=== PATIENT | female | born 1960 | race Caucasian/White ===

== ENCOUNTER 2023-10-27 07:01 | Inpatient (IN) | payer MEDICARE, OTHER, SELFPAY ==
[2023-10-27] VITALS (22 sets, daily range): BP systolic 100–143; BP diastolic 59–83; PULSE 82–140; RESP 18–22; TEMP 36.6–37.2; O2SAT 90–99; BMI 53.8; BMI 53.7
--- NOTE | 2023-10-27 07:07 | ED_ITS ---
HPI - General Adult General Time Seen by Provider: 07:07 <Ady Horan MD - Last Filed: 10/27/23 07:43> Date Seen: 10/27/23 <Ady Horan MD - Last Filed: 10/27/23 07:43> Chief complaint: Abdominal Pain <Ady Horan MD - Last Filed: 10/27/23 07:43> Stated complaint: stomach pain-PT / cardiac issues-EMS <Ady Horan MD - Last Filed: 10/27/23 07:43> Time Seen by Provider: 10/27/23 07:06 <Ady Horan MD - Last Filed: 10/27/23 07:43> Source: patient, RN notes reviewed and old records reviewed <Ady Horan MD - Last Filed: 10/27/23 07:43> Mode of arrival: EMS <Ady Horan MD - Last Filed: 10/27/23 07:43> Limitations: no limitations <Ady Horan MD - Last Filed: 10/27/23 07:43> History of Present Illness HPI narrative: 63-year-old female who presents today with abdominal pain. Patient notes several weeks of ?digestive issues? with nausea vomiting, dry heaves, diarrhea. This is been fairly consistent. Denies any blood in stools. Denies any shortness of breath or chest pain, does state she notes occasional flutter in her chest and that her home nurses noted her heart rate has been high. She has chronic lower extremity edema with a wound that is being treated on the left, increased weeping from the right. Denies any history of cardiac issues including dysrhythmia, heart failure <Ady Horan MD - Last Filed: 10/27/23 07:43> Related Data Home medications: Home Medications Medication Instructions Recorded Confirmed bacitracin 500 unit/gram topical topical 10/27/23 ointment buspirone 10 mg tablet 10 mg PO BID 10/27/23 10/27/23 calcium carbonate 600 mg-vitamin tab PO DAILY 10/27/23 D3 10 mcg (400 unit) tablet cetirizine 10 mg tablet 10 mg PO DAILY 10/27/23 10/27/23 cholecalciferol (vitamin D3) 125 125 mcg PO DAILY 10/27/23 10/27/23 mcg (5,000 unit) capsule citalopram 10 mg tablet 10 mg PO DAILY 10/27/23 10/27/23 citalopram 20 mg tablet 20 mg PO DAILY 10/27/23 10/27/23 hydroxyzine HCl 25 mg tablet 25 mg PO QID 10/27/23 10/27/23 levothyroxine 150 mcg tablet 150 mcg PO DAILY 10/27/23 10/27/23 (Synthroid) omeprazole 40 mg capsule,delayed 40 mg PO DAILY 10/27/23 10/27/23 release triamcinolone acetonide 0.1 % topical 10/27/23 topical ointment <Ady Horan MD - Last Filed: 10/27/23 07:43> Allergies/adverse reactions: Allergies Allergy/AdvReac Type Severity Reaction Status Date / Time Penicillins Allergy Unknown Verified 10/27/23 07:30 <Ady Horan MD - Last Filed: 10/27/23 07:43> [facility] Social History: Social History Smoking Status: Former smoker How often do you have a drink containing alcohol: never AUDIT-C Alcohol total score: 0 Non-prescribed substance use: denies use <Ady Horan MD - Last Filed: 10/27/23 07:43> Exam Narrative: Exam Narrative: General: Well-developed and well-nourished, no acute distress Head: Atraumatic and normocephalic Eyes: Pupils are equal reactive, extraocular motions intact, conjunctiva clear ENT: External nose and ears are normal, posterior pharynx without erythema or exudate Neck: No midline cervical tenderness, full spontaneous range of motion the neck, trachea midline, no adenopathy Heart: Irregular and tachycardic Lungs: Clear to auscultation bilaterally without wheezes or crackles Abdomen: Soft, nontender, nondistended with active bowel sounds Musculoskeletal: No tenderness, deformity, or edema Neurologic: Awake, alert, and oriented x3, no gross focal neurologic deficits, cranial nerves intact as tested Psych: Mood and affect are appropriate Skin: Numerous neurofibroma <Ady Horan MD - Last Filed: 10/27/23 07:43> Const: Vital Signs, click to edit/add: Vital Signs - 24 hr 10/27/23 07:17 10/27/23 07:32 10/27/23 07:33 Temperature 98.0 F Pulse Rate 137 H 133 H Pulse Rate [Right Pulse Oximeter] 140 H Respiratory Rate 22 Blood Pressure 122/72 Blood Pressure [Ri ght Upper Arm] 133/74 Pulse Oximetry 96 96 96 Oxygen Delivery Me thod Room Air 10/27/23 08:00 10/27/23 08:01 10/27/23 08:07 Temperature Pulse Rate 119 H 123 H Pulse Rate [Right Pulse Oximeter] Respiratory Rate Blood Pressure 112/65 100/65 Blood Pressure [Ri ght Upper Arm] Pulse Oximetry 99 98 Oxygen Delivery Me thod 10/27/23 08:31 10/27/23 08:33 Temperature Pulse Rate 132 H Pulse Rate [Right Pulse Oximeter] Respiratory Rate Blood Pressure 142/75 H Blood Pressure [Ri ght Upper Arm] Pulse Oximetry 92 Oxygen Delivery Me thod <Ady Horan MD - Last Filed: 10/27/23 07:43> Vital Signs, click to edit/add: Vital Signs - 24 hr 10/27/23 07:17 10/27/23 07:32 10/27/23 07:33 Temperature 98.0 F Pulse Rate 137 H 133 H Pulse Rate [Right Pulse Oximeter] 140 H Respiratory Rate 22 Blood Pressure 122/72 Blood Pressure [Ri ght Upper Arm] 133/74 Pulse Oximetry 96 96 96 Oxygen Delivery Me thod Room Air 10/27/23 08:00 10/27/23 08:01 10/27/23 08:07 Temperature Pulse Rate 119 H 123 H Pulse Rate [Right Pulse Oximeter] Respiratory Rate Blood Pressure 112/65 100/65 Blood Pressure [Ri ght Upper Arm] Pulse Oximetry 99 98 Oxygen Delivery Me thod 10/27/23 08:31 10/27/23 08:33 Temperature Pulse Rate 132 H Pulse Rate [Right Pulse Oximeter] Respiratory Rate Blood Pressure 142/75 H Blood Pressure [Ri ght Upper Arm] Pulse Oximetry 92 Oxygen Delivery Me thod <Tenisha Mcfadden MD - Last Filed: 10/27/23 09:13> Course Course ED Course: Patient seen and examined, prior records are reviewed including clinical summary. Patient history of neurofibromatosis, hypothyroidism, obesity, anxiety who presents today with nausea, vomiting, diarrhea as well as upper abdominal pain which has been going on for a couple weeks. On exam here, no abdominal tenderness, labs are ordered, consider gastritis or acute cholecystitis. Patient is found to be in atrial fibrillation with RVR, patient denies history of this. Her nausea and gastric issues may be related to this as an anginal equivalent. Also concern for possible pulmonary embolism although patient has no hypoxia pleuritic chest pain. Labs are ordered and Cardizem IV will be gi jasmin. Patient's vital is stable with no respiratory distress, no indication for emergent cardioversion. Plan sign out to oncoming provider with likely admission. <Ady Horan MD - Last Filed: 10/27/23 07:43> Reevaluation(s) Reevaluation #1: I was asked take over the care this patient. Her EKG shows atrial fibrillation with a pulse of 146. Chest x-ray, read by me, shows mild vascular congestion. As I arrived, she was receiving IV Cardizem which did bring her pulse into the 120s and her systolic blood pressure to 100. She remained asymptomatic. And shortly after her blood pressure did rebound to 140 systolic, pulse remained in the 120s to 130s. Blood work returned showing anemia with a hemoglobin of 9.5, hematocrit of 31.1 And a mean cell volume 67. potassium was low at 2.5. Normal magnesium, normal lipase, normal LFTs, normal kidney function. UA was a poor specimen. IV potassium was started this patient did not think she could swallow oral potassium. She was also given IV Zofran for her continued nausea. I did speak to Dr. Kennedy who will accept the patient for admission. Diltiazem drip started in the ED. <Tenisha Mcfadden MD - Last Filed: 10/27/23 09:13> Vital Signs Vital signs: Initial Vital Signs Temperature 98.0 F 10/27/23 07:17 Temperature Source Temporal Artery Scan 10/27/23 07:17 Pulse Rate 140 H 10/27/23 07:17 Respiratory Rate 22 10/27/23 07:17 Blood Pressure 133/74 10/27/23 07:17 Blood Pressure Mean 93 10/27/23 07:17 Blood Pressure Position Sitting 10/27/23 07:17 Pulse Oximetry 96 10/27/23 07:17 Oxygen Delivery Method Room Air 10/27/23 07:17 Vital Signs Temperature 98.0 F 10/27/23 07:17 Pulse Rate 140 H 10/27/23 07:17 Respiratory Rate 22 10/27/23 07:17 Blood Pressure 133/74 10/27/23 07:17 Pulse Oximetry 96 10/27/23 07:17 Oxygen Delivery Method Room Air 10/27/23 07:17 Temperature 98.0 F 10/27/23 07:17 Pulse Rate 132 H 10/27/23 08:33 Respiratory Rate 22 10/27/23 07:17 Blood Pressure 142/75 H 10/27/23 08:31 Pulse Oximetry 92 10/27/23 08:33 Oxygen Delivery Method Room Air 10/27/23 07:17 <Ady Horan MD - Last Filed: 10/27/23 07:43> Initial Vital Signs Temperature 98.0 F 10/27/23 07:17 Temperature Source Temporal Artery Scan 10/27/23 07:17 Pulse Rate 140 H 10/27/23 07:17 Respiratory Rate 22 10/27/23 07:17 Blood Pressure 133/74 10/27/23 07:17 Blood Pressure Mean 93 10/27/23 07:17 Blood Pressure Position Sitting 10/27/23 07:17 Pulse Oximetry 96 10/27/23 07:17 Oxygen Delivery Method Room Air 10/27/23 07:17 Vital Signs Temperature 98.0 F 10/27/23 07:17 Pulse Rate 140 H 10/27/23 07:17 Respiratory Rate 22 10/27/23 07:17 Blood Pressure 133/74 10/27/23 07:17 Pulse Oximetry 96 10/27/23 07:17 Oxygen Delivery Method Room Air 10/27/23 07:17 Temperature 98.0 F 10/27/23 07:17 Pulse Rate 132 H 10/27/23 08:33 Respiratory Rate 22 10/27/23 07:17 Blood Pressure 142/75 H 10/27/23 08:31 Pulse Oximetry 92 10/27/23 08:33 Oxygen Delivery Method Room Air 10/27/23 07:17 <Tenisha Mcfadden MD - Last Filed: 10/27/23 09:13> Medications Administered Medications: Generic Name Dose Route Start Last Admin Trade Name Freq PRN Reason Stop Dose Admin Sodium Chloride 1,000 mls @ 500 mls/hr 10/27/23 07:57 10/27/23 08:17 0.9 % Sodium Chloride 1000 Ml IV 10/27/23 09:56 500 mls/hr .Q2H IRLANDA Administration Potassium Chloride 10 meq in 100 mls @ 100 mls/hr 10/27/23 08:30 10/27/23 08:43 Potassium Chloride IVPB 10/27/23 12:29 100 mls/hr Q90M IRLANDA Administration Discontinued Medications Generic Name Dose Route Start Last Admin Trade Name Freq PRN Reason Stop Dose Admin Diltiazem HCl 20 mg 10/27/23 07:32 10/27/23 07:55 Diltiazem 5 Mg/Ml Inj IVP 10/27/23 07:33 20 mg ONCE ONE Administration Ondansetron HCl 4 mg 10/27/23 08:23 10/27/23 08:31 Ondansetron 2 Mg/Ml Inj IVP 10/27/23 08:24 4 mg ONCE ONE Administration <Ady Horan MD - Last Filed: 10/27/23 07:43> Generic Name Dose Route Start Last Admin Trade Name Freq PRN Reason Stop Dose Admin Sodium Chloride 1,000 mls @ 500 mls/hr 10/27/23 07:57 10/27/23 08:17 0.9 % Sodium Chloride 1000 Ml IV 10/27/23 09:56 500 mls/hr .Q2H IRLANDA Administration Potassium Chloride 10 meq in 100 mls @ 100 mls/hr 10/27/23 08:30 10/27/23 08:43 Potassium Chloride IVPB 10/27/23 12:29 100 mls/hr Q90M IRLANDA Administration Discontinued Medications Generic Name Dose Route Start Last Admin Trade Name Freq PRN Reason Stop Dose Admin Diltiazem HCl 20 mg 10/27/23 07:32 10/27/23 07:55 Diltiazem 5 Mg/Ml Inj IVP 10/27/23 07:33 20 mg ONCE ONE Administration Ondansetron HCl 4 mg 10/27/23 08:23 10/27/23 08:31 Ondansetron 2 Mg/Ml Inj IVP 10/27/23 08:24 4 mg ONCE ONE Administration <Tenisha Mcfadden MD - Last Filed: 10/27/23 09:13> Medical Decision Making MDM Narrative Medical decision making narrative: 63-year-old female presenting with hypokalemia, anemia and atrial fibrillation with RVR. AFib with RVR certainly could be secondary to hypokalemia. Treatment started per above. Patient will be admitted for further management. <Tenisha Mcfadden MD - Last Filed: 10/27/23 09:13> Medical Records Medical records reviewed: Yes I reviewed the patient's medical records <Tenisha Mcfadden MD - Last Filed: 10/27/23 09:13> Lab Data Lab results reviewed: Yes I reviewed the patient's lab results <Tenisha Mcfadden MD - Last Filed: 10/27/23 09:13> Labs: Lab Results 10/27/23 10/27/23 10/27/23 Range/Units 07:21 07:41 08:15 WBC 6.77 (4.50-11.00) K/uL RBC 4.66 (4.00-5.20) m/uL Hgb 9.5 L (12.0-16.0) gm/dL Hct 31.1 L (33.0-51.0) % MCV 67 L (80-100) fL MCH 20 L (26-34) pg MCHC 31 L (32-36) gm/dL RDW Coeff of [place] 22.1 H (11.5-15.5) % Plt Count 385 (140-440) K/uL Neut % (Auto) 84.3 H (42.0-72.0) % Lymph % (Auto) 7.4 L (20-44) % [place] % (Auto) 6.9 (0.0-11.0) % Eos % (Auto) 0.6 (0.0-7.0) % Baso % (Auto) 0.4 (0.0-3.0) % Neut # (Auto) 5.70 (1.7-7.0) K/uL Lymph # (Auto) 0.50 L (0.90-2.90) K/uL [place] # (Auto) 0.50 (0.00-0.90) K/UL Eos # (Auto) 0.04 (0.00-0.50) K/uL Baso # (Auto) 0.03 (0.00-0.30) K/uL Abs Immat Gran (auto) 0.03 (0.00-0.30) K/uL Imm/Tot Granulo (auto) 0.4 % Diff Slide Review Acceptable Review (Acceptable) D-Dimer Quant (PE/DVT) 0.56 H (0.00-0.50) ug/ml Sodium 136 (135-149) mmol/L Potassium 2.5 L* (3.6-5.1) mmol/L Chloride 105 (96-114) mmol/L Carbon Dioxide 17 L (20-32) mmol/L Anion Gap 14 (7-15) mEq/L BUN 12 (7-30) mg/dL Creatinine 0.9 (0.5-1.5) mg/dL Estimated Creat Clear 42.32 Estimated GFR 71 ml/min Glucose 87 (60-115) mg/dL Calcium 9.0 (8.4-10.6) mg/dL Magnesium 1.6 (1.5-2.6) mg/dL Total Bilirubin 0.5 (0.1-1.5) mg/dL Direct Bilirubin 0.3 (0.0-0.5) mg/dL AST 27 (12-35) U/L ALT 23 (4-35) U/L Alkaline Phosphatase 98 (40-150) U/L Total Creatine Kinase 78 (41-117) U/L NT-Pro-B Natriuret Pep 999 pg/mL Total Protein 6.6 (6.0-8.3) g/dL Albumin 3.6 (3.3-5.0) g/dL Lipase 105 (23-300) U/L Urine Color Yellow (Yellow) Urine Appearance Cloudy A (Clear) Urine pH 6.0 (5.0-8.5) Ur Specific [place] >= 1.030 (1.000-1.030) Urine Protein 1+ A (Negative) Urine Glucose (UA) Negative (Negative) Urine Ketones Trace A (Negative) Urine Blood Trace-intact A (Negative) Urine Nitrite Negative (Negative) Urine Bilirubin 1+ A (Negative) Urine Urobilinogen 0.2 (0.2-1.0) Ur Leukocyte Esterase Trace A (Negative) Urine RBC 0-2 (0-2) Urine WBC 5-10 A (0-5) Ur Squamous Epith Cells Moderate A (None-Few) Amorphous Sediment Few A (None) Urine Bacteria Moderate A (None) Fine Granular Casts Moderate A (None) Lab Acknowledgement 10/27/23 Range/Units 08:30 WBC (4.50-11.00) K/uL RBC (4.00-5.20) m/uL Hgb (12.0-16.0) gm/dL Hct (33.0-51.0) % MCV (80-100) fL MCH (26-34) pg MCHC (32-36) gm/dL RDW Coeff of [place] (11.5-15.5) % Plt Count (140-440) K/uL Neut % (Auto) (42.0-72.0) % Lymph % (Auto) (20-44) % [place] % (Auto) (0.0-11.0) % Eos % (Auto) (0.0-7.0) % Baso % (Auto) (0.0-3.0) % Neut # (Auto) (1.7-7.0) K/uL Lymph # (Auto) (0.90-2.90) K/uL [place] # (Auto) (0.00-0.90) K/UL Eos # (Auto) (0.00-0.50) K/uL Baso # (Auto) (0.00-0.30) K/uL Abs Immat Gran (auto) (0.00-0.30) K/uL Imm/Tot Granulo (auto) % Diff Slide Review (Acceptable) D-Dimer Quant (PE/DVT) (0.00-0.50) ug/ml Sodium (135-149) mmol/L Potassium (3.6-5.1) mmol/L Chloride (96-114) mmol/L Carbon Dioxide (20-32) mmol/L Anion Gap (7-15) mEq/L BUN (7-30) mg/dL Creatinine (0.5-1.5) mg/dL Estimated Creat Clear Estimated GFR ml/min Glucose (60-115) mg/dL Calcium (8.4-10.6) mg/dL Magnesium (1.5-2.6) mg/dL Total Bilirubin (0.1-1.5) mg/dL Direct Bilirubin (0.0-0.5) mg/dL AST (12-35) U/L ALT (4-35) U/L Alkaline Phosphatase (40-150) U/L Total Creatine Kinase (41-117) U/L NT-Pro-B Natriuret Pep pg/mL Total Protein (6.0-8.3) g/dL Albumin (3.3-5.0) g/dL Lipase (23-300) U/L Urine Color (Yellow) Urine Appearance (Clear) Urine pH (5.0-8.5) Ur Specific [place] (1.000-1.030) Urine Protein (Negative) Urine Glucose (UA) (Negative) Urine Ketones (Negative) Urine Blood (Negative) Urine Nitrite (Negative) Urine Bilirubin (Negative) Urine Urobilinogen (0.2-1.0) Ur Leukocyte Esterase (Negative) Urine RBC (0-2) Urine WBC (0-5) Ur Squamous Epith Cells (None-Few) Amorphous Sediment (None) Urine Bacteria (None) Fine Granular Casts (None) Lab Acknowledgement Test Added <Ady Horan MD - Last Filed: 10/27/23 07:43> Lab Results 10/27/23 10/27/23 10/27/23 Range/Units 07:21 07:41 08:15 WBC 6.77 (4.50-11.00) K/uL RBC 4.66 (4.00-5.20) m/uL Hgb 9.5 L (12.0-16.0) gm/dL Hct 31.1 L (33.0-51.0) % MCV 67 L (80-100) fL MCH 20 L (26-34) pg MCHC 31 L (32-36) gm/dL RDW Coeff of [place] 22.1 H (11.5-15.5) % Plt Count 385 (140-440) K/uL Neut % (Auto) 84.3 H (42.0-72.0) % Lymph % (Auto) 7.4 L (20-44) % [place] % (Auto) 6.9 (0.0-11.0) % Eos % (Auto) 0.6 (0.0-7.0) % Baso % (Auto) 0.4 (0.0-3.0) % Neut # (Auto) 5.70 (1.7-7.0) K/uL Lymph # (Auto) 0.50 L (0.90-2.90) K/uL [place] # (Auto) 0.50 (0.00-0.90) K/UL Eos # (Auto) 0.04 (0.00-0.50) K/uL Baso # (Auto) 0.03 (0.00-0.30) K/uL Abs Immat Gran (auto) 0.03 (0.00-0.30) K/uL Imm/Tot Granulo (auto) 0.4 % Diff Slide Review Acceptable Review (Acceptable) D-Dimer Quant (PE/DVT) 0.56 H (0.00-0.50) ug/ml Sodium 136 (135-149) mmol/L Potassium 2.5 L* (3.6-5.1) mmol/L Chloride 105 (96-114) mmol/L Carbon Dioxide 17 L (20-32) mmol/L Anion Gap 14 (7-15) mEq/L BUN 12 (7-30) mg/dL Creatinine 0.9 (0.5-1.5) mg/dL Estimated Creat Clear 42.32 Estimated GFR 71 ml/min Glucose 87 (60-115) mg/dL Calcium 9.0 (8.4-10.6) mg/dL Magnesium 1.6 (1.5-2.6) mg/dL Total Bilirubin 0.5 (0.1-1.5) mg/dL Direct Bilirubin 0.3 (0.0-0.5) mg/dL AST 27 (12-35) U/L ALT 23 (4-35) U/L Alkaline Phosphatase 98 (40-150) U/L Total Creatine Kinase 78 (41-117) U/L NT-Pro-B Natriuret Pep 999 pg/mL Total Protein 6.6 (6.0-8.3) g/dL Albumin 3.6 (3.3-5.0) g/dL Lipase 105 (23-300) U/L Urine Color Yellow (Yellow) Urine Appearance Cloudy A (Clear) Urine pH 6.0 (5.0-8.5) Ur Specific [place] >= 1.030 (1.000-1.030) Urine Protein 1+ A (Negative) Urine Glucose (UA) Negative (Negative) Urine Ketones Trace A (Negative) Urine Blood Trace-intact A (Negative) Urine Nitrite Negative (Negative) Urine Bilirubin 1+ A (Negative) Urine Urobilinogen 0.2 (0.2-1.0) Ur Leukocyte Esterase Trace A (Negative) Urine RBC 0-2 (0-2) Urine WBC 5-10 A (0-5) Ur Squamous Epith Cells Moderate A (None-Few) Amorphous Sediment Few A (None) Urine Bacteria Moderate A (None) Fine Granular Casts Moderate A (None) Lab Acknowledgement 10/27/23 Range/Units 08:30 WBC (4.50-11.00) K/uL RBC (4.00-5.20) m/uL Hgb (12.0-16.0) gm/dL Hct (33.0-51.0) % MCV (80-100) fL MCH (26-34) pg MCHC (32-36) gm/dL RDW Coeff of [place] (11.5-15.5) % Plt Count (140-440) K/uL Neut % (Auto) (42.0-72.0) % Lymph % (Auto) (20-44) % [place] % (Auto) (0.0-11.0) % Eos % (Auto) (0.0-7.0) % Baso % (Auto) (0.0-3.0) % Neut # (Auto) (1.7-7.0) K/uL Lymph # (Auto) (0.90-2.90) K/uL [place] # (Auto) (0.00-0.90) K/UL Eos # (Auto) (0.00-0.50) K/uL Baso # (Auto) (0.00-0.30) K/uL Abs Immat Gran (auto) (0.00-0.30) K/uL Imm/Tot Granulo (auto) % Diff Slide Review (Acceptable) D-Dimer Quant (PE/DVT) (0.00-0.50) ug/ml Sodium (135-149) mmol/L Potassium (3.6-5.1) mmol/L Chloride (96-114) mmol/L Carbon Dioxide (20-32) mmol/L Anion Gap (7-15) mEq/L BUN (7-30) mg/dL Creatinine (0.5-1.5) mg/dL Estimated Creat Clear Estimated GFR ml/min Glucose (60-115) mg/dL Calcium (8.4-10.6) mg/dL Magnesium (1.5-2.6) mg/dL Total Bilirubin (0.1-1.5) mg/dL Direct Bilirubin (0.0-0.5) mg/dL AST (12-35) U/L ALT (4-35) U/L Alkaline Phosphatase (40-150) U/L Total Creatine Kinase (41-117) U/L NT-Pro-B Natriuret Pep pg/mL Total Protein (6.0-8.3) g/dL Albumin (3.3-5.0) g/dL Lipase (23-300) U/L Urine Color (Yellow) Urine Appearance (Clear) Urine pH (5.0-8.5) Ur Specific [place] (1.000-1.030) Urine Protein (Negative) Urine Glucose (UA) (Negative) Urine Ketones (Negative) Urine Blood (Negative) Urine Nitrite (Negative) Urine Bilirubin (Negative) Urine Urobilinogen (0.2-1.0) Ur Leukocyte Esterase (Negative) Urine RBC (0-2) Urine WBC (0-5) Ur Squamous Epith Cells (None-Few) Amorphous Sediment (None) Urine Bacteria (None) Fine Granular Casts (None) Lab Acknowledgement Test Added <Tenisha Mcfadden MD - Last Filed: 10/27/23 09:13> Imaging Data Chest x-ray: Attestation: I have reviewed the pertinent imaging results. <Tenisha Mcfadden MD - Last Filed: 10/27/23 09:13> Radiologist's impression: One view(s) of the chest. Comparison: None available. Findings: Mildly enlarged cardiomediastinal silhouette. Lungs are hypoinflated with bronchovascular crowding. Mild bilateral interstitial opacities. No focal consolidation. No pleural effusion or pneumothorax. No free air beneath the righ t hemidiaphragm. No acute osseous abnormality. Impression: Cardiomegaly with mild pulmonary vascular congestion/interstitial edema. No focal consolidation. <Tenisha Mcfadden MD - Last Filed: 10/27/23 09:13> ECG Data Attestation: I personally reviewed and interpreted this ECG as follows: <Ady Horan MD - Last Filed: 10/27/23 07:43> I personally reviewed and interpreted this ECG as follows: <Tenisha Mcfadden MD - Last Filed: 10/27/23 09:13> Interpretation: Performed at 7:21 a.m. demonstrates atrial fibrillation with RVR, rate 146, normal axis, QTC 367, nonspecific ST changes. No prior for comparison. <Ady Horan MD - Last Filed: 10/27/23 07:43> Discharge Plan Discharge Clinical Impression: Atrial fibrillation with RVR, Anemia, Hypokalemia <Ady Horan MD - Last Filed: 10/27/23 07:43> Patient Disposition: Admitted As Observation <Ady Horan MD - Last Filed: 10/27/23 07:43> Condition: Stable <Ady Horan MD - Last Filed: 10/27/23 07:43> Prescriptions: No Action cetirizine 10 mg tablet 10 mg PO DAILY citalopram 10 mg tablet 10 mg PO DAILY bacitracin 500 unit/gram ointment topical omeprazole 40 mg capsule,delayed release(DR/EC) 40 mg PO DAILY citalopram 20 mg tablet 20 mg PO DAILY triamcinolone acetonide 0.1 % ointment topical buspirone 10 mg tablet 10 mg PO BID levothyroxine [Synthroid] 150 mcg tablet 150 mcg PO DAILY hydroxyzine HCl 25 mg tablet 25 mg PO QID cholecalciferol (vitamin D3) 125 mcg (5,000 unit) capsule 125 mcg PO DAILY calcium carbonate-vitamin D3 600 mg-10 mcg (400 unit) tablet PO DAILY <Ady Horan MD - Last Filed: 10/27/23 07:43>
--- NOTE | 2023-10-27 07:32 | XR_ITS ---
Patient: ELIZ LAYTON Facility:?[facility] Patient ID:?[id number] Site Patient ID:?[id number]. Site :?[id number] Study:?XRay-Chest 1V-10/27/2023 7:59:00 AM Ordering Physician:?DR. CLEARY Final Report: Indication: Abdominal pain. Technique: One view(s) of the chest. Comparison: None available. Findings: Mildly enlarged cardiomediastinal silhouette. Lungs are hypoinflated with bronchovascular crowding. Mild bilateral interstitial opacities. No focal consolidation. No pleural effusion or pneumothorax. No free air beneath the right hemidiaphragm. No acute osseous abnormality. Impression: Cardiomegaly with mild pulmonary vascular congestion/interstitial edema. No focal consolidation. Dictated by Diann Licona MD @ 10/27/2023 8:11:05 AM Signed by:?Diann Licona MD @10/27/2023 8:11:05 AM (Electronic Signature)
[2023-10-27 07:55] LABS: Basophils Absolute Auto 0.03 K/uL (0.00-0.30); Basophils Percent Auto 0.4 % (0.0-3.0); Eosinophils Absolute Auto 0.04 K/uL (0.00-0.50); Eosinophils Percent Auto 0.6 % (0.0-7.0); Hematocrit 31.1 % (33.0-51.0); Hemoglobin* 9.5 gm/dL (12.0-16.0); Immature Granulocytes Abs Auto 0.03 K/uL (0.00-0.30); Immature Granulocytes Pct Auto 0.4 %; Lymphocytes Percent Auto 7.4 % (20-44); Mean Corpuscular HGB Conc 31 gm/dL (32-36); Mean Corpuscular Hemoglobin 20 pg (26-34); Mean Corpuscular Volume 67 fL (80-100); Monocytes Percent Auto 6.9 % (0.0-11.0); Neutrophils Percent Auto 84.3 % (42.0-72.0); Platelet Count* 385 K/uL (140-440); RDW Coefficient of Variation % 22.1 % (11.5-15.5); Red Blood Count 4.66 m/uL (4.00-5.20); White Blood Count* 6.77 K/uL (4.50-11.00)
[2023-10-27] MEDS: dilTIAZem 5 MG/ML inj 20 MG IVP (07:55)
[2023-10-27 08:07] LABS: Albumin* 3.6 g/dL (3.3-5.0); Chloride* 105 mmol/L (96-114); Sodium* 136 mmol/L (135-149)
[2023-10-27 08:10] LABS: Anion Gap 14 mEq/L (7-15); Aspartate Amino Transferase* 27 U/L (12-35); Bilirubin Direct* 0.3 mg/dL (0.0-0.5); Bilirubin Total* 0.5 mg/dL (0.1-1.5); Blood Urea Nitrogen* 12 mg/dL (7-30); Carbon Dioxide* 17 mmol/L (20-32); Creatinine* 0.9 mg/dL (0.5-1.5); Est. Creatinine Clearance* 42.32; Estimated Glomerular Filt Rate 71 ml/min; Total Protein* 6.6 g/dL (6.0-8.3)
[2023-10-27 08:11] LABS: Alanine Aminotransferase* 23 U/L (4-35); Alkaline Phosphatase* 98 U/L (40-150); Glucose* 87 mg/dL (60-115); Magnesium* 1.6 mg/dL (1.5-2.6)
[2023-10-27 08:12] LABS: D Dimer Quantitative* 0.56 ug/ml (0.00-0.50); Potassium* 2.5 mmol/L (3.6-5.1)
[2023-10-27] MEDS: 0.9 % SODIUM CHLORIDE 1000 ml 1,000 ML 500 ML IV (08:17)
[2023-10-27 08:22] LABS: NT Pro B Type NatriureticPept* 999 pg/mL
[2023-10-27 08:23] LABS: Appearance Urine Cloudy (Clear); Bilirubin Urine 1+ (Negative); Blood Urine Trace-intact (Negative); Color Urine Yellow (Yellow); Glucose Urine Negative (Negative); Ketones Urine Trace (Negative); Protein Urine 1+ (Negative); Specific Gravity Urine >= 1.030 (1.000-1.030)
[2023-10-27 08:24] LABS: Leukocyte Esterase Urine Trace (Negative); Nitrite Urine Negative (Negative); Urobilinogen Urine 0.2 (0.2-1.0)
[2023-10-27 08:25] LABS: Lipase* 105 U/L (23-300)
[2023-10-27 08:28] LABS: Slide Review Reflex Yes
[2023-10-27 08:29] LABS: Slide Review Acceptable Review (Acceptable)
[2023-10-27] MEDS: ONDANSETRON 2 MG/ML inj 4 MG IVP (08:31)
[2023-10-27 08:37] LABS: RBC Urine 0-2 (0-2)
[2023-10-27 08:38] LABS: Amorphous Sediment Urine Few; Bacteria Urine Moderate; Squamous Epithelial Cell Urine Moderate (None-Few)
[2023-10-27 08:39] LABS: Fine Granular Casts Urine Moderate
[2023-10-27] MEDS: POTASSIUM CHLORIDE 10 MEQ/100 ML PIGGYBACK 100 MEQ IVPB ×3 (08:43→11:15)
[2023-10-27 08:50] LABS: Creatine Kinase* 78 U/L (41-117)
[2023-10-27 09:22] LABS: Thyroid Stimulating Hormone* 0.087 uIU/mL (0.270-4.20)
[2023-10-27] MEDS: dilTIAZem HCL 125 MG in 0.9 % SODIUM CHLORIDE 100 ml 100 ML 10 MG IVPB (09:23)
[2023-10-27] MEDS: METOPROLOL TARTRATE 25 MG TABLET PO (09:29)
--- NOTE | 2023-10-27 10:43 | P.IMHP_ITS ---
Hospitalist- H&P: HPI History of Present Illness Date Seen: 10/27/23 Chief complaint: stomach pain-PT / cardiac issues-EMS Narrative: ADMISSION HISTORY AND PHYSICAL - HOSPITALIST Chief Complaint: Worsening diarrhea, vomiting, weakness, elevated heart rate HPI: This is a 63 year female with a significant past medical history of neurofibromatosis, morbid obesity, chronic lymphedema chronic anxiety who reports 2 weeks of worsening gastroenteritis type symptoms. She said it started with diarrhea that was coming once or twice a day. This has accelerated in both urgency, frequency in the last 3-4 days. She has not been able to eat a solid meal since 5 days prior to admission. She was also vomiting last night. She reports no fever, no abdominal pain. She reports some bloody stools thinks that is because she has irritated hemorrhoids or sores on her bottom. Increasing dizziness and elevated heart rate noted as well this week. She has a home health nurse who comes twice a week to noted elevated heart rate over the last 10 days. She urged Maggy to be seen, Jaye in declined until this morning she came in by EMS. In the emergency room she was noted to be tachycardic with a heart rate in the 140s. She was in atrial fibrillation. Her blood pressures have been in the normal range other than 1 outlier of 100/65. She has not been known to have atrial fibrillation or any cardiac disease in the past. She was also noted to have significant hypokalemia and a significant anemia. She is not diabetic. She has a BMI of 54. She has chronic neurofibromatosis. She has chronic hypothyroidism and anxiety. She has chronic lymphedema. ER COURSE: Potassium IV, IV Dilt a Dilt drip were started in the ED. She received fluid bolus and p.o. metoprolol. CODE STATUS: FULL CODE EMERGENCY CONTACT PLAN: Ashok Guoy? Friend?Rel to [facility]? [phone]?Cell Phone? I've updated the PFSH, medications and allergies in the Expanse tabs. INVESTIGATIONS: LABS/MICRO/ECG/IMAGING CBC reflects a normal white blood cell count. Her hemoglobin is 9.5. Her MCV is 67. Her platelet count is 385. -the only hemoglobin I can find in the history is back in 2014 she was 13.9. D-dimer 0.56 Electrolytes reflect a mild acidosis with a carbon dioxide of 17 - f/u bicarb on gas was 22. A critically low potassium of 2.5 Otherwise she has normal renal function, normal glucose, normal magnesium, normal LFTs BNP is 999 TSH is suppressed at 0.087 (TSH was 0.74 on September 12) Free T4 pending A1c was 5.2 in July of 2022. Hemoglobin A1c 4.9 Normal pH. PCO2 36. Bicarb 22. Troponin 0.02 CRP undetectable Procalcitonin 27.3 UA shows cloudy appearance. 1+ protein. 1+ bilirubin. Trace leukocyte esterase. Negative nitrate. 5-10 white blood cells. Active sediment. Urine culture in process EKG - EKG shows sinus tachycardia with PACs. Septal infarct -age indeterminate. ST abnormality. Possible lateral subendocardial injury. EKG - 2014. NSR. Normal ECG Impression: Cardiomegaly with mild pulmonary vascular congestion/interstitial edema. No focal consolidation. Echo 08/19/20 Final Impressions: 1. Normal LV size, borderline wall thickness, normal global systolic function with an estimated EF of 60 - 65%. 2. Right ventricular cavity size is normal, global systolic RV function is normal. 3. Moderately enlarged left atrium. REVIEW OF SYSTEMS: 12-point ROS completed with patient and negative unless otherwise stated in HPI or below. PHYSICAL EXAM: CONSTITUTIONAL: Stable. Patient is coherent and can tell her story. VITAL SIGNS: see record. HEENT: Normocephalic, atraumatic. PERRL, EOMI, conjunctivae pink, no scleral icterus. Ears and nose externally normal. Pharynx normal. NECK: No JVD. No carotid bruit, no thyromegaly, no adenopathy. CHEST: Clear to auscultation bilaterally HEART: S1 and S2 normal. No harsh murmurs. Edema MUSCULOSKELETAL: No gross joint deformity or swelling. NEURO: Cranial nerves intact. Grossly intact. No asymmetric findings. SKIN: Diffuse neurofibromas, ext hemorrhoid tissue noted, not inflamed or thrombosed. diffuse acanthosis nigricans - neck. PSYCHIATRIC: Euthymic. ADMIT TO MEDSURG: FLOOR CARE DVT: Lovenox GI: PO intake, PPI Time spent: Today I spent 75 minutes seeing the patient, discussing the patient with ER staff, reviewing Expanse and EPIC notes/diagnostics, discussing the care plan with our care time that includes social work, PT/OT, pharmacy, RT, long-term and documenting my impressions and plan in the medical record. [facility] Medical History Neurofibromatosis, type I (von Recklinghausen's disease) ?Q85.01 - Neurofibromatosis, type 1 (ICD-10) Morbid obesity ?E66.01 - Morbid (severe) obesity due to excess calories (ICD-10) Hypothyroidism ?E03.9 - Hypothyroidism, unspecified (ICD-10) Major depression ?F32.9 - Major depressive disorder, single episode, unspecified (ICD-10) Chronic anxiety ?F41.9 - Anxiety disorder, unspecified (ICD-10) Lymphedema ?I89.0 - Lymphedema, not elsewhere classified (ICD-10) Chronic stasis dermatitis ?I87.2 - Venous insufficiency (chronic) (peripheral) (ICD-10) Asthma ?J45.909 - Unspecified asthma, uncomplicated (ICD-10) ANGELO (obstructive sleep apnea) ?G47.33 - Obstructive sleep apnea (adult) (pediatric) (ICD-10) Surgical History H/O breast biopsy ?Z98.890 - Other specified postprocedural states (ICD-10) Status post excisional biopsy ?Z98.890 - Other specified postprocedural states (ICD-10) Cataract ?H26.9 - Unspecified cataract (ICD-10) Social History (Updated 10/27/23 @ 11:47 by Gayathri Kennedy MD) Narrative: Lives alone in [place]. 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 Nonsmoker. Drinks weekly. Never . No children. she designates [place] Guo, friend, as emergency contact. She has a Uncle Rene who would also be contacted. Does not drive. What is your current living situation?: I presently have a place to live Problems where you live: no known problems Problems where you live details: n/a In the past 12 months, utilities in danger of being shut off: no In past 12 months, lack of transportation kept you from medical appts, meetings, work, or getting things needed for daily living: no In the past 12 mos, have been you worried that your food would run out before you had money to buy more?: never true In the past 12 mos, the food you bought just didn't last and you didn't have money to buy more?: never true Highest level of school completed/degree received: some college, no degree Smoking Status: Former smoker How often do you have a drink containing alcohol: never How many standard drinks containing alcohol do you have on a typical day: 3 or 4 How often do you have six or more drinks on one occasion: Monthly AUDIT-C Alcohol total score: 3 Non-prescribed substance use: denies use Caffeine: Yes (soda) How often does anyone, including family, friends and others, physically hurt you : never How often does anyone, including family, friends and others, insult or talk down to you: never How often does anyone, including family, friends and others, threaten you with harm: never How often does anyone, including family, friends and others, scream or curse at you: never service: No Meds Home Medications and Allergies Home Medications Medication Instructions Recorded Confirmed Type acetaminophen 325 mg tablet 650 mg PO Q6H PRN 10/27/23 10/27/23 History bacitracin 500 unit/gram topical 1 applic topical BID 10/27/23 10/27/23 History ointment buspirone 10 mg tablet 10 mg PO BID 10/27/23 10/27/23 History calcium carbonate 600 mg-vitamin 1 tab PO DAILY 10/27/23 10/27/23 History D3 10 mcg (400 unit) tablet cetirizine 10 mg tablet 10 mg PO DAILY 10/27/23 10/27/23 History cholecalciferol (vitamin D3) 125 125 mcg PO DAILY 10/27/23 10/27/23 History mcg (5,000 unit) capsule citalopram 10 mg tablet 10 mg PO DAILY 10/27/23 10/27/23 History citalopram 20 mg tablet 20 mg PO DAILY 10/27/23 10/27/23 History hydroxyzine HCl 25 mg tablet 25 mg PO Q6H PRN 10/27/23 10/27/23 History ipratropium 0.5 mg-albuterol 3 mg 3 ml inhalation Q6H PRN 10/27/23 10/27/23 History (2.5 mg base)/3 mL nebulization soln levothyroxine 150 mcg tablet 150 mcg PO DAILY 10/27/23 10/27/23 History (Synthroid) melatonin 10 mg capsule 20 mg PO HS 10/27/23 10/27/23 History omeprazole 40 mg capsule,delayed 40 mg PO DAILY 10/27/23 10/27/23 History release taurine 500 mg capsule (Pure 1,000 mg PO DAILY 10/27/23 10/27/23 History Taurine) triamcinolone acetonide 0.1 % 1 applic topical BID 10/27/23 10/27/23 History topical ointment valerian root 500 mg capsule 500 mg PO HS 10/27/23 10/27/23 History Allergies Allergy/AdvReac Type Severity Reaction Status Date / Time Penicillins Allergy Unknown Verified 10/27/23 07:30 Exam Const: Vital Signs, click to edit/add: Vital Signs - 24 hr 10/27/23 07:17 10/27/23 07:32 10/27/23 07:33 Temperature 98.0 F Pulse Rate 137 H 133 H Pulse Rate [Right Pulse Oximeter] 140 H Respiratory Rate 22 Blood Pressure 122/72 Blood Pressure [Ri ght Upper Arm] 133/74 Pulse Oximetry 96 96 96 [facility] 10/27/23 08:00 10/27/23 08:01 10/27/23 08:07 Temperature Pulse Rate 119 H 123 H Pulse Rate [Right Pulse Oximeter] Respiratory Rate Blood Pressure 112/65 100/65 Blood Pressure [Ri ght Upper Arm] Pulse Oximetry 99 98 Oxygen Delivery [place] thod 10/27/23 08:31 10/27/23 08:33 10/27/23 09:00 Temperature Pulse Rate 132 H 133 H Pulse Rate [Right Pulse Oximeter] Respiratory Rate Blood Pressure 142/75 H Blood Pressure [Ri ght Upper Arm] Pulse Oximetry 92 94 Oxygen Delivery Ga thod 10/27/23 09:01 10/27/23 09:30 10/27/23 09:32 Temperature Pulse Rate 124 H 124 H Pulse Rate [Right Pulse Oximeter] Respiratory Rate Blood Pressure 126/60 124/59 L Blood Pressure [Ri ght Upper Arm] Pulse Oximetry 95 90 Oxygen Delivery Ga thod 10/27/23 10:01 Temperature Pulse Rate Pulse Rate [Right Pulse Oximeter] Respiratory Rate Blood Pressure 118/65 Blood Pressure [Ri ght Upper Arm] Pulse Oximetry Oxygen Delivery [facility] Hospitalist - H&P: Result Labs Labs: Short CBC 10/27/23 Range/Units 07:41 WBC 6.77 (4.50-11.00) K/uL Hgb 9.5 L (12.0-16.0) gm/dL Hct 31.1 L (33.0-51.0) % Plt Count 385 (140-440) K/uL BMP 10/27/23 07:41 Sodium 136 Potassium 2.5 L* Chloride 105 Carbon Dioxide 17 L BUN 12 Creatinine 0.9 Glucose 87 Calcium 9.0 Cardiac Enzymes 10/27/23 Range/Units 07:41 Total Creatine Kinase 78 (41-117) U/L Liver Function 10/27/23 Range/Units 07:41 Total Bilirubin 0.5 (0.1-1.5) mg/dL Direct Bilirubin 0.3 (0.0-0.5) mg/dL AST 27 (12-35) U/L ALT 23 (4-35) U/L Alkaline Phosphatase 98 (40-150) U/L Albumin 3.6 (3.3-5.0) g/dL Urine 10/27/23 Range/Units 08:15 Urine Color Yellow (Yellow) Urine Appearance Cloudy A (Clear) Urine pH 6.0 (5.0-8.5) Ur Specific [place] >= 1.030 (1.000-1.030) Urine Protein 1+ A (Negative) Urine Glucose (UA) Negative (Negative) Assessment and Plan Assessment and plan (1) AGE (acute gastroenteritis): Problem comment: Diarrhea has been accelerating over the last few days and urgency and frequency. Bloody stools noted by patient. Vomiting as well. No solid food for the last 5 days Supportive cares, stool culture, stool PCR and C diff all pending Status: Acute (2) Atrial fibrillation with RVR: Problem comment: New diagnosis. Clinically it sounds like she has had AFib RVR for a couple of weeks. She did have a dilated left atrium on echo in 2018. I am repeating her echo. Fortunately, patient converted upon arrival to the floor. Diltiazem drip is now being held. I will monitor her vital signs and heart rate. I think possibly this GI illness and dehydration over the last couple of weeks induced her AFib. Anticoagulation is tricky at this point is I am not sure which way her GI bleeding is going to go. I will hold anticoagulation at this time. Status: Acute (3) Iron deficiency anemia: Problem comment: Patient thinks that she has hemorrhoids. No actively inflamed hemorrhoidal tissue identified. I will guaiac all stools. Will monitor her hemoglobin. She is iron deficient. Iron panel pending. Status: Acute (4) Hypokalemia: Problem comment: Admission potassium 2.5 Two 10 mEq IV bumps started in the ED -likely due to prolonged diarrhea -trend Status: Acute (5) Hypothyroidism: Problem comment: TSH suppressed. T4 pending. I adjusted the dose of her levothyroxine from 150- 125 mcg daily Status: Acute (6) Neurofibromatosis, type I (von Recklinghausen's disease): Problem comment: There is also a family history of Graf disease. And is due for outpatient colonoscopy. Patient follows with ophthalmology routinely. Status: Acute (7) Chronic stasis dermatitis: Problem comment: In combination with moderate to severe lymphedema. Has a wound care nurse twice a week. Currently in stable condition. Topical Vaseline with compression currently. P.r.n. bacitracin. Status: Acute (8) Lymphedema: Problem comment: Moderate to severe. Status: Acute (9) Asthma: Problem comment: History of smoking. Quit 25 years ago. Uses DuoNebs p.r.n.. Status: Acute (10) Chronic anxiety: Problem comment: BusPar b.i.d. Status: Acute (11) ANGELO (obstructive sleep apnea): Problem comment: Noncompliant with CPAP. Needs outpatient sleep study. Status: Acute (12) Morbid obesity: Problem comment: BMI 54 Status: Acute
[2023-10-27 11:07] LABS: HCO3 VBG 22 mmol/L (21-28); PCO2 VBG 36 mmHG (40-50); PO2 VBG 39.2 mmHG (25-47); pH VBG 7.383 (7.32-7.43)
[2023-10-27 11:08] LABS: Hemoglobin A1C* 4.9 % (0-5.6)
[2023-10-27 11:12] LABS: C Reactive Protein* < 0.5 mg/dL (0.5-1.0)
[2023-10-27 11:20] LABS: Troponin I* 0.02 ng/mL (0.01-0.04)
[2023-10-27 11:46] LABS: Iron* 20 ug/dL (37-170)
[2023-10-27 11:55] LABS: Percent Iron Saturation 6 % (20-50); Total Iron Binding Capacity 330 ug/dL (265-497)
[2023-10-27] MEDS: CITALOPRAM HYDROBROMIDE 20 MG TABLET 30 MG PO (12:32)
[2023-10-27] MEDS: PANTOPRAZOLE SODIUM 40 MG INJ IVP (12:33)
[2023-10-27] MEDS: BUSPIRONE 10 MG TABLET PO ×2 (12:33→20:32)
[2023-10-27] MEDS: 0.9 % SODIUM CH + KCL 20 mEq/L 1,000 ML 125 ML IV ×2 (12:48→20:32)
[2023-10-27] MEDS: ONDANSETRON ODT 4 MG TAB PO (14:44)
[2023-10-27] MEDS: POTASSIUM BICARB 25 MEQ EFFERVESCENT TAB PO ×3 (14:45→18:58)
[2023-10-27] MEDS: NYSTATIN CREAM 30 GM 1 APPLIC TOPICAL ×2 (14:45→20:32)
--- NOTE | 2023-10-27 14:56 | PC.NURSE ---
Pt up to unit @ 1040, on dilt drip for Afib w/ RVR infusing @ 10 mg/ml/hr and IV potassium. On arrival, [employer] stated that she had converted to NSR down in ED. Dilt drip turned down to 5 mg/ml/hr @ 1045, new potassium bag hung. Upon arrival, VSS, RA. Denies pain. LS clear, S1 & S2 heart sounds. No murmur. Hyperactive bowel sounds- has had diarrhea w/ n/v last 2 weeks per pt. Nausea off and on throughout shift. Pre-medicated w/ oral zofran before giving oral potassium. Up SBA to bathroom, brief on but pt is continent of bowel and bladder. Voided x2 (adequate UOP), moderate liquid BM x1- stool samples sent to lab, results pending. Skin w/ numerous neurofibromas, right leg w/ edema and weeping wounds- ABDs and IVAN wraps applied bilaterally. Has open area on bottom from frequent stooling- barrier cream applied with relief. Home care nurse sees pt 2x a week for leg wounds. PIV x2- NS w/ 20K infusing @ 125 cc/hr. Will continue to monitor, follow POC, and keep pt and family updated. Karli Tavarez RN
[2023-10-27 15:14] LABS: Fecal Occult Blood* Positive (Negative)
[2023-10-27 16:31] LABS: C.Difficile Negative (Negative); CDIFFEPI 027 PRESUMPTIVE NEGATIVE (Negative)
[2023-10-27 18:12] LABS: Chloride* 108 mmol/L (96-114); Potassium* 3.5 mmol/L (3.6-5.1); Sodium* 135 mmol/L (135-149)
[2023-10-27 18:15] LABS: Anion Gap 10 mEq/L (7-15); Carbon Dioxide* 17 mmol/L (20-32); Creatinine* 0.7 mg/dL (0.5-1.5); Est. Creatinine Clearance* 42.32; Estimated Glomerular Filt Rate 96 ml/min
[2023-10-27 18:16] LABS: Blood Urea Nitrogen* 12 mg/dL (7-30); Calcium* 8.5 mg/dL (8.4-10.6); Glucose* 92 mg/dL (60-115)
[2023-10-27 18:20] LABS: Basophils Absolute Auto 0.02 K/uL (0.00-0.30); Basophils Percent Auto 0.2 % (0.0-3.0); Eosinophils Absolute Auto 0.06 K/uL (0.00-0.50); Eosinophils Percent Auto 0.7 % (0.0-7.0); Hematocrit 29.4 % (33.0-51.0); Immature Granulocytes Abs Auto 0.04 K/uL (0.00-0.30); Immature Granulocytes Pct Auto 0.5 %; Lymphocytes Percent Auto 7.4 % (20-44); Mean Corpuscular HGB Conc 31 gm/dL (32-36); Mean Corpuscular Hemoglobin 21 pg (26-34); Mean Corpuscular Volume 67 fL (80-100); Monocytes Percent Auto 8.2 % (0.0-11.0); Platelet Count* 277 K/uL (140-440); RDW Coefficient of Variation % 22.2 % (11.5-15.5); Red Blood Count 4.38 m/uL (4.00-5.20); White Blood Count* 8.42 K/uL (4.50-11.00)
[2023-10-27 18:21] LABS: Slide Review Reflex No
--- NOTE | 2023-10-27 19:37 | PC.NURSE ---
End of shift: patient pleasant and cooperative, A&O. VSS, afebrile. SpO2 was maintained greater than 90% on room air. Complained of pain between shoulder blades which improved with use of heat. Lung sounds clear but diminished. Telemetry per report from [facility] showed nsr. She had 3 small loose BMs this evening. She declined to order dinner. She has dressing to right calf, C/D/I. Barrier cream applied to wounds on buttocks. Up to bathroom with SBA.
[2023-10-27] MEDS: NYSTATIN POWDER 1 APPLIC TOPICAL (20:32)
[2023-10-27] MEDS: ACETAMINOPHEN 325 MG TABLET PO (21:57)
[2023-10-27] MEDS: MELATONIN 3 MG TABLET PO (21:57)
[2023-10-27] MEDS: hydrOXYzine pamoate 25 MG CAPSULE PO (21:58)
[2023-10-28] VITALS (11 sets, daily range): BP systolic 114–153; BP diastolic 66–75; PULSE 80–116; RESP 18–20; TEMP 36.6–37.3; O2SAT 90–94
[2023-10-28] MEDS: 0.9 % SODIUM CH + KCL 20 mEq/L 1,000 ML 125 ML IV ×3 (04:09→19:38)
[2023-10-28 06:22] LABS: HCO3 VBG 20 mmol/L (21-28); PCO2 VBG 40 mmHG (40-50); PO2 VBG 39.9 mmHG (25-47); pH VBG 7.317 (7.32-7.43)
[2023-10-28] MEDS: ACETAMINOPHEN 325 MG TABLET PO ×3 (06:39→21:32)
[2023-10-28] MEDS: OMEPRAZOLE 20 MG CAPSULE DR 40 MG PO (06:40)
[2023-10-28] MEDS: LEVOTHYROXINE 125 MCG TABLET PO (06:41)
[2023-10-28 06:42] LABS: Basophils Absolute Auto 0.03 K/uL (0.00-0.30); Basophils Percent Auto 0.4 % (0.0-3.0); Eosinophils Absolute Auto 0.12 K/uL (0.00-0.50); Eosinophils Percent Auto 1.4 % (0.0-7.0); Hematocrit 29.5 % (33.0-51.0); Hemoglobin* 8.8 gm/dL (12.0-16.0); Immature Granulocytes Abs Auto 0.09 K/uL (0.00-0.30); Immature Granulocytes Pct Auto 1.1 %; Lymphocytes Percent Auto 8.1 % (20-44); Mean Corpuscular HGB Conc 30 gm/dL (32-36); Mean Corpuscular Hemoglobin 20 pg (26-34); Mean Corpuscular Volume 68 fL (80-100); Monocytes Percent Auto 8.1 % (0.0-11.0); Neutrophils Percent Auto 80.9 % (42.0-72.0); Platelet Count* 328 K/uL (140-440); RDW Coefficient of Variation % 22.2 % (11.5-15.5); Red Blood Count 4.35 m/uL (4.00-5.20); White Blood Count* 8.42 K/uL (4.50-11.00)
[2023-10-28 06:47] LABS: Slide Review Reflex Yes
[2023-10-28 06:48] LABS: Slide Review Acceptable Review (Acceptable)
[2023-10-28 06:52] LABS: Albumin* 3.3 g/dL (3.3-5.0); Chloride* 108 mmol/L (96-114); Sodium* 136 mmol/L (135-149)
[2023-10-28 06:53] LABS: Potassium* 3.7 mmol/L (3.6-5.1)
[2023-10-28 06:55] LABS: Creatinine* 0.7 mg/dL (0.5-1.5); Est. Creatinine Clearance* 42.32; Estimated Glomerular Filt Rate 96 ml/min
--- NOTE | 2023-10-28 06:55 | PC.NURSE ---
Shift note: Pt is doing well ambulating with SBA. Alert and oriented. IVAN wrap on both legs and ABD to the right leg changed. Pt had adequate sleep. Pt complained of headache and increase pain to the knee at 0630. Tylenol given. No diarrhea tonight. Vitally stable.
[2023-10-28 06:56] LABS: Alanine Aminotransferase* 21 U/L (4-35); Alkaline Phosphatase* 92 U/L (40-150); Anion Gap 8 mEq/L (7-15); Aspartate Amino Transferase* 28 U/L (12-35); Bilirubin Total* 0.5 mg/dL (0.1-1.5); Blood Urea Nitrogen* 11 mg/dL (7-30); Calcium* 8.2 mg/dL (8.4-10.6); Carbon Dioxide* 20 mmol/L (20-32); Glucose* 72 mg/dL (60-115)
[2023-10-28 07:08] LABS: C Reactive Protein* < 0.5 mg/dL (0.5-1.0); NT Pro B Type NatriureticPept* 1150 pg/mL
[2023-10-28] MEDS: BUSPIRONE 10 MG TABLET PO ×2 (09:39→21:30)
[2023-10-28] MEDS: CITALOPRAM HYDROBROMIDE 20 MG TABLET 30 MG PO (09:39)
[2023-10-28] MEDS: SODIUM CHLORIDE 0.9 % (FLUSH) 10 ML SYRINGE 5 ML IVF (09:41)
[2023-10-28] MEDS: NYSTATIN POWDER 1 APPLIC TOPICAL ×2 (09:42→21:31)
[2023-10-28] MEDS: NYSTATIN CREAM 30 GM 1 APPLIC TOPICAL ×2 (09:42→21:32)
--- NOTE | 2023-10-28 10:20 | P.IMPN_ITS ---
Progress Note: A&P Assessment and plan (1) AGE (acute gastroenteritis): Problem details: Initially gastroenteritis was thought to be the cause of her current symptoms. With her other personal and family history I am concerned that she may have some other process going on in her abdomen. Her exam is very benign today. I think the 1st step would be upper and lower endoscopy to evaluate for source of bleeding and the cause of her iron deficiency anemia. Possibly imaging with CT would be beneficial as well. Will pursue that if ongoing diarrhea. Stool studies are pending. Status: Acute (2) Atrial fibrillation with RVR: Problem details: New diagnosis. Clinically it sounds like she has had AFib RVR for a couple of weeks. Back in normal sinus rhythm. Corrected electrolytes. Echocardiogram now shows bilateral atrial enlargement with normal left ventricular function. No marked valvular disease. Some pulmonary hypertension. Until her iron deficiency anemia and GI bleeding have been worked up I am inclined not to pursue anticoagulation for atrial fibrillation. Status: Acute (3) Iron deficiency anemia: Problem details: This is a longstanding problem. She has some small bright red blood per rectum intermittently. Needs EGD and colonoscopy. Iron replacement. Status: Acute (4) Hypokalemia: Problem details: Presumably secondary to diarrhea. Continue to replace and monitor Status: Acute (5) Hypothyroidism: Problem details: TSH suppressed. T4 elevated. Reduce home levothyroxine replacement from 150- 125 mcg per day Status: Acute (6) Neurofibromatosis, type I (von Recklinghausen's disease): Problem details: There is also a family history of Graf disease. Status: Acute (7) Chronic stasis dermatitis: Problem details: In combination with moderate to severe lymphedema. Has a wound care nurse twice a week. Currently in stable condition. Topical Vaseline with compression currently. P.r.n. bacitracin. Status: Acute (8) Lymphedema: Problem details: Moderate to severe. Compression and elevation. Status: Acute (9) Asthma: Problem details: History of smoking. Quit 25 years ago. Uses DuoNebs p.r.n.. Status: Acute (10) Chronic anxiety: Problem details: BusPar b.i.d. Status: Acute (11) ANGELO (obstructive sleep apnea): Problem details: Noncompliant with CPAP. Needs outpatient sleep study. Status: Acute (12) Morbid obesity: Problem details: BMI 54 Status: Acute Plan Continue in hospital for evaluation monitoring of chronic problems. Will obtain CT of chest abdomen pelvis today. Plan for EGD and colonoscopy on Monday if possible. Continue to manage gastrointestinal illness symptoms and investigate underlying causes. Continue to dress heart disease, atrial fibrillation and dyspnea/heart failure. Time Spent With Patient Total time spent: Total time spent today is 60 minutes, 40 minutes in coordination of care discussing with patient and other providers ongoing evaluation management of iron deficiency anemia, GI bleeding, heart failure, gastroenteritis. Subjective Date Seen: 10/28/23 Interval history: HPI: This is a 63 year female with a significant past medical history of neurofibromatosis, morbid obesity, chronic lymphedema chronic anxiety who reports 2 weeks of worsening gastroenteritis type symptoms. She said it started with diarrhea that was coming once or twice a day. This has accelerated in both urgency, frequency in the last 3-4 days. She has not been able to eat a solid meal since 5 days prior to admission. She was also vomiting last night. She reports no fever, no abdominal pain. She reports some bloody stools thinks that is because she has irritated hemorrhoids or sores on her bottom. Increasing dizziness and elevated heart rate noted as well this week. She has a home health nurse who comes twice a week to noted elevated heart rate over the last 10 days. She urged Maggy to be seen, Jaye in declined until this morning she came in by EMS. In the emergency room she was noted to be tachycardic with a heart rate in the 140s. She was in atrial fibrillation. On arrival to the floor she converted back to normal sinus rhythm and has been back in sinus rhythm since yesterday. Her blood pressures have been in the normal range other than 1 outlier of 100/65. She has not been known to have atrial fibrillation or any cardiac disease in the past. She was also noted to have significant hypokalemia and a significant iron deficiency microcytic anemia. She is not diabetic. She has a BMI of 54. She has chronic neurofibromatosis. She has chronic hypothyroidism and anxiety. She has chronic lymphedema. Echocardiogram obtained today shows on preliminary report a normal left ventricle with bilateral atrial enlargement no marked valvular disease and increased pulmonary pressure of 42 mmHg. Here she has had compression wraps on her legs. She does not have open wounds on her legs at this time. She is scheduled for a colonoscopy in the 1st week of November. She has also had previous colonoscopies. I have recommended that she also get upper endoscopy at that time to evaluate her iron deficiency anemia. She tells me her family has Graf syndrome. From talking to her it is unclear who has the diagnosis in her family. She has never been told that she has Radha syndrome however. She tells me she is not tolerating p.o. food and fluid. Her diarrhea was better overnight but today she ate a little bit and the diarrhea is worse again. Exam Narrative: Exam Narrative: She is alert and appears in no distress. She gives her own history. Eyes normal. Oropharynx with small airway. Respirations are clear to auscultation. Cardiovascular: S1, S2, irregular rhythm. Abdomen is soft without tenderness or mass. Extremities with moderate bilateral edema with compression wraps over both legs. Skin changes consistent with neurofibromatosis. Const: Vital Signs, click to edit/add: Vital Signs - 24 hr 10/27/23 10:58 10/27/23 10:58 10/27/23 10:58 Temperature 98.7 F Pulse Rate Pulse Rate [Pulse Oximeter] 94 Respiratory Rate 20 20 Blood Pressure [Le ft Arm] 141/80 H Blood Pressure [Ri ght Arm] Pulse Oximetry 92 94 94 Oxygen Delivery Me thod Nasal Cannula Room Air Room Air Oxygen Flow Rate 2 10/27/23 11:07 10/27/23 11:07 10/27/23 11:07 Temperature 98.8 F Pulse Rate 91 Pulse Rate [Pulse Oximeter] 83 Respiratory Rate 20 20 Blood Pressure [Le ft Arm] 122/71 Blood Pressure [Ri ght Arm] Pulse Oximetry 94 91 Oxygen Delivery Me thod Room Air Room Air Oxygen Flow Rate 10/27/23 12:30 10/27/23 16:13 10/27/23 16:23 Temperature 98.9 F 97.9 F Pulse Rate 89 Pulse Rate [Pulse Oximeter] 82 88 Respiratory Rate 18 20 Blood Pressure [Le ft Arm] 136/76 Blood Pressure [Ri ght Arm] 142/74 H Pulse Oximetry 93 91 Oxygen Delivery Me thod Room Air Room Air Oxygen Flow Rate 10/27/23 20:29 10/27/23 23:00 10/27/23 23:19 Temperature 98.7 F 98.1 F Pulse Rate Pulse Rate [Pulse Oximeter] 93 92 92 Respiratory Rate 20 20 20 Blood Pressure [Le ft Arm] 142/70 H 143/83 H Blood Pressure [Ri ght Arm] Pulse Oximetry 93 94 Oxygen Delivery Me thod Room Air Room Air Oxygen Flow Rate 10/28/23 00:23 10/28/23 03:00 10/28/23 08:13 Temperature 99 F Pulse Rate 89 100 Pulse Rate [Pulse Oximeter] 100 Respiratory Rate 20 Blood Pressure [Le ft Arm] Blood Pressure [Ri ght Arm] 151/75 H Pulse Oximetry 94 Oxygen Delivery Me thod Room Air Oxygen Flow Rate 2 10/28/23 08:20 Temperature 98.4 F Pulse Rate Pulse Rate [Pulse Oximeter] 100 Respiratory Rate 20 Blood Pressure [Le ft Arm] Blood Pressure [Ri ght Arm] 132/68 Pulse Oximetry 94 Oxygen Delivery Me thod Room Air Oxygen Flow Rate Labs Labs: Laboratory Results - last 24 hr 10/27/23 10/27/23 10/27/23 07:41 10:40 11:02 WBC RBC Hgb Hct MCV MCH MCHC RDW Coeff of Lynn Plt Count Neut % (Auto) Lymph % (Auto) [place] % (Auto) Eos % (Auto) Baso % (Auto) Neut # (Auto) Lymph # (Auto) [place] # (Auto) Eos # (Auto) Baso # (Auto) Abs Immat Gran (auto) Imm/Tot Granulo (auto) Diff Slide Review VBG pH 7.383 VBG pCO2 36 L VBG pO2 39.2 VBG HCO3 22 Sodium Potassium Chloride Carbon Dioxide Anion Gap BUN Creatinine Estimated Creat Clear Estimated GFR Glucose Hemoglobin A1c 4.9 Calcium Iron 20 L TIBC 330 % Saturation 6 L Total Bilirubin AST ALT Alkaline Phosphatase Troponin I 0.02 C-Reactive Protein < 0.5 L NT-Pro-B Natriuret Pep Total Protein Albumin Procalcitonin 27.30 H Free T4 3.40 H Stool Occult Blood Stl C. diff Tox B Gene Stl C. diff [id number]-NAP1-[id number] Lab Acknowledgement Test Added 10/27/23 10/27/23 10/27/23 11:30 14:09 17:55 WBC 8.42 RBC 4.38 Hgb 9.0 L Hct 29.4 L MCV 67 L MCH 21 L MCHC 31 L RDW Coeff of Lynn 22.2 H Plt Count 277 Neut % (Auto) 83.0 H Lymph % (Auto) 7.4 L [place] % (Auto) 8.2 Eos % (Auto) 0.7 Baso % (Auto) 0.2 Neut # (Auto) 7.00 Lymph # (Auto) 0.60 L [place] # (Auto) 0.70 Eos # (Auto) 0.06 Baso # (Auto) 0.02 Abs Immat Gran (auto) 0.04 Imm/Tot Granulo (auto) 0.5 Diff Slide Review VBG pH VBG pCO2 VBG pO2 VBG HCO3 Sodium 135 Potassium 3.5 L Chloride 108 Carbon Dioxide 17 L Anion Gap 10 BUN 12 Creatinine 0.7 Estimated Creat Clear 42.32 Estimated GFR 96 Glucose 92 Hemoglobin A1c Calcium 8.5 Iron TIBC % Saturation Total Bilirubin AST ALT Alkaline Phosphatase Troponin I C-Reactive Protein NT-Pro-B Natriuret Pep Total Protein Albumin Procalcitonin Free T4 Stool Occult Blood Stl C. diff Tox B Gene Stl C. diff [id number]-[id number] Lab Acknowledgement Test Added Test Added 10/27/23 10/28/23 Unknown 06:05 WBC 8.42 RBC 4.35 Hgb 8.8 L Hct 29.5 L MCV 68 L MCH 20 L MCHC 30 L RDW Coeff of Lynn 22.2 H Plt Count 328 Neut % (Auto) 80.9 H Lymph % (Auto) 8.1 L [place] % (Auto) 8.1 Eos % (Auto) 1.4 Baso % (Auto) 0.4 Neut # (Auto) 6.80 Lymph # (Auto) 0.70 L [place] # (Auto) 0.70 Eos # (Auto) 0.12 Baso # (Auto) 0.03 Abs Immat Gran (auto) 0.09 Imm/Tot Granulo (auto) 1.1 Diff Slide Review Acceptable Review VBG pH 7.317 L VBG pCO2 40 VBG pO2 39.9 VBG HCO3 20 L Sodium 136 Potassium 3.7 Chloride 108 Carbon Dioxide 20 Anion Gap 8 BUN 11 Creatinine 0.7 Estimated Creat Clear 42.32 Estimated GFR 96 Glucose 72 Hemoglobin A1c Calcium 8.2 L Iron TIBC % Saturation Total Bilirubin 0.5 AST 28 ALT 21 Alkaline Phosphatase 92 Troponin I C-Reactive Protein < 0.5 L NT-Pro-B Natriuret Pep 1150 Total Protein 6.0 Albumin 3.3 Procalcitonin 28.50 H Free T4 Stool Occult Blood Positive A Stl C. diff Tox B Gene Negative Stl C. diff [id number] PRESUMPTIVE NEGATIVE Lab Acknowledgement
--- NOTE | 2023-10-28 10:41 | CT_ITS ---
Patient: ELIZ LAYTON Facility:?[facility] Patient ID:?[id number] Site Patient ID:?[id number]. Site :?[id number] Study:?CT-Chest/Abd/Pelvis w/ 141cc [id number] 11:43:53 AM Ordering Physician:Jeremy Kennedy Final Report: INDICATION: Dyspnea, vomiting and diarrhea, iron-deficiency anemia TECHNIQUE: CT chest, abdomen and pelvis acquired with 141 mL Isovue 370 IV contrast. COMPARISON: None. FINDINGS: CHEST: Cardiovascular structures: Heart size is normal. Thoracic aorta and main pulmonary artery are normal in caliber. Mediastinum and karina: No mass or adenopathy. Lungs and pleura: Mild emphysema. No suspicious nodules, infiltrates, or effusions. Chest wall and axilla: Numerous skin nodules in the anterior chest and abdomen. No axillary adenopathy. Bones: No suspicious bone lesions. Unremarkable for age. ABDOMEN AND PELVIS: Liver: Unremarkable. Gallbladder and bile ducts: Cholelithiasis. No biliary dilation. Pancreas: Unremarkable. Spleen: Unremarkable. Adrenal glands: Unremarkable. Kidneys: Markedly atrophic and partially calcified left kidney. Right kidney appears normal. GI tract: Colonic diverticulosis without diverticulitis. No obstruction. Mural fat stratification in the right-side of the colon can be seen with chronic inflammation but is nonspecific. Vascular structures: Unremarkable. Lymph nodes: Mild bilateral iliac chain adenopathy with nodes measuring up to 1.4 cm in short axis diameter. See for example right external iliac/pelvic sidewall node on image 117 of series 7. Miscellaneous: Fat containing umbilical hernia. Multiple skin nodules in the abdominal wall. No free air or significant free fluid. Pelvic Organs: Unremarkable. Bones: No suspicious bone lesions. Unremarkable for age. IMPRESSION: 1. No acute findings. 2. Cholelithiasis. 3. Mild emphysema. 4. Mild pelvic adenopathy, nonspecific. 5. Atrophic left kidney. Please note that all CT scans at this facility use dose modulation, iterative reconstruction, and/or weight-based dosing when appropriate to reduce radiation dose to as low as reasonably achievable. Dictated by Moy Parrish MD @ 10/28/2023 12:08:51 PM Signed by:?Moy Parrish MD @10/28/2023 12:08:51 PM (Electronic Signature)
[2023-10-28] MEDS: LOPERAMIDE HCL 2 MG CAPSULE PO (14:20)
--- NOTE | 2023-10-28 17:25 | PC.NURSE ---
Shift Summary: Patient pleasant and cooperative, at times needs encouragement to be independent in cares. SBA due to IV pole and some difficulty getting in and out of bed. Denies pain. Dressing over bilat lower extremities changed, dressing not saturated, some small open areas however not bleeding, vaseline applied prior to redressing. Vitals stable and WNL. Patient becomes tachy with ambulation. Clear liquid diet in preparation for scopes on monday.
[2023-10-28] MEDS: METOPROLOL TARTRATE 25 MG TABLET PO (19:58)
[2023-10-29] VITALS (12 sets, daily range): BP systolic 116–147; BP diastolic 65–85; PULSE 75–95; RESP 18; TEMP 36.6–37.1; O2SAT 92–95
[2023-10-29] MEDS: 0.9 % SODIUM CH + KCL 20 mEq/L 1,000 ML 125 ML IV ×3 (03:28→19:05)
[2023-10-29] MEDS: OMEPRAZOLE 20 MG CAPSULE DR 40 MG PO (06:09)
[2023-10-29] MEDS: LEVOTHYROXINE 125 MCG TABLET PO (06:09)
--- NOTE | 2023-10-29 06:28 | PC.NURSE ---
End of shift note [id number]: Pt noted to be alert & oriented x 4 and able to make needs known. She transfers/ambulates with SBA in room using IV pole. Wound care completed to bilateral lower extremities last evening with no drainage observed to old ABD dressings upon removal. Pulse noted to be 116 at start of shift. PRN Metoprolol was then given which was effective upon follow up as pulse decreased to 83. Heart rate noted to be WNL for remainder of shift. Pt noted to be afebrile. IV to L hand patent with IV fluid running per current order in place. Pt currently on CL diet for upcoming EGD/Colonoscopy procedures planned for 10/30/23. PRN Tylenol given last evening for c/o ?02/06? bilateral knee pain per pt report. PRN effective upon followup with pt denying pain when asked the remainder of the shift. Pt remains on telemetry with NSR noted this shift. She has been continent of bowel and bladder throughout the shift. Barrier cream applied to open neurofibromatosis areas to bilateral buttocks. ?
[2023-10-29 07:27] LABS: Lab Add On Test New Spec Needed
[2023-10-29 08:01] LABS: Magnesium* 1.6 mg/dL (1.5-2.6)
[2023-10-29] MEDS: CITALOPRAM HYDROBROMIDE 20 MG TABLET 30 MG PO (08:54)
[2023-10-29] MEDS: BUSPIRONE 10 MG TABLET PO ×2 (08:54→20:20)
[2023-10-29] MEDS: METOPROLOL TARTRATE 25 MG TABLET PO ×2 (08:54→20:21)
[2023-10-29] MEDS: ACETAMINOPHEN 325 MG TABLET PO ×2 (08:54→20:21)
[2023-10-29] MEDS: NYSTATIN POWDER 1 APPLIC TOPICAL ×2 (08:55→20:16)
[2023-10-29] MEDS: NYSTATIN CREAM 30 GM 1 APPLIC TOPICAL ×3 (08:55→20:16)
[2023-10-29] MEDS: SODIUM CHLORIDE 0.9 % (FLUSH) 10 ML SYRINGE 5 ML IVF (08:57)
[2023-10-29] MEDS: bisacodyL 5 MG TABLET DR 10 MG PO (11:26)
--- NOTE | 2023-10-29 12:31 | P.IMPN_ITS ---
Progress Note: A&P Assessment and plan (1) AGE (acute gastroenteritis): Problem details: Initially gastroenteritis was thought to be the cause of her current symptoms. With her other personal and family history I am concerned that she may have some other process going on in her abdomen. Her exam is very benign today. CT abdomen shows no acute findings. Next steps: upper and lower endoscopy to evaluate for source of bleeding and the cause of her iron deficiency anemia. Plan for tomorrow. Stool studies pending Status: Acute (2) Atrial fibrillation with RVR: Problem details: New diagnosis. Recurrent last night. Clinically it sounds like she has had AFib RVR for a couple of weeks. Back in normal sinus rhythm. Corrected electrolytes. TSH suppressed and free T4 elevated. Reduce levothyroxine dose. Echocardiogram now shows bilateral atrial enlargement with normal left ventricular function. No marked valvular disease. Some pulmonary hypertension. Until her iron deficiency anemia and GI bleeding have been evaluated I am inclined not to pursue anticoagulation for atrial fibrillation. Recommend anticoagulation if no apparent source of bleeding Status: Acute (3) Iron deficiency anemia: Problem details: This is a longstanding problem. She has some small bright red blood per rectum intermittently. Needs EGD and colonoscopy. Iron replacement. Status: Acute (4) Hypokalemia: Problem details: Presumably secondary to diarrhea. Continue to replace and monitor Status: Acute (5) Hypothyroidism: Problem details: TSH suppressed. T4 elevated. Reduce home levothyroxine replacement from 150- 125 mcg per day Status: Acute (6) Neurofibromatosis, type I (von Recklinghausen's disease): Problem details: There is also a family history of Graf disease. Status: Acute (7) Chronic stasis dermatitis: Problem details: In combination with moderate to severe lymphedema. Has a wound care nurse twice a week. Currently in stable condition. Topical Vaseline with compression currently. P.r.n. bacitracin. Status: Acute (8) Lymphedema: Problem details: Moderate to severe. Compression and elevation. Status: Acute (9) Asthma: Problem details: History of smoking. Quit 25 years ago. Uses DuoNebs p.r.n.. CT shows changes consistent with COPD Status: Acute (10) Chronic anxiety: Problem details: BusPar b.i.d. Status: Acute (11) ANGELO (obstructive sleep apnea): Problem details: Noncompliant with CPAP. Needs outpatient sleep study. Status: Acute (12) Morbid obesity: Problem details: BMI 54 Status: Acute Plan Continue in hospital for ongoing evaluation of anemia/GI bleed/vomiting and diarrhea with upper and lower endoscopy. Probable discharge to home after that depending on findings and clinical course Time Spent With Patient Total time spent: Total time spent today is 55 minutes, 35 minutes in coordination of care and discussing with patient other providers management of GI symptoms, iron deficiency anemia, AFib with RVR Subjective Date Seen: 10/29/23 Interval history: HPI: This is a 63 year female with a significant past medical history of neurofibromatosis, morbid obesity, chronic lymphedema chronic anxiety who reports 2 weeks of worsening gastroenteritis type symptoms. She said it started with diarrhea that was coming once or twice a day. This has accelerated in both urgency, frequency in the last 3-4 days. She has not been able to eat a solid meal since 5 days prior to admission. She was also vomiting last night. She reports no fever, no abdominal pain. She reports some bloody stools thinks that is because she has irritated hemorrhoids or sores on her bottom. Increasing dizziness and elevated heart rate noted as well this week. She has a home health nurse who comes twice a week to noted elevated heart rate over the last 10 days. She urged Maggy to be seen, Jaye in declined until this morning she came in by EMS. In the emergency room she was noted to be tachycardic with a heart rate in the 140s. She was in atrial fibrillation. On arrival to the floor she converted back to normal sinus rhythm and has been back in sinus rhythm since yesterday. Her blood pressures have been in the normal range other than 1 outlier of 100/65. She has not been known to have atrial fibrillation or any cardiac disease in the past. She was also noted to have significant hypokalemia and a significant iron deficiency microcytic anemia. She is not diabetic. She has a BMI of 54. She has chronic neurofibromatosis. She has chronic hypothyroidism and anxiety. She has chronic lymphedema. Echocardiogram obtained today shows on preliminary report a normal left ventricle with bilateral atrial enlargement no marked valvular disease and increased pulmonary pressure of 42 mmHg. Here she has had compression wraps on her legs. She does not have open wounds on her legs at this time. She is scheduled for a colonoscopy in the 1st week of November. She has also had previous colonoscopies. I have recommended that she also get upper endoscopy at that time to evaluate her iron deficiency anemia. She tells me her family has Graf syndrome. From talking to her it is unclear who has the diagnosis in her family. She has never been told that she has Radha syndrome however. October 27: She tells me she is not tolerating p.o. food and fluid. Her diarrhea was better overnight but today she ate a little bit and the diarrhea is worse again. CT chest abdomen pelvis showed: IMPRESSION: 1. No acute findings. 2. Cholelithiasis. 3. Mild emphysema. 4. Mild pelvic adenopathy, nonspecific. 5. Atrophic left kidney. October 28: Tolerating p.o. fluids. Diarrhea is better. Now starting prep for colonoscopy. Last night had recurrent self-limited episodes of atrial fibrillation with RVR. Started on metoprolol. Exam Narrative: Exam Narrative: She is alert and appears in no distress. Respirations are clear to auscultation. Cardiovascular: S1, S2, regular rate and rhythm. Abdomen is soft without tenderness or mass. Lower extremities noted bowl for bilateral venous stasis skin changes. She has superficial small ulcers over her mid shins bilaterally that are oozing serosanguineous fluid. No significant erythema. Moderate edema above the compression wraps in her knees and thighs Const: Vital Signs, click to edit/add: Vital Signs - 24 hr 10/28/23 15:03 10/28/23 16:11 10/28/23 19:41 Temperature 99.2 F 99.1 F Pulse Rate 111 H Pulse Rate [Pulse Oximeter] 111 H 116 H Respiratory Rate 20 18 Blood Pressure [Ri ght Arm] 153/70 H 144/72 H Pulse Oximetry 91 94 Oxygen Delivery Me thod Room Air Room Air Oxygen Flow Rate 10/28/23 22:39 10/28/23 23:02 10/28/23 23:31 Temperature 99.0 F Pulse Rate 80 Pulse Rate [Pulse Oximeter] 116 H 90 Respiratory Rate 18 18 Blood Pressure [Ri ght Arm] 114/66 Pulse Oximetry 93 Oxygen Delivery Me thod Room Air Oxygen Flow Rate 10/29/23 03:19 10/29/23 07:21 10/29/23 07:35 Temperature 98.1 F Pulse Rate 82 Pulse Rate [Pulse Oximeter] 91 94 Respiratory Rate 18 18 Blood Pressure [Ri ght Arm] 132/85 Pulse Oximetry 94 Oxygen Delivery Me thod Room Air Oxygen Flow Rate 10/29/23 08:02 10/29/23 11:58 Temperature 97.9 F 98.0 F Pulse Rate Pulse Rate [Pulse Oximeter] 94 80 Respiratory Rate 18 18 Blood Pressure [[facility] Arm] 147/80 H 129/70 Pulse Oximetry 93 94 Oxygen Delivery Me thod Room Air Room Air Oxygen Flow Rate 2 Documenting provider has reviewed patient's vital signs: yes Labs Labs: Laboratory Results - last 24 hr 10/29/23 10/29/23 07:24 07:34 Magnesium 1.6 Lab Acknowledgement New Spec Needed
[2023-10-29] MEDS: PEG-3350 SODIUM CL/BICARB-KCL 4,000 ML SOLN 4000 ML PO (14:20)
--- NOTE | 2023-10-29 17:34 | PC.NURSE ---
End of shift pt is pleasant. she likes to talk and wants things done her way. she is alert x4. knee pain and she got po Tylenol. SBA in room using IV pole. dressing change was done, to bilateral lower extremities . IV is patent to the L hand. Colon perp was start she is almost done @ 1730 3 glasses left. she is sitting on the BSC. Clear Liquid diet, telemetry shows SA and 1 st degree HB this shift. She has been continent of bowel and bladder, she does have a brief on. . Barrier cream, nystatin cream applied.
[2023-10-29] MEDS: MAGNESIUM CITRATE 300 ML SOLUTION PO (23:25)
[2023-10-30] MEDS: 0.9 % SODIUM CH + KCL 20 mEq/L 1,000 ML 125 ML IV (02:19)
[2023-10-30 03:00] VITALS: BP 125/63; PULSE 83; RESP 18; TEMP 37.1; O2SAT 95
[2023-10-30 06:10] LABS: Basophils Absolute Auto 0.04 K/uL (0.00-0.30); Basophils Percent Auto 0.5 % (0.0-3.0); Eosinophils Absolute Auto 0.14 K/uL (0.00-0.50); Eosinophils Percent Auto 1.9 % (0.0-7.0); Hematocrit 27.9 % (33.0-51.0); Hemoglobin* 8.2 gm/dL (12.0-16.0); Immature Granulocytes Abs Auto 0.12 K/uL (0.00-0.30); Immature Granulocytes Pct Auto 1.6 %; Lymphocytes Percent Auto 9.6 % (20-44); Mean Corpuscular HGB Conc 29 gm/dL (32-36); Mean Corpuscular Hemoglobin 20 pg (26-34); Mean Corpuscular Volume 70 fL (80-100); Monocytes Percent Auto 11.1 % (0.0-11.0); Neutrophils Percent Auto 75.3 % (42.0-72.0); Platelet Count* 248 K/uL (140-440); Red Blood Count 4.01 m/uL (4.00-5.20); White Blood Count* 7.39 K/uL (4.50-11.00)
[2023-10-30 06:30] LABS: Chloride* 113 mmol/L (96-114); Potassium* 3.9 mmol/L (3.6-5.1); Sodium* 139 mmol/L (135-149)
[2023-10-30 06:33] LABS: Anion Gap 4 mEq/L (7-15); Blood Urea Nitrogen* 7 mg/dL (7-30); Carbon Dioxide* 22 mmol/L (20-32); Creatinine* 0.6 mg/dL (0.5-1.5); Est. Creatinine Clearance* 42.32; Estimated Glomerular Filt Rate 100 ml/min; Glucose* 97 mg/dL (60-115)
--- NOTE | 2023-10-30 06:33 | PC.NURSE ---
End of shift note [id number]: Pt remains alert & oriented x 4. NPO diet order in place as pt has EGD and colonoscopy procedures scheduled for today (10/30/23). Pt remains on telemetry with sinus arrhythmia noted. Pt transfers/ambulates in room with SBA using IV pole. Pt reports dry intermittent cough when asked, stating that this is not uncommon for her to have due to hx of asthma. She also stated, ?Sometimes a little clear phlegm comes up?. Wound care completed to bilateral lower extremities with no drainage observed to old ABD dressings upon removal. Nystatin powder and cream applied under bilateral breast and groin folds after washing and patting dry. Pt has been continent of bowel and bladder this shift. She received bowel prep yesterday along with PRN Magnesium Citrate last evening per MD Mcneil. Pt's stool noted to be clear in consistency with slight yellow/green color present. Pt?s weight noted to be increased 10 pounds since yesterday though lung sounds are noted to be clear to all lobes bilaterally and pt has no new areas of edema. Pt also remains on ordered fluids at 125 mL/hr. soap chipper updated. VSS and pt has been afebrile throughout the shift. Two episodes of bright red blood noted in toileting (coming from rectum) though this is not a new finding with pt per hx and pt reports, ?I usually have blood when I have diarrhea?. IV in L hand patent.
[2023-10-30 06:51] LABS: Slide Review Acceptable Review (Acceptable); Slide Review Reflex Yes
[2023-10-30 07:00] VITALS: BP 136/75; PULSE 89; RESP 22; TEMP 37.2; O2SAT 92
[2023-10-30 08:00] VITALS: PULSE 81
--- NOTE | 2023-10-30 09:56 | W.ANESCHARGE ---
Anesthesia Charges Start Date/Time Anesthesia Start Date: 10/30/23 Anesthesia Start Time: 09:00 Stop Date/Time Anesthesia Stop Date: 10/30/23 Anesthesia Stop Time: 09:45
[2023-10-30] MEDS: SODIUM CHLORIDE 0.9 % (FLUSH) 10 ML SYRINGE 5 ML IVF (10:28)
[2023-10-30] MEDS: CITALOPRAM HYDROBROMIDE 20 MG TABLET 30 MG PO (10:28)
[2023-10-30] MEDS: BUSPIRONE 10 MG TABLET PO (10:29)
[2023-10-30] MEDS: METOPROLOL TARTRATE 25 MG TABLET PO (10:29)
[2023-10-30 11:00] VITALS: BP 133/65; PULSE 90; RESP 20; TEMP 36.9; O2SAT 93
--- NOTE | 2023-10-30 12:21 | PM.DS1 ---
DS: Providers Provider Date Seen: 10/30/23 Date of admission: 10/27/23 11:07 Primary care physician: Kylah Beltran MD Admitting Clinician: Gayathri Kennedy MD Attending Physician on discharge: Saul Ash MD Date of Discharge: 10/30/23 DS: Diagnosis Discharge Diagnosis (1) AGE (acute gastroenteritis): Status: Acute Problem details: Initially gastroenteritis was thought to be the cause of her current symptoms. With her other personal and family history I am concerned that she may have some other process going on in her abdomen. Her exam is very benign today. CT abdomen shows no acute findings. Upper and lower endoscopy unremarkable except for possible bleeding hemorrhoid. Symptoms largely resolved (2) Atrial fibrillation with RVR: Status: Acute Problem details: Occurred on admission and 1 further episode during hospital stay. Clinically it sounds like she may have had AFib RVR for a couple of weeks. Back in normal sinus rhythm. Corrected electrolytes. TSH suppressed and free T4 elevated. Reduce levothyroxine dose. Echocardiogram now shows bilateral atrial enlargement with normal left ventricular function. No marked valvular disease. Some pulmonary hypertension. Until her iron deficiency anemia and GI bleeding have been evaluated I am inclined not to pursue anticoagulation for atrial fibrillation. Consider outpatient cardiac monitoring to see if atrial fibrillation persists despite her thyroid being corrected and her electrolytes being corrected and her illness resolving. Recommend anticoagulation if no apparent source of bleeding and ongoing evidence of AFib (3) Iron deficiency anemia: Status: Acute Problem details: This is a longstanding problem. She has some small bright red blood per rectum intermittently. EGD and colonoscopy were unremarkable except for bleeding hemorrhoid. Start iron replacement. (4) Hypokalemia: Status: Acute Problem details: Presumably secondary to diarrhea. Continue to replace and monitor (5) Hypothyroidism: Status: Acute Problem details: TSH suppressed. T4 elevated. Reduce home levothyroxine replacement from 150 mcg 7 days a week to 150 mcg 6 days a week. Recheck TSH in 6-8 weeks (6) Neurofibromatosis, type I (von Recklinghausen's disease): Status: Acute Problem details: There is also a family history of Graf disease. (7) Chronic stasis dermatitis: Status: Acute Problem details: In combination with moderate to severe lymphedema. Has a wound care nurse twice a week. Currently in stable condition. Topical Vaseline with compression currently. P.r.n. bacitracin. (8) Lymphedema: Status: Acute Problem details: Moderate to severe. Compression and elevation. Continue routine compression and dressing changes and nursing care at home (9) Asthma: Status: Acute Problem details: History of smoking. Quit 25 years ago. Uses DuoNebs p.r.n.. CT shows changes consistent with COPD (10) Chronic anxiety: Status: Acute Problem details: BusPar b.i.d. (11) ANGELO (obstructive sleep apnea): Status: Acute Problem details: Noncompliant with CPAP. Needs outpatient sleep study. (12) Morbid obesity: Status: Acute Problem details: BMI 54 DS: Summary Hospital Course Hospital Course: HPI: This is a 63 year female with a significant past medical history of neurofibromatosis, morbid obesity, chronic lymphedema chronic anxiety who reports 2 weeks of worsening gastroenteritis type symptoms. She said it started with diarrhea that was coming once or twice a day. This has accelerated in both urgency, frequency in the last 3-4 days. She has not been able to eat a solid meal since 5 days prior to admission. She was also vomiting last night. She reports no fever, no abdominal pain. She reports some bloody stools thinks that is because she has irritated hemorrhoids or sores on her bottom. Increasing dizziness and elevated heart rate noted as well this week. She has a home health nurse who comes twice a week to noted elevated heart rate over the last 10 days. She urged Maggy to be seen, Jaye in declined until this morning she came in by EMS. In the emergency room she was noted to be tachycardic with a heart rate in the 140s. She was in atrial fibrillation. On arrival to the floor she converted back to normal sinus rhythm and has been back in sinus rhythm since yesterday. Her blood pressures have been in the normal range other than 1 outlier of 100/65. She has not been known to have atrial fibrillation or any cardiac disease in the past. She was also noted to have significant hypokalemia and a significant iron deficiency microcytic anemia. She is not diabetic. She has a BMI of 54. She has chronic neurofibromatosis. She has chronic hypothyroidism and anxiety. She has chronic lymphedema. Echocardiogram obtained today shows on preliminary report a normal left ventricle with bilateral atrial enlargement no marked valvular disease and increased pulmonary pressure of 42 mmHg. Here she has had compression wraps on her legs. She does not have open wounds on her legs at this time. She is scheduled for a colonoscopy in the 1st week of November. She has also had previous colonoscopies. I have recommended that she also get upper endoscopy at that time to evaluate her iron deficiency anemia. She tells me her family has Graf syndrome. From talking to her it is unclear who has the diagnosis in her family. She has never been told that she has Radha syndrome however. October 27: She tells me she is not tolerating p.o. food and fluid. Her diarrhea was better overnight but today she ate a little bit and the diarrhea is worse again. CT chest abdomen pelvis showed: IMPRESSION: 1. No acute findings. 2. Cholelithiasis. 3. Mild emphysema. 4. Mild pelvic adenopathy, nonspecific. 5. Atrophic left kidney. October 28: Tolerating p.o. fluids. Diarrhea is better. Now starting prep for colonoscopy. Last night had recurrent self-limited episodes of atrial fibrillation with RVR. Started on metoprolol. October 29: Dr. Parker performed colonoscopy and upper endoscopy. These were unremarkable except for a bleeding hemorrhoid. She remains in sinus rhythm. Symptoms of gastroenteritis have resolved. Status at Discharge Functional status at discharge: independent ambulation Overall status at discharge: patient is progressing back to baseline Time Spent with Patient Time attestation: Total time spent providing and/or coordinating discharge services: 45 mins. Time spent: Greater than 30 minutes Exam Narrative: Exam Narrative: She is alert appears in no distress. Breathing is unlabored. Cardiovascular: S1, S2, regular rate and rhythm. Abdomen is soft without tenderness. Const: Vital Signs, click to edit/add: Vital Signs - 24 hr 10/29/23 15:08 10/29/23 16:23 10/29/23 16:24 Temperature 98.8 F Pulse Rate 95 Pulse Rate [Pulse Oximeter] 78 78 Respiratory Rate 18 18 Blood Pressure [Le ft Arm] Blood Pressure [Ri ght Arm] 128/65 Pulse Oximetry 95 Oxygen Delivery Me thod Room Air 10/29/23 19:42 10/29/23 23:00 10/29/23 23:08 Temperature 98.6 F Pulse Rate 75 Pulse Rate [Pulse Oximeter] 92 82 Respiratory Rate 18 18 Blood Pressure [Le ft Arm] Blood Pressure [Ri ght Arm] 145/84 H Pulse Oximetry 92 Oxygen Delivery Me thod Room Air 10/29/23 23:23 10/30/23 03:00 10/30/23 07:00 Temperature 98.8 F 98.7 F Pulse Rate Pulse Rate [Pulse Oximeter] 82 83 89 Respiratory Rate 18 18 22 Blood Pressure [Le ft Arm] Blood Pressure [Ri ght Arm] 116/65 125/63 Pulse Oximetry 92 95 Oxygen Delivery Me thod Room Air Room Air 10/30/23 07:00 10/30/23 08:00 10/30/23 11:00 Temperature 99 F 98.5 F Pulse Rate 81 Pulse Rate [Pulse Oximeter] 89 90 Respiratory Rate 22 20 Blood Pressure [Le ft Arm] 136/75 Blood Pressure [Ri ght Arm] 133/65 Pulse Oximetry 92 93 Oxygen Delivery Me thod Room Air Room Air Documenting provider has reviewed patient's vital signs: yes DS: Data Data Completed and Pending Labs on day of discharge: Labs from last 24 hours 10/30/23 05:45 WBC 7.39 RBC 4.01 Hgb 8.2 L Hct 27.9 L MCV 70 L MCH 20 L MCHC 29 L RDW Coeff of [place] 23.0 H Plt Count 248 Neut % (Auto) 75.3 H Lymph % (Auto) 9.6 L [place] % (Auto) 11.1 H Eos % (Auto) 1.9 Baso % (Auto) 0.5 Neut # (Auto) 5.60 Lymph # (Auto) 0.70 L [place] # (Auto) 0.80 Eos # (Auto) 0.14 Baso # (Auto) 0.04 Abs Immat Gran (auto) 0.12 Imm/Tot Granulo (auto) 1.6 Diff Slide Review Acceptable Review Sodium 139 Potassium 3.9 Chloride 113 Carbon Dioxide 22 Anion Gap 4 L BUN 7 Creatinine 0.6 Estimated Creat Clear 42.32 Estimated GFR 100 Glucose 97 Calcium 8.0 L Preliminary micro results at discharge 10/27/23 Unknown Stool Culture - Preliminary Stool Discharge Plan Discharge Disposition: Home, Self-Care Date of Admission: 10/27/23 11:07 Attending Provider on Discharge: Adam Ash Primary Care Provider: Kylah Beltran Condition: Stable Anticipated Discharge Date/Time: 10/30/23 12:04 Discharge Medications: New metoprolol succinate 50 mg capsule,sprinkle,ER 24hr 50 mg PO DAILY Qty: 30 0RF ferrous sulfate 325 mg (65 mg iron) tablet 325 mg PO DAILY Qty: 100 3RF Continued cetirizine 10 mg tablet 10 mg PO DAILY citalopram 10 mg tablet 10 mg PO DAILY Patient Comments: 30 MG TOTAL bacitracin 500 unit/gram ointment 1 applic topical BID omeprazole 40 mg capsule,delayed release(DR/EC) 40 mg PO DAILY citalopram 20 mg tablet 20 mg PO DAILY Patient Comments: 30 MG TOTAL triamcinolone acetonide 0.1 % ointment 1 applic topical BID buspirone 10 mg tablet 10 mg PO BID hydroxyzine HCl 25 mg tablet 25 mg PO Q6H PRN cholecalciferol (vitamin D3) 125 mcg (5,000 unit) capsule 125 mcg PO DAILY calcium carbonate-vitamin D3 600 mg-10 mcg (400 unit) tablet 1 tab PO DAILY acetaminophen 325 mg tablet 650 mg PO Q6H PRN ipratropium-albuterol 0.5 mg-3 mg(2.5 mg base)/3 mL solution for nebulization 3 ml inhalation Q6H PRN melatonin 10 mg capsule 20 mg PO HS Pure Taurine 500 mg capsule 1,000 mg PO DAILY valerian root 500 mg capsule 500 mg PO HS levothyroxine [Synthroid] 150 mcg tablet 150 mcg PO DAILY Qty: 30 0RF Rx Instructions: Take 1 tablet 6 days a week. Skip 1 day a week. Discharge Orders: Discharge Order (Routine); Ordered 10/30/23 Ordered By: Adam Ash Patient Education: Iron Supplements (By mouth), Metoprolol (By mouth), A-fib (Atrial Fibrillation) (DC), Hypokalemia (DC) Activity Level: Activity as Tolerated Discharge Diet: Heart Healthy (2 gm sodium, low fat) Follow Up Appointments: Kylah Beltran MD [Primary Care Provider] - (Follow-up in 1 week. Check CBC and basic metabolic panel. Check TSH and iron studies and hemoglobin in 6-8 weeks.) Forms: [employer] Info Instructions
[2023-10-30 12:53] LABS: Adenovirus PCR Not Detected; Astrovirus PCR Not Detected; Campylobacter PCR Not Detected; Cryptosporidium PCR Not Detected; Cyclospora cayetanensis PCR Not Detected; Entamoeba histolytica PCR Not Detected; Enteroaggregative E coli PCR Not Detected; Enteropathogenic E coli PCR Not Detected; Enterotoxigenic E coli PCR Not Detected; Giardia lamblia PCR Not Detected; Norovirus Gi/GII PCR Not Detected; Plesiomonas shig PCR Not Detected; Rotavirus A PCR Not Detected; Salmonella PCR Not Detected; Sapovirus PCR Not Detected; Shiga toxin E coli PCR Not Detected; Shigella/Enteroinvasive E coli Not Detected; Vibrio PCR Not Detected; Vibrio cholerae PCR Not Detected; Yersinia enterocolitica PCR Not Detected
--- NOTE | 2023-10-30 13:12 | PC.NURSE ---
Nursing discharge note: Pt is A&O x4, afebrile and VSS today. She is SBA and needs assistance getting herself from a laying to sitting position out of bed. PIV in left hand infusing NS w/ 20 mEq K+ @ 125 mL/hr. She had and upper and lower endoscopy done this morning which she tolerated well. When she returned to her room, IVF was discontinued. Pt tolerated breakfast with no N/V or pain. Pt c/o chronic low back pain in which Aqua K pad is in place. PIV removed from left hand- catheter intact. Pt was assisted getting dressed SBA. TELE read sinus arrhythmia. Pt refused her nystatin cream/powder this morning. BLE IVAN wraps intact. Pt had x2 clear, yellow BM?s today. Discharge education and appointment f/u reviewed with patient who verbalized understanding. Pt discharged home accompanied by a friend via W/C at 1310. ?
== END 2023-10-30 13:10 | disposition home or self-care (01) | DRG 392 ==
LOC: ED 09:13 → MEDSURG 10:27
PROVIDERS: Family Medicine; Admitting Provider Family Medicine; Emergency Provider Family Medicine; PCP Family Medicine; Visit Provider Family Medicine
DX: K52.9 Noninfective gastroenteritis and colitis, unspecified (principal); K92.1 Melena; Z68.43 Body mass index [BMI] 50.0-59.9, adult; K29.80 Duodenitis without bleeding; K64.8 Other hemorrhoids; D50.9 Iron deficiency anemia, unspecified; E87.5 Hyperkalemia; E03.9 Hypothyroidism, unspecified; Q85.01 Neurofibromatosis, type 1; I48.91 Unspecified atrial fibrillation; E66.01 Morbid (severe) obesity due to excess calories; F32.9 Major depressive disorder, single episode, unspecified; F41.9 Anxiety disorder, unspecified; I89.0 Lymphedema, not elsewhere classified; I87.2 Venous insufficiency (chronic) (peripheral); J45.909 Unspecified asthma, uncomplicated; G47.33 Obstructive sleep apnea (adult) (pediatric); Z87.891 Personal history of nicotine dependence
CPT/HCPCS: 00813; 36415; 43239; 45380; 71045; 71260; 74177; 80048; 80053; 80076; 81001; 82270; 82550; 82803; 83036; 83540; 83550; 83690; 83735; 83880; 84145; 84439; 84443; 84484; 85018; 85025; 85379; 86140; 87045; 87046; 87077; 87086; 87186; 87427; 87493; 87505; 93005; 93306; 97116; 97161; 97165; 97530; 97535; 99284; 99285; 99291; A9270; C9113; J2405; J2704; J3480; J3490; J7030; Q9967

== ENCOUNTER 2023-11-02 06:13 | Emergency (ER) | payer MEDICARE, OTHER, SELFPAY ==
[2023-11-02 06:26] VITALS: BP 151/77; PULSE 106; RESP 16; TEMP 36.6; O2SAT 96; BMI 56.7
[2023-11-02 06:27] VITALS: PULSE 105; O2SAT 97
[2023-11-02 06:30] VITALS: PULSE 111; O2SAT 97
--- NOTE | 2023-11-02 06:49 | ED.GENADULT ---
HPI - General Adult General Chief complaint: Arrhythmia/Palpitations Stated complaint: heart racing Time Seen by Provider: 11/02/23 06:33 Source: patient Limitations: no limitations History of Present Illness HPI narrative: 63-year-old female presents to the emergency department with concerns of rapid heart rate. She was recently discharged from our hospital after a diagnosis of gastroenteritis and new onset AFib. It was clear that there was some failure to thrive going on at the time. Those notes are reviewed. 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 She says that over the last couple days of not having the medication, she has been gradually feeling more short of breath and with rapid heart rate. She tried to law gone to her pharmacies site a couple of days ago to see if her prescription was available and it did not show on line that was. She did not try calling to see if it was available or seeing if anyone else could pick it up for her. She says that she admits she was kind of frustrated that she had to be on another medication. She no longer drives. She has a visiting nurse that comes several times per week to help with her lymphedema wraps and setting up her medications. She notes no recent fever, trauma or injury. No productive cough. Her GI symptoms continue to be improved. When I asked specifically if she is needing to go into a assisted facility or assisted living, she adamantly refuses this, stating that she wants to live independently. When I explained to her that that means she has to be able to do things for herself like pick up truck driver or at least arrange delivery of her new medication, she nods in understanding and agreement. EMS states that her house was a ?hoarder situation?. She tells me that she gets all of her groceries delivered by [employer] delivery. She lives in [place]. She has services to help with medical transport, home nursing. Denies alcohol or drug use. Recent hospital discharge reviewed. Medications accurate as listed. No changes from discharge other than she has not picked up her metoprolol. ROS is notable for the generalized and cardiac symptoms as described above. Otherwise, she denies times 12 systems. Related Data Home Medications Medication Instructions Recorded Confirmed acetaminophen 325 mg tablet 650 mg PO Q6H PRN 10/27/23 10/27/23 bacitracin 500 unit/gram topical 1 applic topical BID 10/27/23 10/27/23 ointment buspirone 10 mg tablet 10 mg PO BID 10/27/23 10/27/23 calcium carbonate 600 mg-vitamin 1 tab PO DAILY 10/27/23 10/27/23 D3 10 mcg (400 unit) tablet cetirizine 10 mg tablet 10 mg PO DAILY 10/27/23 10/27/23 cholecalciferol (vitamin D3) 125 125 mcg PO DAILY 10/27/23 10/27/23 mcg (5,000 unit) capsule citalopram 10 mg tablet 10 mg PO DAILY 10/27/23 10/27/23 citalopram 20 mg tablet 20 mg PO DAILY 10/27/23 10/27/23 hydroxyzine HCl 25 mg tablet 25 mg PO Q6H PRN 10/27/23 10/27/23 ipratropium 0.5 mg-albuterol 3 mg 3 ml inhalation Q6H PRN 10/27/23 10/27/23 (2.5 mg base)/3 mL nebulization soln melatonin 10 mg capsule 20 mg PO HS 10/27/23 10/27/23 omeprazole 40 mg capsule,delayed 40 mg PO DAILY 10/27/23 10/27/23 release taurine 500 mg capsule (Pure 1,000 mg PO DAILY 10/27/23 10/27/23 Taurine) triamcinolone acetonide 0.1 % 1 applic topical BID 10/27/23 10/27/23 topical ointment valerian root 500 mg capsule 500 mg PO HS 10/27/23 10/27/23 Previous Rx's Medication Instructions Recorded ferrous sulfate 325 mg (65 mg 325 mg PO DAILY #100 tabs 10/30/23 iron) tablet levothyroxine 150 mcg tablet 150 mcg PO DAILY #30 tabs 10/30/23 (Synthroid) metoprolol succinate 50 mg capsule 50 mg PO DAILY #30 ea 10/30/23 sprinkle, ext. release 24 hr metoprolol succinate 50 mg 50 mg PO DAILY atrial fibrillation 11/02/23 tablet,extended release 24 hr #90 tabs Allergies Allergy/AdvReac Type Severity Reaction Status Date / Time Penicillins Allergy Unknown Verified 10/28/23 11:33 [facility] Medical History Neurofibromatosis, type I (von Recklinghausen's disease) ?Q85.01 - Neurofibromatosis, type 1 (ICD-10) Morbid obesity ?E66.01 - Morbid (severe) obesity due to excess calories (ICD-10) Hypothyroidism ?E03.9 - Hypothyroidism, unspecified (ICD-10) Major depression ?F32.9 - Major depressive disorder, single episode, unspecified (ICD-10) Chronic anxiety ?F41.9 - Anxiety disorder, unspecified (ICD-10) Lymphedema ?I89.0 - Lymphedema, not elsewhere classified (ICD-10) Chronic stasis dermatitis ?I87.2 - Venous insufficiency (chronic) (peripheral) (ICD-10) Asthma ?J45.909 - Unspecified asthma, uncomplicated (ICD-10) ANGELO (obstructive sleep apnea) ?G47.33 - Obstructive sleep apnea (adult) (pediatric) (ICD-10) Surgical History H/O breast biopsy ?Z98.890 - Other specified postprocedural states (ICD-10) Status post excisional biopsy ?Z98.890 - Other specified postprocedural states (ICD-10) Cataract ?H26.9 - Unspecified cataract (ICD-10) Social History Narrative: Lives alone in [place]. 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 Nonsmoker. Drinks weekly. Never . No children. she designates Brooklyn Guo, friend, as emergency contact. She has a Uncle Rene who would also be contacted. Does not drive. What is your current living situation?: I presently have a place to live Problems where you live: no known problems Problems where you live details: n/a In the past 12 months, utilities in danger of being shut off: no In past 12 months, lack of transportation kept you from medical appts, meetings, work, or getting things needed for daily living: no In the past 12 mos, have been you worried that your food would run out before you had money to buy more?: never true In the past 12 mos, the food you bought just didn't last and you didn't have money to buy more?: never true Highest level of school completed/degree received: some college, no degree Smoking Status: Former smoker How often do you have a drink containing alcohol: never How many standard drinks containing alcohol do you have on a typical day: 3 or 4 How often do you have six or more drinks on one occasion: Monthly AUDIT-C Alcohol total score: 3 Non-prescribed substance use: denies use Caffeine: Yes (soda) How often does anyone, including family, friends and others, physically hurt you: never How often does anyone, including family, friends and others, insult or talk down to you: never How often does anyone, including family, friends and others, threaten you with harm: never How often does anyone, including family, friends and others, scream or curse at you: never service: No Exam Const: Vital Signs, click to edit/add: Vital Signs - 24 hr 11/02/23 06:26 11/02/23 06:27 11/02/23 06:30 Temperature 98 F Pulse Rate 105 H 111 H Pulse Rate [Pulse Oximeter] 106 H Respiratory Rate 16 Blood Pressure [Ri ght Upper Arm] 151/77 H Pulse Oximetry 96 97 97 Oxygen Delivery Me thod Room Air Documenting provider has reviewed patient's vital signs: yes Common normals: alert Other: Mildly tearful at times when we discussed her overall prognosis for independent living but she does not in agreement and understanding. Has her lymphedema wraps properly applied and appears well nourished and well hydrated. HENMT: Common normals: normocephalic and head/scalp atraumatic Head and scalp: normocephalic and atraumatic Mouth: oral and palatal mucosa normal Other: Skin nodules consistent with neurofibromatosis, known Eye: Common normals: conjunctivae normal General eye: normal appearance of both eyes Conjunctiva: conjunctiva(e) normal Neck & C-Spine: General: normal visual inspection Resp: Common normals: normal respiratory effort and no use of accessory muscles Effort & inspection: able to speak in complete sentences Other: A little decreased at the bases but I suspect this is body habitus. No mirian crackles. Cardio: Other: Irregular. At the time of my interview, heart rate observed on the monitor to be between 98 and 109 GI: Common normals: Normal to inspection, nondistended, normoactive bowel sounds present, no hepatosplenomegaly and no masses Palpation: no hepatosplenomegaly Extremity: Other: Lymphedema wraps in place. No signs of soiling Neuro: Sensorium/orientation: alert Speech: speech normal Other: She can move all extremities symmetrically though she greatly resists doing so on exam. Does not appear to be related to acute pain. Psych: Common normals: thought process normal Attitude: calm Thought process: normal thought process Thought content: normal thought content Insight: fair Judgement: fair Skin: Narrative: Skin nodules, stable. No signs of acute bruising or trauma. Course Course ED Course: 63-year-old female with recent hospital discharge for gastroenteritis, thorough workup completed. Recent diagnosis of new onset AFib, started on metoprolol which controlled her heart rate well in the hospital. Patient has not picked up the medication and the subsequent obvious consequence is that her AFib is no longer rate controlled. Counseled patient on this. We had a long mirian conversation regarding whether she think she can continue to live independently if she is unable to find a way to pick up truck driver medications. She already has home health, grocery delivery and almost all of the services that could possibly be set up for her. I strongly encouraged her to consider assisted living as I do not think she can continue to manage independently. She will be given extended release metoprolol here in the ED. I will talk to pharmacy about getting a few days worth of metoprolol for discharge and she will have to pick up truck driver her home doses. Recheck basic labs to ensure that there have been no dehydration, electrolyte abnormalities or severe cardiac strain. Consider chest x-ray if inconclusive. Anticipate discharge to home if she is declining placement. On shortly after initial conversation, did observe patient ambulating from room [address] the bathroom without significant difficulty. She was unassisted. She did not use any assistive devices. Reevaluation(s) Time of Reevaluation #1: 07:53 Reevaluation #1: Discussed findings with patient. Labs are overall reassuring. A little bit of extra potassium is given dose to prevent hypokalemia again. She will need a follow-up with her primary care provider in a week to see if she does need to stay on a potassium supplement. Most of this is thought to be from the diarrhea that she was having from her supratherapeutic hypothyroidism treatment. She responded beautifully to the metoprolol. Heart rate is now consistently in the low 90s. As stated, she ambulated to the bathroom without difficulty. She has an appointment with her telephonic nurse case manager today and has gotten confirmation that her nurse can pick up truck driver her medications. I did go ahead and send a supply of the extended release metoprolol to her mail order pharmacy just in case she has a delay in getting in with her primary care team. We reviewed the indications that would warrant ED presentation. Again I reviewed that I think she needs more care than she is currently able to manage. She will discuss this with her top case assembler. I was able to arrange a 5 day supply of medication for her to take home from the emergency department today with her. She with will be awaiting transportation home. Vital Signs Vital signs: Initial Vital Signs Temperature 98 F 11/02/23 06:26 Temperature Source Temporal Artery Scan 11/02/23 06:26 Pulse Rate 106 H 11/02/23 06:26 Respiratory Rate 16 11/02/23 06:26 Blood Pressure 151/77 H 11/02/23 06:26 Blood Pressure Mean 101 11/02/23 06:26 Blood Pressure Position Sitting 11/02/23 06:26 Pulse Oximetry 96 11/02/23 06:26 Oxygen Delivery Method Room Air 11/02/23 06:26 Vital Signs Temperature 98 F 11/02/23 06:26 Pulse Rate 106 H 11/02/23 06:26 Respiratory Rate 16 11/02/23 06:26 Blood Pressure 151/77 H 11/02/23 06:26 Pulse Oximetry 96 11/02/23 06:26 Oxygen Delivery Method Room Air 11/02/23 06:26 Temperature 98 F 11/02/23 06:26 Pulse Rate 111 H 11/02/23 06:30 Respiratory Rate 16 11/02/23 06:26 Blood Pressure 151/77 H 11/02/23 06:26 Pulse Oximetry 97 11/02/23 06:30 Oxygen Delivery Method Room Air 11/02/23 06:26 Medications Administered Medications: Discontinued Medications Generic Name Dose Route Start Last Admin Trade Name Freq PRN Reason Stop Dose Admin Metoprolol Succinate 50 mg 11/02/23 06:45 11/02/23 06:53 Metoprolol Succinate (Xl) 50 Mg Tab PO 11/02/23 06:46 50 mg ONCE ONE Administration Medical Decision Making Lab Data Lab results reviewed: Yes I reviewed the patient's lab results Lab results narrative: Anemia stable from hospital discharge. No leukocytosis. Troponins are negative. Potassium is borderline low, improved from when she came in the hospital last week, 40 mEq of potassium will be given p.o. x1 to prevent any further hypokalemia. Labs do not show any signs of dehydration or kidney failure. Labs: Lab Results 11/02/23 11/02/23 Range/Units 06:45 06:57 WBC 5.88 (4.50-11.00) K/uL RBC 4.48 (4.00-5.20) m/uL Hgb 9.1 L (12.0-16.0) gm/dL Hct 30.8 L (33.0-51.0) % MCV 69 L (80-100) fL MCH 20 L (26-34) pg MCHC 30 L (32-36) gm/dL RDW Coeff of Lynn 23.7 H (11.5-15.5) % Plt Count 158 (140-440) K/uL Neut % (Auto) 78.8 H (42.0-72.0) % Lymph % (Auto) 6.1 L (20-44) % [place] % (Auto) 10.5 (0.0-11.0) % Eos % (Auto) 2.9 (0.0-7.0) % Baso % (Auto) 0.7 (0.0-3.0) % Neut # (Auto) 4.60 (1.7-7.0) K/uL Lymph # (Auto) 0.40 L (0.90-2.90) K/uL [place] # (Auto) 0.60 (0.00-0.90) K/UL Eos # (Auto) 0.17 (0.00-0.50) K/uL Baso # (Auto) 0.04 (0.00-0.30) K/uL Abs Immat Gran (auto) 0.06 (0.00-0.30) K/uL Imm/Tot Granulo (auto) 1.0 % Diff Slide Review Acceptable Review (Acceptable) Sodium 140 (135-149) mmol/L Potassium 3.3 L (3.6-5.1) mmol/L Chloride 109 (96-114) mmol/L Carbon Dioxide 24 (20-32) mmol/L Anion Gap 7 (7-15) mEq/L BUN 10 (7-30) mg/dL Creatinine 0.6 (0.5-1.5) mg/dL Estimated Creat Clear 42.32 Estimated GFR 100 ml/min Glucose 79 (60-115) mg/dL Calcium 8.7 (8.4-10.6) mg/dL Magnesium 1.6 (1.5-2.6) mg/dL POC Troponin I 0.00 L (0.01-0.04) ng/ml ECG Data Attestation: I personally reviewed and interpreted this ECG as follows: Prior ECG tracings: available for review Interpretation: AFib, rate 106. Septal changes which are unchanged from comparison of 10/27/2023. No new ischemia. Slight leftward deviated axis. Discharge Plan Discharge Clinical Impression: Atrial fibrillation with RVR Patient Disposition: Home, Self-Care Condition: Stable Instructions: A-fib (Atrial Fibrillation) (ED) Additional Instructions: It is fully understandable that your heart rate became elevated and you became more short of breath when you did not have your metoprolol. Metoprolol is the new medication your started on in the hospital to help lower your heart rate. Unfortunately, the atrial fibrillation will be long-term for you. It is very important that you take the metoprolol so that you do not feel so weak. I know that getting your medications as difficult for you. I do think that it is time for you to consider moving into an assisted living or a different type of arrangement where you can receive more services than independent living. It will take a couple of days for the medication to build back up in your system. I have started you on a once daily dose of the medication and have given you a 5 day supply. I have also sent an order to your mail order pharmacy but it will not likely come before your 5 days supply of medications is exhausted. You will need to pick up truck driver the prescription given to you at hospital discharge. I am not sure if the lower dose once daily or the higher dose twice daily will be right for you. I am hoping you can get by with the lower dose, once daily medication. It is important that you follow-up with your primary care provider in about a week to recheck your heart rate, potassium level, anemia, blood pressure and see how things are going. They will need to make the final determination on which dose is right for you. It can be common to need to adjust the dose over time as well. Unfortunately, AFib is often a moving target. Your electrolytes, kidney function, hydration status all look good today. But again, it is time for you to consider how you will continue to manage independently and begin looking for an option that will better meet your needs as your body continues to age. Remember that in the hospital, they also recommended that you reduce your thyroid medicine to 6 days per week rather than 7 days. This will also help control your heart rate and reduce her diarrhea overall. Your primary care doctor may need to reduce this even further based on follow-up labs in a month or 2. Activity Level: No Restrictions Discharge Diet: Regular Prescriptions: New metoprolol succinate 50 mg tablet extended release 24 hr 50 mg PO DAILY Qty: 90 1RF No Action cetirizine 10 mg tablet 10 mg PO DAILY citalopram 10 mg tablet 10 mg PO DAILY Patient Comments: 30 MG TOTAL bacitracin 500 unit/gram ointment 1 applic topical BID omeprazole 40 mg capsule,delayed release(DR/EC) 40 mg PO DAILY citalopram 20 mg tablet 20 mg PO DAILY Patient Comments: 30 MG TOTAL triamcinolone acetonide 0.1 % ointment 1 applic topical BID buspirone 10 mg tablet 10 mg PO BID hydroxyzine HCl 25 mg tablet 25 mg PO Q6H PRN cholecalciferol (vitamin D3) 125 mcg (5,000 unit) capsule 125 mcg PO DAILY calcium carbonate-vitamin D3 600 mg-10 mcg (400 unit) tablet 1 tab PO DAILY acetaminophen 325 mg tablet 650 mg PO Q6H PRN ipratropium-albuterol 0.5 mg-3 mg(2.5 mg base)/3 mL solution for nebulization 3 ml inhalation Q6H PRN melatonin 10 mg capsule 20 mg PO HS Pure Taurine 500 mg capsule 1,000 mg PO DAILY valerian root 500 mg capsule 500 mg PO HS metoprolol succinate 50 mg capsule,sprinkle,ER 24hr 50 mg PO DAILY Qty: 30 0RF levothyroxine [Synthroid] 150 mcg tablet 150 mcg PO DAILY Qty: 30 0RF Rx Instructions: Take 1 tablet 6 days a week. Skip 1 day a week. ferrous sulfate 325 mg (65 mg iron) tablet 325 mg PO DAILY Qty: 100 3RF Follow Up/Referrals: Kylah Beltran MD [Primary Care Provider] - Stand Alone Forms: [employer] Info Instructions
[2023-11-02] MEDS: METOPROLOL SUCCINATE (XL) 50 MG TAB PO (06:53)
[2023-11-02 07:04] LABS: Basophils Absolute Auto 0.04 K/uL (0.00-0.30); Basophils Percent Auto 0.7 % (0.0-3.0); Eosinophils Absolute Auto 0.17 K/uL (0.00-0.50); Eosinophils Percent Auto 2.9 % (0.0-7.0); Hematocrit 30.8 % (33.0-51.0); Hemoglobin* 9.1 gm/dL (12.0-16.0); Immature Granulocytes Abs Auto 0.06 K/uL (0.00-0.30); Lymphocytes Percent Auto 6.1 % (20-44); Mean Corpuscular HGB Conc 30 gm/dL (32-36); Mean Corpuscular Hemoglobin 20 pg (26-34); Mean Corpuscular Volume 69 fL (80-100); Monocytes Percent Auto 10.5 % (0.0-11.0); Neutrophils Percent Auto 78.8 % (42.0-72.0); Platelet Count* 158 K/uL (140-440); RDW Coefficient of Variation % 23.7 % (11.5-15.5); Red Blood Count 4.48 m/uL (4.00-5.20); White Blood Count* 5.88 K/uL (4.50-11.00)
[2023-11-02 07:14] LABS: Chloride* 109 mmol/L (96-114)
[2023-11-02 07:15] LABS: Potassium* 3.3 mmol/L (3.6-5.1); Sodium* 140 mmol/L (135-149)
[2023-11-02 07:16] LABS: Slide Review Reflex Yes
[2023-11-02 07:17] LABS: Anion Gap 7 mEq/L (7-15); Carbon Dioxide* 24 mmol/L (20-32); Creatinine* 0.6 mg/dL (0.5-1.5); Est. Creatinine Clearance* 42.32; Estimated Glomerular Filt Rate 100 ml/min
[2023-11-02 07:18] LABS: Blood Urea Nitrogen* 10 mg/dL (7-30); Calcium* 8.7 mg/dL (8.4-10.6); Glucose* 79 mg/dL (60-115); Magnesium* 1.6 mg/dL (1.5-2.6)
[2023-11-02 07:43] LABS: Slide Review Acceptable Review (Acceptable)
[2023-11-02 07:53] LABS: NT Pro B Type NatriureticPept* 516 pg/mL
== END 2023-11-02 08:26 | disposition home or self-care (01) ==
PROVIDERS: Emergency Provider Family Medicine; PCP Family Medicine
DX: I48.91 Unspecified atrial fibrillation (principal)
CPT/HCPCS: 36415; 80048; 83735; 83880; 84484; 85025; 93005; 99284; A9270

== ENCOUNTER 2024-09-09 10:39 | Outpatient (CLI) | payer OTHER, SELFPAY | END 2024-09-09 10:40 | disposition home or self-care (01) | LOC: AMB 09-12 13:51 | PROVIDERS: PCP Family Medicine; Visit Provider Family Medicine | DX: R10.9 Unspecified abdominal pain (principal) | CPT/HCPCS: A0425; A0427 ==

== ENCOUNTER 2024-09-09 11:28 | Inpatient (IN) | payer OTHER, SELFPAY ==
[2024-09-09] VITALS (17 sets, daily range): BP systolic 108–169; BP diastolic 65–83; PULSE 62–73; RESP 20–24; TEMP 36.8–37.1; O2SAT 86–96; BMI 72.2
--- OUTSIDE RECORDS SUMMARY | 2024-09-09 11:31 | XMS_ITS | Clinical Summary ---
Author Organization [employer] [facility] Address [place], [place] [address] Care Team Providers Care Teletype Operator Name Role Phone Lobo Burt Unavailable Services, [facility] Physician Primary Care Provi osnam Allergies Active Allergy Reactions Criticality Noted Date Comments Adhesive Rash 02/18/2015 Depends on the brand Aspartame Headache 11/08/2023 Severe migraines when consumed Penicillins Shortness Of Breath 12/10/2013 Medications calcium carbonate-vitamin D3, 600 mg-400 unit, 600 mg-10 mcg (400 unit) tabletIndications: Well woman exam Take 1 Tablet by mouth once daily with a meal. 90 Tablet 1 3 Active cetirizine (ZYRTEC) 10 mg tabletIndications: Dry skin dermatitis Take 1 Tablet (10 mg) by mouth once daily. 100 Tablet 1 3 Active busPIRone (BUSPAR) 10 mg tabletIndications: Anxiety,Major depressive disorder, recurrent episode, in full remission (HC) Take 1 Tablet (10 mg) by mouth two times daily. 200 Tablet 3 4 Active omeprazole (PRILOSEC) 40 mg Delayed-Release capsuleIndications :Ying's esophagus without dysplasia Take 1 Capsule (40 mg) by mouth once daily before a meal. 100 Capsule 3 4 Active citalopram (CELEXA) 10 mg tabletIndications: Anxiety,Major depressive disorder, recurrent episode, in full remission (HC) Take 1 Tablet (10 mg) by mouth every morning. Take with a 20mg pill to equal 30mg total daily dose. 100 Tablet 3 4 Active citalopram (CELEXA) 20 mg tabletIndications: Anxiety,Major depressive disorder, recurrent episode, in full remission (HC) Take 1 Tablet (20 mg) by mouth every morning. Take with a 10mg pill to equal 30mg total daily dose. 100 Tablet 3 4 Active metoprolol succinate (TOPROL XL) 50 mg sustained-release tabletIndications: Atrial fibrillation with rapid ventricular response (HC) Take 1 Tablet (50 mg) by mouth once daily. 100 Tablet 3 4 Active ferrous sulfate, 65 mg elemental, tablet Take 325 mg by mouth once daily. 4 Active cholecalciferol (VITAMIN D3) 2,000 unit capsule Take 2,000 units by mouth three times daily. Active hydrOXYzine HCL (ATARAX) 10 mg tablet Take 10 mg by mouth three times daily. for itching Active albuterol-ipratrop ium (DUONEB) (2.5-0.5 mg) in 3 mL NEBULIZATION solutionIndication s:Mild intermittent asthma, unspecified whether complicated Inhale 3 mL via a nebulizer 4 times daily if needed for Wheezing or Shortness of Breath 1st choice. 4 Active levothyroxine (SYNTHROID) 150 mcg tabletIndications: Hypothyroidism (acquired) Take on tablet 6 days a week and skip the 7th day 4 Active aspirin (ECOTRIN) 81 mg enteric coated tablet Take 81 mg by mouth two times daily. 4 Active magnesium oxide (MAG-OX 400) 400 mg tablet Take 1 Tablet (400 mg) by mouth at bedtime. 4 Active acetaminophen (TYLENOL) 325 mg tablet Take 2 Tablets (650 mg) by mouth 3 times daily if needed for Pain. 4 Active clotrimazole (LOTRIMIN) 1 % cream Apply to groin/under left breast topically two times a day for rash on the groin/ reddening under the breast until redness and rash is gone 4 Active hospital bedIndications:Mor bid obesity (HC),Osteoarthriti s of both knees, unspecified osteoarthritis type Hospital bed with mattress and halo bed rails Bariatric bed. Length of need 99 months. Bed recovery analyst:no 4 Active wheelchairIndicati ons:Morbid obesity (HC),Osteoarthriti s of both knees, unspecified osteoarthritis type 24x18 lópez-height wheelchair with standard leg rests, armrests, and cushion Length of need: 99 months. Height 61 inches Weight 272lbs 4 Active WalkerIndications: Morbid obesity (HC),Osteoarthriti s of both knees, unspecified osteoarthritis type Bariatric Walker with front wheels for home use. Height 61inches. Weight 272 lbs. Length of need = 99 months, lifetime. 4 Active durable medical equipment (DME)Indications:M orbid obesity (HC),Osteoarthriti s of both knees, unspecified osteoarthritis type Bariatric lift recliner 4 Active NebulizerIndicatio ns:Restrictive lung disease secondary to obesity Nebulizer, disposable neb kit x 4, reuseable neb kit x 1, mask x 1, filters x 1. Frequency of use: daily; Medication: duonebs BID Length of need: 99 months lifetime 4 Active melatonin 5 mg tab tablet TAKE 2 TABS (10MG) BY MOUTH AT BEDTIME 4 Active albuterol HFA (PRO-AIR; VENTOLIN; PROVENTIL) 90 mcg/actuation inhalerIndications :Asthma, unspecified asthma severity, unspecified whether complicated, unspecified whether persistent Inhale 2 Puffs by mouth every 4 hours if needed for Shortness Of Breath or Wheezing. 1 Each 4 Active furosemide (LASIX) 20 mg tablet Take 20 mg by mouth once daily in the morning. 4 Active diclofenac topical (VOLTAREN) 1 % gel Apply topically to affected area(s) four times daily. Active hydrocortisone 1 % cream Apply topically to affected area(s) two times daily. Active melatonin 10 mg tab 10 mg. 4 Active Active Problems Problem Noted Date Diagnosed Date Atrial fibrillation 11/07/2023 Microcytic anemia 11/07/2023 Normal anion gap metabolic acidosis 11/07/2023 Hypokalemia 11/07/2023 Adult failure to thrive 11/07/2023 Cellulitis 11/07/2023 Family history of colon cancer 11/01/2023 Overview (11/01/2023): Colonoscopy 10/2023 normal, repeat in 5 years Atrial fibrillation with rapid ventricular respo nse 10/31/2023 Overview (10/31/2023): Started on Metoprolol 09/2023 Skin sloughing 08/04/2021 Asthma 08/04/2021 Lymphedema 05/11/2018 Dermatitis 05/11/2018 Overview (05/11/2018): Left lower leg Neurofibroma 02/18/2015 Morbid obesity 10/10/2012 Anxiety disorder 08/11/2011 Major depressive disorder, r ecurrent episode, in full remission 10/29/2004 Hypothyroidism (acquired) 10/29/2004 VON RECKLINGHAUSEN NEUROFIBROMATOSIS 04/26/2002 ANGELO (obstructive sleep apnea) Resolved Problems Problem Noted Date Diagnosed Date Resolved Date Ingrown left big toenail 11/30/2018 Family history of colon cancer 07/18/2017 09/12/2023 Overview (07/18/2017): Colonoscopy 06/2017 Normal repeat in 5 years Myopia of right eye with astigmatism 12/02/2016 09/12/2023 Restrictive airway disease 09/14/2016 0 09/12/2023 Overview (09/14/2016): Likely secondary to obesity. See pulmonology consult from 09/14/2016. Ying's esophagus 04/15/2009 07/19/20 17 Overview (07/19/2017): EGD 06/2017 normal, no Ying's tissue, no follow up needed Presbyopia 09/29/2005 09/12/2023 Cataract, nuclear sclerotic, right eye 09/12/2023 Age-related nuclear cataract, left 09/12/2023 Encounters Date Type Department Care Team Description 08/23/2024 Telephone [facility] [address] [place] [address] Kylah Beltran MD Form (physician's order) 08/12/2024 Telephone [facility] [address] [place] [place] [address] Kylah Beltran MD Form (PHYSICIAN ORDER) 08/09/2024 Telephone [facility] [address] [place] [address] Kylah Beltran MD Form (HHC & POC) 08/07/2024 Telephone [place] [address] [place] [address] Kylah Beltran MD Form 08/05/2024 Telephone [place] [address] [place] [address] Kylah Beltran MD Form (PHYSICIAN ORDER) 07/22/2024 Telephone [place] [address] [place] [address] Kylah Beltran MD Form (ORDERS) 06/17/2024 Telephone [place] [address] [place] [address] Kylah Beltran MD Form (PHYSICIAN ORDER) 06/12/2024 Telephone [place] [address] [place] [address] Kylah Beltran MD Form (HHC & POC) from Last 3 Months Immunizations Name Administration Dates Next Due COVID-19 VACCINE SPIKEVAX (M ODERNA 50MCG/0.5ML) 12YO+ PFS 09/12/2023 COVID-19 vaccine (Moderna 50 mcg/0.5mL) 12YO+ BIVALENT PF, MDV 08/17/2022 COVID-19 vaccine (Moderna Jose G luisito 50mcg/0.25mL) PF, MDV 12/22/2021,08/04/2021 COVID-19 vaccine (Pfizer-BioNTech 30mcg/0.3mL) P F, MDV 12/05/2020,11/14/2020 Pneumococcal Conj 20-valent (Prevnar 20) 024 Td (Age >=7 Years) 05/24/1999,10/24/1998 Tdap 10/10/2012 Zoster (Shingrix-RZV, recombinant) 09/02/2019, Family History Medical History Relation Name Comments Cancer-colon Brother 1 Juan Cancer Brother 2 Jhonny Rectal cancer Cancer-colon Brother 2 Jhonny Cancer-colon Brother 3 Pantera Other Father burn complicati ons- renal and resp failure Lung cancer Maternal Aunt Macular degeneration Maternal Grandfather Cancer-ovarian Maternal Grandmother Dementia Maternal Grandmother Heart Disease Maternal Grandmother Lung cancer Maternal Grandmother Uterine cancer Maternal Grandmother Diabetes Maternal Uncle Cancer-colon Mother Cancer-ovarian Mother Depression Mother Diabetes Mother Heart Disease Mother Neuroblastoma Mother Uterine cancer Mother Arthritis Other Throughout the family Osteoporosis Other Dad's side of t he family Thyroid Disease Other Dad's side o f the family No Known Problems Sister Iris Relation Name Status Comments Brother 1 Juan Brother 2 Jhonny Brother 3 Pantera Father Maternal Aunt Maternal Grandfather Maternal Grandmother Maternal Uncle Mother Other Paternal Grandfather Paternal Grandmother Sister Iris Alive Social History Tobacco Use Types Packs/Day Years Used Date Smoking Tobacco: Former Cigarettes 1.5 26.8 0 07/31/1975 - 05/31/2002 Smokeless Tobacco: Never Tobacco Cessation:Counseling Given: Yes Alcohol Use Standard Drinks/Week Comments Yes 0 (1 standard drink = 0.6 oz pure alcohol) Once every few weeks to few months; 2-3 drinks at a time PHQ-2 Answer Date Recorded PHQ-2 TOTAL SCORE 0 09/12/2023 Social Connections Answer Date Recorded Do you often feel lonely or isolated from those around you? 0 03/05/2024 Financial Resource Strain Answer Date R ecorded Difficulty of Paying Living Expenses 3 03/05/2024 Difficulty of Paying Living Expenses Not on file 03/05/2024 Food Insecurity Answer Date Recorded Do you worry your food will run out before you are able to buy more? 1 03/05/2024 Transportation Needs Answer Date Record ed Does lack of transportation keep you from medica l appointments? 1 03/05/2024 Does lack of transportation keep you from work, meetings or getting things that you need? 1 03/05/2024 Housing Stability Answer Date Recorded What is your housing situation today? 1 03/05/2024 Interpersonal Safety Answer Date Record ed Are you being hit, kicked, p ushed or yelled at (see row info)? No 11/07/2023 Interpersonal Safety Abuse 12 - 18 Not on file 11/07/2023 Interpersonal Safety Ambulatory Vulnerability No t on file 11/07/2023 Utilities Answer Date Recorded Do you have trouble paying f or utilities (for example, heat, electricity, water, phone)? 1 03/05/2024 Comments No Sex and Gender Information Value Date Recorded Sex Assigned at Not on file Legal Sex Female 5:24 AM LATHE HAND Gender Identity Not on file Sexual Orientation Not on file Occupation Industry Job Start Date Job End Date Unemployed Not on file Not on file Not on file Obstetrics History Para Term AB IAB SAB Ectopic Multiple Livin g Live Births 0 0 0 0 0 0 0 0 0 0 Last Filed Vital Signs Vital Sign Reading Time Taken Comments Blood Pressure 112/73 03/28/2024 2:10 PM CDT Pulse 59 03/28/2024 2:10 PM CDT Temperature 36.9 C (98.5 F) 11/10/2023 9:22 AM CDT Respiratory Rate 18 11/10/2023 9:22 AM CDT Oxygen Saturation 94% 03/28/2024 2:10 PM CDT Inhaled Oxygen Concentration - - Weight 148.7 kg (327 lb 14.4 oz) 03/28/2024 2:10 PM CDT Height 154.9 cm (5' 1) 03/28/2024 2:10 PM CDT Body Mass Index 61.96 03/28/2024 2:10 PM CDT Plan of Treatment Health Maintenance Due Date Last Done Comments RSV vaccine for adults or (1 - Risk 60-74 years 1-dose series) 2018 Mammogram for age 45-75 06/14/2019 06/14/20, 04/26/2017, 10/20/2011, Additional history exists Tetanus booster 10/10/2022 10/10/2012, 05/01, 10/24/1998 DEXA/DXA scan for age 65+ 2023 Influenza for age 65+ 03/31/2024 Medicare Wellness for age 65+ 09/12/2024 09/12/2023 Depression screening for age 12+ 09/14/2024 09/14/2023, 09/12/2023, 08/17/2022, Additional history exists BMI (ht and wt on same day) for age 18+ 03/28/2025 03/28/2024, 09/12/2023, 08/17/2022, Additional history exists Lipids for age 45-75 09/12/2028 09/12/2023, 08/17/2022, 08/04/2021, Additional history exists Colonoscopy through age 75 10/29/202810/29, 10/30/2023, 07/18/2017, Additional history exists Tdap Completed 10/10/2012 Hepatitis C screening for ag e 18-79 Completed 06/04/2019 Zoster (shingles) series for age 50+ Completed 09/02/2019, 06/04/2019 Pneumococcal series for age 50+ Completed COVID-19 vaccine series Completed 04/17/20 24, 09/12/2023, 08/17/2022, Additional history exists Goals Goal Patient Goal Type Associated Problems Recent Progress Patient-Stated? Author BLOOD PRESSURE - MAINTAINS BP less than 140/90 Blood Pressure No Kristie Cristina MD Medical Devices Implanted Type Area Mothers Helper Device Identifier Shelf Expiration Date Model / Serial / Lot Iol [facility] +20.5 [employer]ecnis Zcb00 - [id number] Implanted:Qty: 1 on 05/20/2020 by Shai Patel MD at [facility] Opthalmology Implants Right: Eye [employer] 02/10/2024 ZCB00 20.5# / [id number] / Iol [facility] +21.5 [employer] Zcb00 - [id number] Implanted:Qty: 1 on 06/03/2020 by Shai Patel MD at [facility] Left: Eye [employer] 04/04/2024 ZCB00 21.50# / [id number] / Procedures Procedure Name Priority Date/Time Associated Diagnosis Comments COLONOSCOPY SCREENING Routine 10/30/2023 12:00 AM CDT Screen for colon cancer LIPID PANEL W REFLEX MEASURED LDL Routine 09/12/2023 2:03 PM LATHE [facility] Screening, lipid ANTI HCV Routine 06/04/2019 12:54 PM LATHE HAND Need for hepatitis C screening test XR MAMMO BILAT SCREENING Routine 06/14/2018 3:59 PM LATHE HAND Encounter for screening mammogram for malignant neoplasm of breast from Last 3 Months or Most Recently Relevant to Health Maintenance Results * COLONOSCOPY SCREENING (10/30/2023 12:00 AM CDT) Kylah Beltran MD GI PROCEDURE ORD Final Result * LIPID PANEL W REFLEX MEASURED LDL (09/12/2023 2:03 PM LATHE HAND) CHOLESTEROL,TOTAL 143 100 - 199 mg/dL 09/13/2023 4:33 AM LATHE HAND [facility] [employer] [facility] Comment: Cholesterol, Total Reference Ranges Desirable <200 mg/dL Borderline 200-239 mg/dL High >=240 mg/dL TRIGLYCERIDES 108 <150 mg/dL 09/13/2023 4:33 AM LATHE HAND [facility] [employer] [facility] HDL CHOLESTEROL 61 >40 mg/dL 4:33 AM LATHE HAND [facility] NON-HDL CHOLESTEROL 82 <145 mg/dl 09/13/2023 4:33 AM LATHE HAND [facility] CHOL/HDL RATIO 2.34 <4.50 09/13/2023 4:33 AM LATHE HAND [facility] LDL CHOLESTEROL 60 <=130 mg/dL 09/13/2023 4:33 AM LATHE HAND [facility] VLDL CHOLESTEROL 22 <=30 mg/dL 09/13/2023 4:33 AM [facility]HE HAND [facility] PROVIDER ORDERED STATUS FASTING 09/13/2023 4:33 AM [facility] Blood BLOOD SPECIMEN / Unknown Venipuncture / Unknown 09/12/2023 2:03 PM [facility]HE HAND 09/12/2023 2:03 PM [facility]HE HAND Kylah Beltran MD CHEMISTRY Final R esult [facility] [address] [place] [address], [place] * ANTI HCV (06/04/2019 12:54 PM LATHE HAND) HEPATITIS C ANTIBODY Non-React chelsy Non-React chelsy 06/04/2019 6:49 PM LATHE HAND [facility] Comment:Antibodies to HCV no t detected; does not exclude the possibility of exposure to HCV. Blood BLOOD SPECIMEN / Unknown Butterfly / Unknown 06/04/2019 12:54 PM [facility]HE HAND 06/04/2019 12:54 PM LATHE HAND us Kylah Beltran MD SEND OUTS Final R esult Performing Organization Address [facility]/ZIP Co de Phone Number [facility] [address] [place] [address], [place] * XR MAMMO BILAT SCREENING (06/14/2018 3:59 PM LATHE HAND) Anatomical Region Laterality Modality BREASTS, Breast Left, Breast Right Bilateral Mammography Impressions 06/15/2018 12:35 PM [facility]HE HAND There is no radiographic evidence for malignancy. Recommend annual mammograms. A lay language report of this examination will be provided to the patient. MAMMOGRAM ASSESSMENT: ACR 2 Benign Narrative 06/15/2018 12:35 PM [facility] HAND XR MAMMO BILAT SCREENING [[id number]] CLINICAL HISTORY: This is an asymptomatic 58 y.o. patient. INDICATION FOR EXAM: Mammogram Screening. TECHNIQUE: CC & MLO views were obtained. This digital study was evaluated with the assistance of Computer-Aided Detection. COMPARISON FILMS: Yes 04/26/17 [facility] 10/20/11 [facility] FINDINGS: Mammographically, the breast tissue has scattered fibroglandular densities. No suspicious masses or microcalcifications. Benign appearing calcifications within both breasts. 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 us Kylah Beltran MD MAMMO Final R esult from Last 3 Months or Most Recently Relevant to Health Maintenance Insurance MEDICARE PB ONLY MEDICARE PART A HB ONLY MEDICARE PART B HB ONLY [facility] Advance Directives Documents on File Type Date Recorded Patient Geospatial Analyst Marcio OLIVAREZ 08/17/2022 * Full Code (Latest Code Status on File) Date Activated Date Inactivated Comments 11/07/2023 5:16 PM 11/10/2023 12:27 PM Question Answer Comments Code Status Discussion: Reviewed Preferences * Full Code Date Activated Date Inactivated Comments 06/03/2020 12:21 PM 06/03/2020 4:47 PM Question Answer Comments Code Status Discussion: Not Discussed * Full Code Date Activated Date Inactivated Comments 05/20/2020 12:45 PM 05/20/2020 5:08 PM Question Answer Comments Code Status Discussion: Not Discussed * Full Code Date Activated Date Inactivated Comments 02/19/2015 7:52 AM 02/19/2015 3:08 PM Care Teams Teletype Operator Relationship Specialty Start Date End Date Services, [facility] Physician [address] [place], [place] [id number] PCP - General 03/05/24 Lobo Burt [facility] [address] [place], [place] [phone] Occupational Therapy 11/14/23
--- OUTSIDE RECORDS SUMMARY | 2024-09-09 11:31 | XMS_ITS ---
Author Organization [facility] Address Unknown Allergies, Adverse Reactions, Alerts Substance Reaction Status Noted Date Resolved Date Penicillin active 11/10/2023 Aspartame active 11/10/2023 Adhesive active 11/10/2023 Problems Problem Status Start Date End Date NEUROFIBROMATOSIS, TYPE 1 (Primary) (Q85.01 - ICD-10-C M) ACTIVE 11/10/2023 ADULT FAILURE TO THRIVE (R62.7 - ICD-10-CM) ACTIVE 11/10/2023 MORBID (SEVERE) OBESITY DUE TO EXCESS CALORIES (E66.01 - ICD-10-CM) ACTIVE 11/10/2023 OBSTRUCTIVE SLEEP APNEA (JYOTI LT) (PEDIATRIC) (G47.33 - ICD-10-CM) ACTIVE 11/10/2023 CELLULITIS, UNSPECIFIED (L03.90 - ICD-10-CM) ACTIVE 11/10/2023 UNSPECIFIED ATRIAL FIBRILLATION (I48.91 - ICD-10-CM) A CTIVE 11/10/2023 LYMPHEDEMA, NOT ELSEWHERE CLASSIFIED (I89.0 - ICD-10-C M) ACTIVE 11/10/2023 ANXIETY DISORDER, UNSPECIFIED (F41.9 - ICD-10-CM) ACTI VE 11/10/2023 MAJOR DEPRESSIVE DISORDER, R ECURRENT, IN FULL REMISSION (F33.42 - ICD-10-CM) ACTIVE 11/10/2023 OTHER ACUTE AND SUBACUTE RES PIRATORY CONDITIONS DUE TO CHEMICALS, GASES, FUMES AND VAPORS (J68.3 - ICD-10-CM) ACTIVE 11/09 INSOMNIA, UNSPECIFIED (G47.00 - ICD-10-CM) ACTIVE 11/10/2023 GASTRO-ESOPHAGEAL REFLUX DIS EASE WITHOUT ESOPHAGITIS (K21.9 - ICD-10-CM) ACTIVE 11/10/2023 HYPOTHYROIDISM, UNSPECIFIED (E03.9 - ICD-10-CM) ACTIVE 11/10/2023 IRON DEFICIENCY ANEMIA, UNSPECIFIED (D50.9 - ICD-10-CM ) ACTIVE 11/10/2023 ACIDOSIS, UNSPECIFIED (E87.20 - ICD-10-CM) ACTIVE 11/10/2023 HYPOKALEMIA (E87.6 - ICD-10-CM) ACTIVE 4 Encounters Encounter Performer Performer Role Encounter Diagnoses Location Date Discharge - Discharged to home or self care - [facility] 11/10/2023 11:45 am EDT - 12/13/2023 02:05 pm EDT Immunizations Vaccine Date Influenza TB 2 Step Mantoux Skin Test 11/25/2023 1 2:15 pm EDT TB 2 Step [place]oux Skin Test 11/11/2023 1 1:50 am EDT SARS-COV-2 (COVID-19) 09/12/2023 01:00 a m EST Prevnar 20 09/12/2023 01:00 am EST Social History
--- NOTE | 2024-09-09 11:44 | ED_ITS ---
HPI - General Adult General Chief complaint: Flank Pain Stated complaint: flank pain Time Seen by Provider: 09/09/24 11:36 History of Present Illness HPI narrative: Patient presents to the emergency department via EMS complaining of right flank pain. This pain started yesterday and has become so painful it is hard for her to breathe. EMS gave pain medication enroute which has given some relief. Patient is not normally on oxygen and was found to be 88- 90% on scene. 64-year-old woman presenting to the emergency department with concern of right flank or back area pain. It is pleuritic in nature in also worse with movement. No falls or described. This is atypical pain. It is sharp stabbing. She does have tailbone pain chronically but says this is not the same. No dysuria noted. Did have cough recently and sounds like was given a diagnosis of bronchitis of some form when tested negative a couple of weeks ago for influenza. Was treated regardless for Tamiflu she says. No fever noted. Noting to be hypoxic today on collection with EMS. She is a little short of breath she admits. Underlying history of asthma. Lives in assisted living Noting wrappings on her lower legs, she does report nursing visits a couple of times weekly for re wrapping. She does have a sore on her left leg she reports. Family history positive for mom with gallbladder disease. Related Data Home Medications ?Medication ?Instructions ?Recorded ?Confirmed acetaminophen 325 mg tablet 650 mg PO Q6H PRN 10/27/23 09/09/24 buspirone 10 mg tablet 10 mg PO BID 10/27/23 09/09/24 cetirizine 10 mg tablet 10 mg PO DAILY 10/27/23 09/09/24 cholecalciferol (vitamin D3) 125 125 mcg PO DAILY 10/27/23 09/09/24 mcg (5,000 unit) capsule citalopram 10 mg tablet 10 mg PO DAILY 10/27/23 09/09/24 citalopram 20 mg tablet 20 mg PO DAILY 10/27/23 09/09/24 hydroxyzine HCl 25 mg tablet 25 mg PO TID PRN 10/27/23 09/09/24 ipratropium 0.5 mg-albuterol 3 mg 3 ml inhalation Q6H PRN 10/27/23 09/09/24 (2.5 mg base)/3 mL nebulization soln melatonin 10 mg capsule 10 mg PO HS 10/27/23 09/09/24 omeprazole 40 mg capsule,delayed 40 mg PO DAILY 10/27/23 09/09/24 release taurine 500 mg capsule (Pure 1,000 mg PO DAILY 10/27/23 09/09/24 Taurine) valerian root 500 mg capsule 500 mg PO HS 10/27/23 09/09/24 aspirin 81 mg chewable tablet 1 tab PO DAILY 09/09/24 09/09/24 benzonatate 100 mg capsule 100 mg PO 3XD PRN cough 09/09/24 09/09/24 calcium carbonate (Antacid Ext Str 2 tab PO DAILY 09/09/24 09/09/24 (calcium carb)) celecoxib 100 mg capsule 100 mg PO BID 09/09/24 09/09/24 clotrimazole 1 % topical cream 1 applic topical BID 09/09/24 09/09/24 furosemide 20 mg tablet 20 mg PO QAM 09/09/24 09/09/24 magnesium oxide 400 mg (241.3 mg 400 mg PO HS 09/09/24 09/09/24 magnesium) tablet pseudoephedrine HCl 30 mg tablet 30 mg PO Q6H PRN 09/09/24 09/09/24 silver sulfadiazine 1 % topical 1 applic topical DIRECTED 09/09/24 09/09/24 cream (SSD) sodium chloride 0.65 % nasal spray 2 spray intranasal QID PRN cough 09/09/24 09/09/24 aerosol (Deep Sea Nasal) Previous Rx's ?Medication ?Instructions ?Recorded ferrous sulfate 325 mg (65 mg 325 mg PO DAILY #100 tabs 10/30/23 iron) tablet levothyroxine 150 mcg tablet 150 mcg PO DAILY #30 tabs 10/30/23 (Synthroid) metoprolol succinate 50 mg 50 mg PO DAILY atrial fibrillation 11/02/23 tablet,extended release 24 hr #90 tabs Allergies Allergy/AdvReac Type Severity Reaction Status Date / Time Penicillins Allergy Unknown Verified 09/09/24 15:41 Review of Systems Status of ROS: Reports: 6 or more systems reviewed and unremarkable except as noted in History and below [facility] Medical History (Updated 09/10/24 @ 10:59 by Nataliia Wall MD) Osteoarthritis ?M19.90 - Unspecified osteoarthritis, unspecified site (ICD-10) Cholelithiasis ?K80.20 - Calculus of gallbladder without cholecystitis without obstruction (ICD-10) Morbid obesity ?E66.01 - Morbid (severe) obesity due to excess calories (ICD-10) Atrial fibrillation ?I48.91 - Unspecified atrial fibrillation (ICD-10) ANGELO (obstructive sleep apnea) ?G47.33 - Obstructive sleep apnea (adult) (pediatric) (ICD-10) Asthma ?J45.909 - Unspecified asthma, uncomplicated (ICD-10) Neurofibromatosis, type I (von Recklinghausen's disease) ?Q85.01 - Neurofibromatosis, type 1 (ICD-10) Hypothyroidism ?E03.9 - Hypothyroidism, unspecified (ICD-10) Major depression ?F32.9 - Major depressive disorder, single episode, unspecified (ICD-10) Chronic anxiety ?F41.9 - Anxiety disorder, unspecified (ICD-10) Lymphedema ?I89.0 - Lymphedema, not elsewhere classified (ICD-10) Chronic stasis dermatitis ?I87.2 - Venous insufficiency (chronic) (peripheral) (ICD-10) Surgical History H/O breast biopsy ?Z98.890 - Other specified postprocedural states (ICD-10) Status post excisional biopsy ?Z98.890 - Other specified postprocedural states (ICD-10) Cataract ?H26.9 - Unspecified cataract (ICD-10) Social History Narrative: Lives alone in [place]. 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 Nonsmoker. Drinks weekly. Never . No children. she designates [place] Guo, friend, as emergency contact. She has a Uncle Rene who would also be contacted. Does not drive. What is your current living situation?: I presently have a place to live Problems where you live: no known problems Problems where you live details: n/a In the past 12 months, utilities in danger of being shut off: no In past 12 months, lack of transportation kept you from medical appts, meetings, work, or getting things needed for daily living: yes In the past 12 mos, have been you worried that your food would run out before you had money to buy more?: never true In the past 12 mos, the food you bought just didn't last and you didn't have money to buy more?: never true Highest level of school completed/degree received: some college, no degree Smoking Status: Former smoker Do you use any of these nicotine containing products: None Second hand tobacco smoke exposure: No How often do you have a drink containing alcohol: never AUDIT-C Alcohol total score: 0 Non-prescribed substance use: denies use Caffeine: Yes (soda) How often does anyone, including family, friends and others, physically hurt you : never How often does anyone, including family, friends and others, insult or talk down to you: never How often does anyone, including family, friends and others, threaten you with harm: never How often does anyone, including family, friends and others, scream or curse at you: never service: No Health Related Social Needs: transportation insecurity (Z59.82) Exam Narrative: Exam Narrative: Pleasant. NAD. Mildly labored in her breathing. Nasal cannula in place. Notably overweight. Skin with diffuse nodules consistent with neurofibromatosis. Lower extremities are with some edema and excessive subcutaneous. Wrapped with elastic bandages and gauze. I do not see any weeping staining. I initial exam of not removed all the dressings. She preferred that I would not do this initially. Lungs with congestion in the lower lung malhotra bilaterally. She is on nasal cannula. Heart in regular rate and rhythm. Distant. Abdomen is obese. Is tender in the right upper quadrant area generally. Into the epigastrium little bit as well. Further examination of the back with reproducible pain to palpation in the left mid back. Const: Vital Signs, click to edit/add: Vital Signs - 24 hr 09/09/24 12:02 09/09/24 12:36 09/09/24 13:05 Pulse Rate 62 63 65 Respiratory Rate 22 Blood Pressure 117/73 156/78 H Pulse Oximetry 94 93 95 Oxygen Delivery Me thod Nasal Cannula Nasal Cannula Nasal Cannula Oxygen Flow Rate 3 3 3 09/09/24 13:32 09/09/24 13:33 09/09/24 14:45 Pulse Rate 65 65 73 Respiratory Rate 20 24 20 Blood Pressure 134/79 Pulse Oximetry 93 94 89 Oxygen Delivery Me thod Nasal Cannula Room Air Oxygen Flow Rate 3 09/09/24 15:00 09/09/24 15:36 09/09/24 16:02 Pulse Rate 66 68 65 Respiratory Rate 22 24 20 Blood Pressure 153/79 H 143/75 H Pulse Oximetry 92 93 94 Oxygen Delivery Me thod Nasal Cannula Nasal Cannula Oxygen Flow Rate 3 3 Documenting provider has reviewed patient's vital signs: yes Course Vital Signs Vital signs: Initial Vital Signs Temperature 98.2 F 09/09/24 11:32 Temperature Source Temporal Artery Scan 09/09/24 11:32 Pulse Rate 67 09/09/24 11:32 Pulse Rhythm Regular 09/09/24 11:32 Pulse Strength 3+ Normal 09/09/24 11:32 Respiratory Rate 20 09/09/24 11:32 Blood Pressure 114/74 09/09/24 11:32 Blood Pressure Mean 87 09/09/24 11:32 Blood Pressure Position Sitting 09/09/24 11:32 Pulse Oximetry 96 09/09/24 11:32 Oxygen Delivery Method Nasal Cannula 09/09/24 11:32 Oxygen Flow Rate 3 09/09/24 11:32 Vital Signs Temperature 98.2 F 09/09/24 11:32 Pulse Rate 67 09/09/24 11:32 Respiratory Rate 20 09/09/24 11:32 Blood Pressure 114/74 09/09/24 11:32 Pulse Oximetry 96 09/09/24 11:32 Oxygen Delivery Method Nasal Cannula 09/09/24 11:32 Oxygen Flow Rate 3 09/09/24 11:32 Temperature 98.3 F 09/10/24 08:17 Pulse Rate 68 09/10/24 08:24 Respiratory Rate 20 09/10/24 08:22 Blood Pressure 134/79 09/10/24 08:17 Pulse Oximetry 89 09/10/24 08:22 Oxygen Delivery Method Room Air 09/10/24 08:22 Oxygen Flow Rate 0 09/10/24 08:22 Medications Administered Medications: Generic Name Dose Route Start Last Admin Trade Name Freq PRN Reason Stop Dose Admin Acetaminophen 650 - 975 mg 09/09/24 16:42 09/09/24 20:57 Acetaminophen 325 Mg Tablet PO 975 mg Q6H PRN Administration Aspirin 81 mg 09/10/24 09:00 09/10/24 08:30 Aspirin 81 Mg Tab.Chew PO 81 mg DAILY IRLANDA Administration Buspirone HCl 10 mg 09/09/24 21:00 09/10/24 08:30 Buspirone 10 Mg Tablet PO 10 mg BID IRLANDA Administration Celecoxib 100 mg 09/09/24 21:00 09/10/24 09:02 Celecoxib 100 Mg Capsule PO 100 mg BID IRLANDA Administration Cetirizine HCl 10 mg 09/10/24 09:00 09/10/24 08:30 Cetirizine Hcl 10 Mg Tablet PO 10 mg DAILY IRLANDA Administration Citalopram Hydrobromide 30 mg 09/10/24 09:00 09/10/24 08:30 Citalopram Hydrobromide 20 Mg Tablet PO 30 mg DAILY IRLANDA Administration Clotrimazole 1 applic 09/09/24 21:00 09/10/24 08:31 Clotrimazole 1 % Cream TOPICAL 1 applic BID IRLANDA Administration Enoxaparin Sodium 40 mg 09/09/24 21:00 09/09/24 20:59 Enoxaparin 40 Mg/0.4 Ml Inj SUBCUT 40 mg HS IRLANDA Administration Ferrous Sulfate 325 mg 09/10/24 08:00 09/10/24 08:28 Ferrous Sulfate 325 Mg Tablet PO 325 mg DAILYWM IRLANDA Administration Furosemide 40 mg 09/10/24 09:00 09/10/24 08:30 Furosemide 10 Mg/Ml Inj IVP 40 mg BID@0900,1400 IRLANDA Administration Hydroxyzine Pamoate 25 mg 09/09/24 17:14 09/09/24 20:57 Hydroxyzine Pamoate 25 Mg Capsule PO 25 mg TID PRN Administration Levothyroxine Sodium 150 mcg 09/10/24 07:00 09/10/24 06:30 Levothyroxine 75 Mcg Tablet PO 150 mcg DAILY@0700 IRLANDA Administration Lidocaine 1 patch 09/09/24 20:00 09/09/24 20:58 Lidocaine 5% Patch TRANSDERMA 1 patch Q24H IRLANDA Administration Protocol Magnesium Oxide 400 mg 09/09/24 21:00 09/09/24 20:57 Magnesium Oxide 400 Mg Tablet PO 400 mg HS IRLANDA Administration Melatonin 9 mg 09/09/24 21:00 09/09/24 20:57 Melatonin 3 Mg Tablet PO 9 mg HS IRLANDA Administration Metoprolol Succinate 50 mg 09/10/24 09:00 09/10/24 08:30 Metoprolol Succinate (Xl) 50 Mg Tab PO 50 mg DAILY IRLANDA Administration Omeprazole 40 mg 09/10/24 06:00 09/10/24 06:30 Omeprazole [address] PO 40 mg DAILY@0600 IRLANDA Administration Sodium Chloride 5 ml 09/09/24 16:42 09/10/24 08:31 Sodium Chloride 0.9 % (Flush) 10 Ml Syringe IVF 5 ml .FLUSH PRN Administration Sodium Chloride 5 ml 09/09/24 21:00 09/10/24 08:37 Sodium Chloride 0.9 % (Flush) 10 Ml Syringe IVF Not Given BID IRLANDA Sodium Chloride 250 ml 09/09/24 20:55 09/09/24 21:00 0.9 % Sodium Chloride 250 Ml IV 250 ml Q24H PRN Administration Discontinued Medications Generic Name Dose Route Start Last Admin Trade Name Freq PRN Reason Stop Dose Admin Albuterol/Ipratropium 1 neb 09/09/24 12:03 09/09/24 12:39 Iprat-Albut 0.5-2.5 Mg/3 Ml Neb IH 09/09/24 12:04 1 neb ONCE ONE Administration Furosemide 40 mg 09/09/24 13:20 09/09/24 16:02 Furosemide 10 Mg/Ml Inj IVP 09/09/24 13:21 40 mg ONCE ONE Administration Magnesium Sulfate 2 gm in 50 mls @ 25 mls/hr 09/09/24 19:58 09/10/24 00:49 Magnesium Iv IVPB 09/09/24 21:57 Infused ONCE ONE Infusion Medical Decision Making MDM Narrative Medical decision making narrative: Certainly could be spontaneous rib fracture. Could have developed a pneumonia or effusion contributing to pain. Pneumothorax perhaps. Does have some musculoskeletal component to this pain. Maybe radiating biliary disease. Urinary tract infection? Less likely cardiac. Pulmonary embolus? Hypoxia likely being contributed to by [place]. Will continue to monitor. Labs to direct further imaging. Chest x-ray independently reviewed by me looks to show some cardiomegaly though this is a portable, and pulmonary congestion/edema. INDICATION: Right lower chest pain and hypoxia COMPARISON: None. TECHNIQUE: PA and lateral 2 view chest. FINDINGS: Lung volumes are moderate. Moderate pulmonary edema. No focal consolidation. No pleural effusion. No pneumothorax. No pneumomediastinum. Cardiomegaly. Mildly widened upper mediastinal contours. Bones: Normal for age. Extensive nodular skin lesions. IMPRESSION: Pulmonary edema. Cardiomegaly. No pleural effusion seen. After DuoNeb, on reauscultation diffusely congested/crepitus. No wheeze. Reproducible area of pain still in the right mid back. Inconsistent pain now to palpation in the abdomen. Back pain I think less likely gallbladder related. Pulmonary edema causing hypoxia? Cough may have contributed to some rib area strain. Labs generally reassuring. Normal white count Pending yet is proBNP and D- dimer. I would have concerns this D-dimer might be elevated in the setting of the higher CRP. In the meantime will begin diuresis with Lasix. She has been to urinate couple of times already however. D-dimer is elevated at nearly 1. Pulmonary edema may well be contributing to his hypoxia but I think warrants CT imaging be sure of no pulmonary embolus - th ere is a history of atrial fibrillation - and can evaluate better this area of soreness in the right mid/low back. There may be a fracture here. Appears to show pulmonary edema without effusion in my independent review of CTA chest. Poor images generally. Radiology over-read below INDICATION: Hypoxia, elevated D-dimer, right mid back pleuritic. TECHNIQUE: CT chest PE was acquired with 95 cc Isovue 370 IV contrast. COMPARISON: X-ray chest September 09, 2024 FINDINGS: Limited assessment secondary to patient`s body habitus and photon starvation artifacts. Heart and vasculature: Poor contrast bolus timing, which limits the evaluation for distal subsegmental pulmonary emboli. No central or proximal pulmonary emboli.. Mild cardiomegaly without pericardial effusion. Thoracic aorta and pulmonary artery are of normal caliber. Minimal atherosclerotic disease of the thoracic aorta. Lungs and pleura: Mild centrilobular and paraseptal emphysema. Patchy scattered ground-glass opacities in bilateral lung malhotra, predominantly in the dependent bibasilar segments Lymph nodes/mediastinum: No mediastinal, hilar, or axillary adenopathy. Upper abdomen: Cholelithiasis without acute cholecystitis. Bones: Multilevel degenerative changes of the spine. IMPRESSION: Suboptimal contrast bolus timing, limits the assessment for distal subsegmental pulmonary emboli. No central or proximal pulmonary embolism. Scattered patchy ground-glass opacities in bilateral lung malhotra, with interlobular septal thickening, concerning for pulmonary edema in the appropriate clinical settings. Cholelithiasis. Please note that all CT scans at this facility use dose modulation, iterative reconstruction, and/or weight-based dosing when appropriate to reduce radiation dose to as low as reasonably achievable. Will need to be admitted for persistent hypoxia and had likely further diuresis in the setting of deconditioning with pain. Have discussed with hospitalist who is thankfully accepting. Medical Records Medical records reviewed: Yes I reviewed the patient's medical records Lab Data Lab results reviewed: Yes I reviewed the patient's lab results Labs: Lab Results 09/09/24 09/09/24 09/09/24 Range/Units 11:40 12:09 12:12 WBC 8.71 (4.50-11.00) K/uL RBC 5.00 (4.00-5.20) m/uL Hgb 14.0 (12.0-16.0) gm/dL Hct 45.3 (33.0-51.0) % MCV 91 (80-100) fL MCH 28 (26-34) pg MCHC 31 L (32-36) gm/dL RDW Coeff of [place] 14.7 (11.5-15.5) % Plt Count 201 (140-440) K/uL Neut % (Auto) 77.3 H (42.0-72.0) % Lymph % (Auto) 7.9 L (20-44) % [place] % (Auto) 9.6 (0.0-11.0) % Eos % (Auto) 4.2 (0.0-7.0) % Baso % (Auto) 0.5 (0.0-3.0) % Neut # (Auto) 6.70 (1.7-7.0) K/uL Lymph # (Auto) 0.70 L (0.90-2.90) K/uL [place] # (Auto) 0.80 (0.00-0.90) K/UL Eos # (Auto) 0.37 (0.00-0.50) K/uL Baso # (Auto) 0.04 (0.00-0.30) K/uL Abs Immat Gran (auto) 0.04 (0.00-0.30) K/uL Imm/Tot Granulo (auto) 0.5 % D-Dimer Quant (PE/DVT) 0.92 H (0.00-0.50) ug/ml Sodium 138 (135-149) mmol/L Potassium 4.1 (3.6-5.1) mmol/L Chloride 102 (96-114) mmol/L Carbon Dioxide 30 (20-32) mmol/L Anion Gap 6 L (7-15) mEq/L BUN 28 (7-30) mg/dL Creatinine 1.0 (0.5-1.5) mg/dL Estimated GFR 62 ml/min Glucose 93 (60-115) mg/dL Calcium 9.2 (8.4-10.6) mg/dL Magnesium 1.7 (1.5-2.6) mg/dL Total Bilirubin 0.6 (0.1-1.5) mg/dL Direct Bilirubin 0.3 (0.0-0.5) mg/dL AST 22 (12-35) U/L ALT 17 (4-35) U/L Alkaline Phosphatase 120 (40-150) U/L Troponin I < 0.01 L (0.01-0.04) ng/mL C-Reactive Protein 5.6 H (0.5-1.0) mg/dL NT-Pro-B Natriuret Pep 486 pg/mL Total Protein 7.4 (6.0-8.3) g/dL Albumin 4.2 (3.3-5.0) g/dL Procalcitonin 0.07 (<0.50) ng/mL TSH 15.900 H (0.270-4.20) uIU/mL Urine Color Yellow (Yellow) Urine Appearance Clear (Clear) Urine pH 5.5 (5.0-8.5) Ur Specific [place] 1.010 (1.000-1.030) Urine Protein Negative (Negative) Urine Glucose (UA) Negative (Negative) Urine Ketones Negative (Negative) Urine Blood Negative (Negative) Urine Nitrite Negative (Negative) Urine Bilirubin Negative (Negative) Urine Urobilinogen 0.2 (0.2-1.0) Ur Leukocyte Esterase Negative (Negative) Urine RBC 0-2 (0-2) Urine WBC 0-2 (0-5) Ur Squamous Epith Cells Few (None-Few) Amorphous Sediment Few A (None) Urine Bacteria Few A (None) SARS-CoV-2 (PCR) Negative SARS-CoV-2 (Negative) Influenza Type A (PCR) Negative PCR FLU A (Negative) Influenza Type B (PCR) Negative PCR FLU B (Negative) RSV (PCR) Negative PCR RSV (Negative) Lab Acknowledgement Test Added 09/09/24 Range/Units 12:12 WBC (4.50-11.00) K/uL RBC (4.00-5.20) m/uL Hgb (12.0-16.0) gm/dL Hct (33.0-51.0) % MCV (80-100) fL MCH (26-34) pg MCHC (32-36) gm/dL RDW Coeff of Lynn (11.5-15.5) % Plt Count (140-440) K/uL Neut % (Auto) (42.0-72.0) % Lymph % (Auto) (20-44) % [place] % (Auto) (0.0-11.0) % Eos % (Auto) (0.0-7.0) % Baso % (Auto) (0.0-3.0) % Neut # (Auto) (1.7-7.0) K/uL Lymph # (Auto) (0.90-2.90) K/uL [place] # (Auto) (0.00-0.90) K/UL Eos # (Auto) (0.00-0.50) K/uL Baso # (Auto) (0.00-0.30) K/uL Abs Immat Gran (auto) (0.00-0.30) K/uL Imm/Tot Granulo (auto) % D-Dimer Quant (PE/DVT) (0.00-0.50) ug/ml Sodium (135-149) mmol/L Potassium (3.6-5.1) mmol/L Chloride (96-114) mmol/L Carbon Dioxide (20-32) mmol/L Anion Gap (7-15) mEq/L BUN (7-30) mg/dL Creatinine (0.5-1.5) mg/dL Estimated GFR ml/min Glucose (60-115) mg/dL Calcium (8.4-10.6) mg/dL Magnesium (1.5-2.6) mg/dL Total Bilirubin (0.1-1.5) mg/dL Direct Bilirubin (0.0-0.5) mg/dL AST (12-35) U/L ALT (4-35) U/L Alkaline Phosphatase (40-150) U/L Troponin I (0.01-0.04) ng/mL C-Reactive Protein (0.5-1.0) mg/dL NT-Pro-B Natriuret Pep pg/mL Total Protein (6.0-8.3) g/dL Albumin (3.3-5.0) g/dL Procalcitonin (<0.50) ng/mL TSH (0.270-4.20) uIU/mL Urine Color (Yellow) Urine Appearance (Clear) Urine pH (5.0-8.5) Ur Specific [place] (1.000-1.030) Urine Protein (Negative) Urine Glucose (UA) (Negative) Urine Ketones (Negative) Urine Blood (Negative) Urine Nitrite (Negative) Urine Bilirubin (Negative) Urine Urobilinogen (0.2-1.0) Ur Leukocyte Esterase (Negative) Urine RBC (0-2) Urine WBC (0-5) Ur Squamous Epith Cells (None-Few) Amorphous Sediment (None) Urine Bacteria (None) SARS-CoV-2 (PCR) (Negative) Influenza Type A (PCR) (Negative) Influenza Type B (PCR) (Negative) RSV (PCR) (Negative) Lab Acknowledgement Test Added Discharge Plan Discharge Clinical Impression: Hypoxia, Pulmonary edema, Chest wall pain Patient Disposition: Admitted As Observation Condition: Stable
[2024-09-09 11:47] LABS: Appearance Urine Clear (Clear); Bilirubin Urine Negative (Negative); Blood Urine Negative (Negative); Color Urine Yellow (Yellow); Glucose Urine Negative (Negative); Ketones Urine Negative (Negative); Leukocyte Esterase Urine Negative (Negative); Nitrite Urine Negative (Negative); Protein Urine Negative (Negative); Urobilinogen Urine 0.2 (0.2-1.0); pH Urine 5.5 (5.0-8.5)
[2024-09-09 11:56] LABS: Amorphous Sediment Urine Few; Bacteria Urine Few; RBC Urine 0-2 (0-2); Squamous Epithelial Cell Urine Few (None-Few); WBC Urine 0-2 (0-5)
--- NOTE | 2024-09-09 12:03 | CRLHL7_ITS ---
For Patients: As a result of the Century Cures Act, medical imaging exams and procedure reports are released immediately into your electronic medical record. You may view this report before your referring provider. If you have questions, please contact your health care provider. INDICATION: Right lower chest pain and hypoxia COMPARISON: None. TECHNIQUE: PA and lateral 2 view chest. FINDINGS: Lung volumes are moderate. Moderate pulmonary edema. No focal consolidation. No pleural effusion. No pneumothorax. No pneumomediastinum. Cardiomegaly. Mildly widened upper mediastinal contours. Bones: Normal for age. Extensive nodular skin lesions. IMPRESSION: Pulmonary edema. Cardiomegaly. No pleural effusion seen. Dictated by Nancy Howard MD @ 09/09/2024 12:51:01 PM (Electronically Signed)
--- OUTSIDE RECORDS SUMMARY | 2024-09-09 12:04 | XMS_ITS | Clinical Summary ---
Author Organization [employer] [facility] [employer] Address [place], [place] [address] Care Team Providers Care Technology Administrator Name Role Phone Lobo Burt Unavailable [phone] Services, [facility] Physician Primary Care Provi sonam Allergies Active Allergy Reactions Criticality Noted Date [...] bed. Length of need 99 months. 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 4 Active wheelchairIndicati ons:Morbid obesity (HC),Osteoarthriti s [...] Type Department Care Team Description 08/23/2024 Telephone [facility] [address] [place] [address] Kylah Beltran MD Form (physician's order) 08/12/2024 Telephone [facility] [address] [place] [address] Kylah Beltran MD Form (PHYSICIAN ORDER) 08/09/2024 Telephone [facility] [address] [place] [address] Kylah Beltran MD Form (HHC & POC) 08/07/2024 Telephone [facility] [address] [place] [address] Kylah Beltran MD Form 08/05/2024 Telephone [place] [address] [place] [address] Kylah Beltran MD Form (PHYSICIAN ORDER) 07/22/2024 Telephone [place] [address] [place] [address] Kylah Beltran MD Form (ORDERS) 06/17/2024 Telephone [place] [address] [place] [address] Kylah Beltran MD Form (PHYSICIAN ORDER) 06/12/2024 Telephone [place] [address] [place] [address] Kylah Beltran MD Form (HHC & POC) [...] on file Legal Sex Female 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 Gender Identity Not on file Sexual Orientation [...] Cristina MD Medical Devices Implanted Type Area Conductor/Brakeman Device Identifier Shelf Expiration Date Model / Serial / Lot Iol Kingsbury +20.5 [employer]ecnis Zcb00 - [id number] Implanted:Qty: 1 on 05/20/2020 by Shai Patel MD at [facility] Opthalmology Implants Right: Eye [employer] 02/10/2024 ZCB00 20.5# / [id number] / Iol Kingsbury +21.5 [employer]ecnis Zcb00 - [id number] Implanted:Qty: 1 on 06/03/2020 by Shai Patel MD at [facility] Left: Eye [employer] 04/04/2024 ZCB00 21.50# / [id number] / Procedures Procedure Name Priority Date/Time Associated Diagnosis Comments COLONOSCOPY SCREENING Routine 10/30/2023 12:00 AM CDT Screen for colon cancer LIPID PANEL W REFLEX MEASURED LDL Routine 09/12/2023 2:03 PM SQL PROGRAMMER Screening, lipid ANTI HCV Routine 06/04/2019 12:54 PM SQL PROGRAMMER Need for hepatitis C screening test XR MAMMO BILAT SCREENING Routine 06/14/2018 3:59 PM SQL PROGRAMMER Encounter for screening mammogram for malignant neoplasm of breast from Last 3 Months or Most Recently Relevant to Health Maintenance Results * COLONOSCOPY SCREENING (10/30/2023 12:00 AM CDT) Kylah Beltran MD GI PROCEDURE ORD Final Result * LIPID PANEL W REFLEX MEASURED LDL (09/12/2023 2:03 PM SQL PROGRAMMER) CHOLESTEROL,TOTAL 143 100 - 199 mg/dL 09/13/2023 4:33 AM SQL PROGRAMMER [facility] Comment: Cholesterol, Total Reference Ranges Desirable <200 mg/dL Borderline 200-239 mg/dL High >=240 mg/dL TRIGLYCERIDES 108 <150 mg/dL 09/13/2023 4:33 AM SQL PROGRAMMER [facility] HDL CHOLESTEROL 61 >40 mg/dL 4:33 AM SQL PROGRAMMER [facility] NON-HDL CHOLESTEROL 82 <145 mg/dl 09/13/2023 4:33 AM SQL PROGRAMMER [facility] CHOL/HDL RATIO 2.34 <4.50 09/13/2023 4:33 AM SQL PROGRAMMER [facility] LDL CHOLESTEROL 60 <=130 mg/dL 09/13/2023 4:33 AM SQL PROGRAMMER [facility] VLDL CHOLESTEROL 22 <=30 mg/dL 09/13/2023 4:33 AM SQL PROGRAMMER [facility] PROVIDER ORDERED STATUS FASTING 09/13/2023 4:33 AM SQL PROGRAMMER [facility] [employer] Blood BLOOD SPECIMEN / Unknown Venipuncture / Unknown 09/12/2023 2:03 PM SQL PROGRAMMER 09/12/2023 2:03 PM SQL PROGRAMMER Kylah Beltran MD CHEMISTRY Final R esult [facility] [address] [place] [address], [place] * ANTI HCV (06/04/2019 12:54 PM SQL PROGRAMMER) HEPATITIS C ANTIBODY Non-React chelsy Non-React chelsy 06/04/2019 6:49 PM SQL PROGRAMMER [facility] Comment:Antibodies to HCV no t detected; does not exclude the possibility of exposure to HCV. Blood BLOOD SPECIMEN / Unknown Butterfly / Unknown 06/04/2019 12:54 PM SQL PROGRAMMER 06/04/2019 12:54 PM SQL PROGRAMMER us Kylah Beltran MD SEND OUTS Final R esult Performing Organization Address [facility]/ZIP Co de Phone Number [facility] [address] [place] [address], [place] * XR MAMMO BILAT SCREENING (06/14/2018 3:59 PM SQL PROGRAMMER) Anatomical Region Laterality Modality BREASTS, Breast Left, Breast Right Bilateral Mammography Impressions 06/15/2018 12:35 PM SQL PROGRAMMER There is no radiographic evidence for malignancy. Recommend annual mammograms. A lay language report of this examination will be provided to the patient. MAMMOGRAM ASSESSMENT: ACR 2 Benign Narrative 06/15/2018 12:35 PM SQL PROGRAMMER XR MAMMO BILAT SCREENING [[id number]] CLINICAL HISTORY: This is an asymptomatic 58 y.o. patient. INDICATION FOR EXAM: Mammogram Screening. TECHNIQUE: CC & MLO views were obtained. This digital study was evaluated with the assistance of Computer-Aided Detection. COMPARISON FILMS: Yes 04/26/17 [facility] 10/20/11 [facility] FINDINGS: Mammographically, the breast tissue has scattered fibroglandular densities. No suspicious masses or microcalcifications. Benign appearing calcifications within both breasts. 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 us Kylah Beltran MD MAMMO Final R esult from Last 3 Months or Most Recently Relevant to Health Maintenance Insurance MEDICARE PB ONLY MEDICARE PART A HB ONLY MEDICARE PART B HB ONLY [facility] Advance Directives Documents on File Type Date Recorded Patient Extension Supervisor Marcio OLIVAREZ 08/17/2022 * Full Code (Latest [...] 7:52 AM 02/19/2015 3:08 PM Care Teams Technology Administrator Relationship Specialty Start Date End Date Services, [facility] Physician [address] [place], [place] [id number] PCP - General 03/05/24 Lobo Burt [facility] [address] [place], [place] [id number] Occupational Therapy 11/14/23
[2024-09-09 12:29] LABS: Basophils Absolute Auto 0.04 K/uL (0.00-0.30); Basophils Percent Auto 0.5 % (0.0-3.0); Eosinophils Absolute Auto 0.37 K/uL (0.00-0.50); Eosinophils Percent Auto 4.2 % (0.0-7.0); Hematocrit 45.3 % (33.0-51.0); Immature Granulocytes Abs Auto 0.04 K/uL (0.00-0.30); Immature Granulocytes Pct Auto 0.5 %; Lymphocytes Percent Auto 7.9 % (20-44); Mean Corpuscular HGB Conc 31 gm/dL (32-36); Mean Corpuscular Hemoglobin 28 pg (26-34); Mean Corpuscular Volume 91 fL (80-100); Monocytes Percent Auto 9.6 % (0.0-11.0); Neutrophils Percent Auto 77.3 % (42.0-72.0); Platelet Count* 201 K/uL (140-440); RDW Coefficient of Variation % 14.7 % (11.5-15.5); White Blood Count* 8.71 K/uL (4.50-11.00)
[2024-09-09 12:36] LABS: Slide Review Reflex No
[2024-09-09] MEDS: IPRAT-ALBUT 0.5-2.5 MG/3 ML NEB 1 NEB IH (12:39)
[2024-09-09 12:41] LABS: Albumin* 4.2 g/dL (3.3-5.0); Chloride* 102 mmol/L (96-114)
[2024-09-09 12:42] LABS: Potassium* 4.1 mmol/L (3.6-5.1); Sodium* 138 mmol/L (135-149)
[2024-09-09 12:44] LABS: Estimated Glomerular Filt Rate 62 ml/min
[2024-09-09 12:45] LABS: Alanine Aminotransferase* 17 U/L (4-35); Alkaline Phosphatase* 120 U/L (40-150); Anion Gap 6 mEq/L (7-15); Aspartate Amino Transferase* 22 U/L (12-35); Bilirubin Direct* 0.3 mg/dL (0.0-0.5); Bilirubin Total* 0.6 mg/dL (0.1-1.5); Blood Urea Nitrogen* 28 mg/dL (7-30); Calcium* 9.2 mg/dL (8.4-10.6); Carbon Dioxide* 30 mmol/L (20-32); Glucose* 93 mg/dL (60-115); Total Protein* 7.4 g/dL (6.0-8.3)
[2024-09-09 12:47] LABS: C Reactive Protein* 5.6 mg/dL (0.5-1.0)
[2024-09-09 13:00] LABS: PCR FLU A Negative PCR FLU A (Negative); PCR FLU B Negative PCR FLU B (Negative); PCR RSV Negative PCR RSV (Negative); SARS PCR* Negative SARS-CoV-2 (Negative)
[2024-09-09 13:17] LABS: D Dimer Quantitative* 0.92 ug/ml (0.00-0.50)
--- NOTE | 2024-09-09 13:22 | CRLHL7_ITS ---
For Patients: As a result of the Century Cures Act, medical imaging exams and procedure reports are released immediately into your electronic medical record. You may view this report before your referring provider. If you have questions, please contact your health care provider. INDICATION: Hypoxia, elevated D-dimer, right mid back pleuritic. TECHNIQUE: CT chest PE was acquired with 95 cc Isovue 370 IV contrast. COMPARISON: X-ray chest September 09, 2024 FINDINGS: Limited assessment secondary to patient`s body habitus and photon starvation artifacts. Heart and vasculature: Poor contrast bolus timing, which limits the evaluation for distal subsegmental pulmonary emboli. No central or proximal pulmonary emboli.. Mild cardiomegaly without pericardial effusion. Thoracic aorta and pulmonary artery are of normal caliber. Minimal atherosclerotic disease of the thoracic aorta. Lungs and pleura: Mild centrilobular and paraseptal emphysema. Patchy scattered ground-glass opacities in bilateral lung malhotra, predominantly in the dependent bibasilar segments Lymph nodes/mediastinum: No mediastinal, hilar, or axillary adenopathy. Upper abdomen: Cholelithiasis without acute cholecystitis. Bones: Multilevel degenerative changes of the spine. IMPRESSION: Suboptimal contrast bolus timing, limits the assessment for distal subsegmental pulmonary emboli. No central or proximal pulmonary embolism. Scattered patchy ground-glass opacities in bilateral lung malhotra, with interlobular septal thickening, concerning for pulmonary edema in the appropriate clinical settings. Cholelithiasis. Please note that all CT scans at this facility use dose modulation, iterative reconstruction, and/or weight-based dosing when appropriate to reduce radiation dose to as low as reasonably achievable. Dictated by Fermin Alvarado MD @ 09/09/2024 3:04:11 PM (Electronically Signed)
[2024-09-09 13:37] LABS: Troponin I* < 0.01 ng/mL (0.01-0.04)
[2024-09-09 13:38] LABS: NT Pro B Type NatriureticPept* 486 pg/mL
[2024-09-09] MEDS: FUROSEMIDE 10 MG/ML inj 40 MG IVP (16:02)
--- NOTE | 2024-09-09 16:11 | PM.IMHP1 ---
Hospitalist- H&P: HPI History of Present Illness Date Seen: 09/09/24 Chief complaint: flank pain Narrative: Maggy Carroll is a 64 year old female past medical history significant for morbid obesity, asthma, untreated ANGELO, atrial fibrillation not on chronic anticoagulation, lymphedema, chronic venous stasis, hypothyroidism, neurofibromatosis type 1 is admitted to the medical floor from the ED with hypoxia in setting of acute pulmonary edema. Patient reports onset of right posterior ribcage pain yesterday along with increased shortness of breath. Reports pain is worse with a deep breath or movement. Improves with rest. Wonders if this resulted from a recent influenza like illness she had approximately 1 week ago. A triple swab test was negative at that time but she was placed on Tamiflu. Cough has since improved. Reports feeling more short of breath over the last 24 hours. Feels a fullness in her chest. Otherwise denies chest pain or tightness. Denies fevers or chills. Has not had any nausea or vomiting. No change in stools or urine output. Denies UTI symptoms. No new headaches outside of her chronic occasional headaches. Denies dizziness. ED reports EMR noted oxygen saturations 86-89% on seen. Patient reports normal saturations with activity are in the upper 80s. She also reports quickly recovering to the low 90s at rest. Her normal saturations are around 94%. She does not use oxygen at home. She had a sleep study done years ago, noncompliant with a CPAP, and has not able to get in for a new sleep study secondary to transportation issues. Resides at [facility] in [place]. Quit smoking 25 years ago. Quit drinking alcohol 1 year ago. PCP is Dr. Kylah Beltran. [facility] 11/2023 reviewed, DNR/DNI. Review of Systems Narrative: REVIEW OF SYSTEMS: Complete review of systems performed and negative unless otherwise stated in HPI or below. [facility] Medical History (Updated 09/09/24 @ 17:45 by Galina Santoro PA-C) Osteoarthritis ?M19.90 - Unspecified osteoarthritis, unspecified site (ICD-10) Cholelithiasis ?K80.20 - Calculus of gallbladder without cholecystitis without obstruction (ICD-10) Morbid obesity ?E66.01 - Morbid (severe) obesity due to excess calories (ICD-10) Atrial fibrillation ?I48.91 - Unspecified atrial fibrillation (ICD-10) ANGELO (obstructive sleep apnea) ?G47.33 - Obstructive sleep apnea (adult) (pediatric) (ICD-10) Asthma ?J45.909 - Unspecified asthma, uncomplicated (ICD-10) Neurofibromatosis, type I (von Recklinghausen's disease) ?Q85.01 - Neurofibromatosis, type 1 (ICD-10) Hypothyroidism ?E03.9 - Hypothyroidism, unspecified (ICD-10) Major depression ?F32.9 - Major depressive disorder, single episode, unspecified (ICD-10) Chronic anxiety ?F41.9 - Anxiety disorder, unspecified (ICD-10) Lymphedema ?I89.0 - Lymphedema, not elsewhere classified (ICD-10) Chronic stasis dermatitis ?I87.2 - Venous insufficiency (chronic) (peripheral) (ICD-10) Surgical History H/O breast biopsy ?Z98.890 - Other specified postprocedural states (ICD-10) Status post excisional biopsy ?Z98.890 - Other specified postprocedural states (ICD-10) Cataract ?H26.9 - Unspecified cataract (ICD-10) Social History Narrative: Lives alone in [place]. 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 Nonsmoker. Drinks weekly. Never . No children. she designates Brooklynze Guo, friend, as emergency contact. She has a Uncle Rene who would also be contacted. Does not drive. What is your current living situation?: I presently have a place to live Problems where you live: no known problems Problems where you live details: n/a In the past 12 months, utilities in danger of being shut off: no In past 12 months, lack of transportation kept you from medical appts, meetings, work, or getting things needed for daily living: no In the past 12 mos, have been you worried that your food would run out before you had money to buy more?: never true In the past 12 mos, the food you bought just didn't last and you didn't have money to buy more?: never true Highest level of school completed/degree received: some college, no degree Smoking Status: Former smoker How often do you have a drink containing alcohol: never How many standard drinks containing alcohol do you have on a typical day: 3 or 4 How often do you have six or more drinks on one occasion: Monthly AUDIT-C Alcohol total score: 3 Non-prescribed substance use: denies use Caffeine: Yes (soda) How often does anyone, including family, friends and others, physically hurt you: never How often does anyone, including family, friends and others, insult or talk down to you: never How often does anyone, including family, friends and others, threaten you with harm: never How often does anyone, including family, friends and others, scream or curse at you: never service: No Meds Home Medications and Allergies Home Medications ?Medication ?Instructions ?Recorded ?Confirmed ?Type acetaminophen 325 mg tablet 650 mg PO Q6H PRN 10/27/23 09/09/24 History buspirone 10 mg tablet 10 mg PO BID 10/27/23 09/09/24 History cetirizine 10 mg tablet 10 mg PO DAILY 10/27/23 09/09/24 History cholecalciferol (vitamin D3) 125 125 mcg PO DAILY 10/27/23 09/09/24 History mcg (5,000 unit) capsule citalopram 10 mg tablet 10 mg PO DAILY 10/27/23 09/09/24 History citalopram 20 mg tablet 20 mg PO DAILY 10/27/23 09/09/24 History hydroxyzine HCl 25 mg tablet 25 mg PO TID PRN 10/27/23 09/09/24 History ipratropium 0.5 mg-albuterol 3 mg 3 ml inhalation Q6H PRN 10/27/23 09/09/24 History (2.5 mg base)/3 mL nebulization soln melatonin 10 mg capsule 10 mg PO HS 10/27/23 09/09/24 History omeprazole 40 mg capsule,delayed 40 mg PO DAILY 10/27/23 09/09/24 History release taurine 500 mg capsule (Pure 1,000 mg PO DAILY 10/27/23 09/09/24 History Taurine) valerian root 500 mg capsule 500 mg PO HS 10/27/23 09/09/24 History aspirin 81 mg chewable tablet 1 tab PO DAILY 09/09/24 09/09/24 History benzonatate 100 mg capsule 100 mg PO 3XD PRN cough 09/09/24 09/09/24 History calcium carbonate (Antacid Ext Str 2 tab PO DAILY 09/09/24 09/09/24 History (calcium carb)) celecoxib 100 mg capsule 100 mg PO BID 09/09/24 09/09/24 History clotrimazole 1 % topical cream 1 applic topical BID 09/09/24 09/09/24 History furosemide 20 mg tablet 20 mg PO QAM 09/09/24 09/09/24 History magnesium oxide 400 mg (241.3 mg 400 mg PO HS 09/09/24 09/09/24 History magnesium) tablet pseudoephedrine HCl 30 mg tablet 30 mg PO Q6H PRN 09/09/24 09/09/24 History silver sulfadiazine 1 % topical 1 applic topical DIRECTED 09/09/24 09/09/24 History cream (SSD) sodium chloride 0.65 % nasal spray 2 spray intranasal QID PRN cough 09/09/24 09/09/24 History aerosol (Deep Sea Nasal) Allergies Allergy/AdvReac Type Severity Reaction Status Date / Time Penicillins Allergy Unknown Verified 09/09/24 15:41 Exam Narrative: Exam Narrative: PHYSICAL EXAM General: Pleasant, conversant, NAD HEENT: Normocephalic, atraumatic, sclera white, EOMI, oral mucosa moist Cardiovascular: RRR, S1S2. Pulmonary: CTA bilaterally without rhonchi, rales, expiratory wheezes Abdominal: Soft, nondistended, NTTP Neurological: Alert, answering questions appropriately, cranial nerves intact, no focal findings Extremities: Chronic lymphedema changes noted. AROMI. Neurovascularly intact. Lower extremity wraps in place, no streaking or redness noted Skin: Warm, dry. Neurofibromatosis. No acute rash over posterior chest wall. Const: Vital Signs, click to edit/add: Vital Signs - 24 hr 09/09/24 11:32 09/09/24 11:53 09/09/24 12:02 Temperature 98.2 F Pulse Rate 62 Pulse Rate [Right Pulse Oximeter] 67 Respiratory Rate 20 Blood Pressure 117/73 Blood Pressure [Ri ght Upper Arm] 114/74 Pulse Oximetry 96 89 94 Oxygen Delivery Me thod Nasal Cannula Nasal Cannula Nasal Cannula Oxygen Flow Rate 3 3 3 09/09/24 12:36 09/09/24 13:05 09/09/24 13:32 Temperature Pulse Rate 63 65 65 Pulse Rate [Right Pulse Oximeter] Respiratory Rate 22 20 Blood Pressure 156/78 H 134/79 Blood Pressure [Ri ght Upper Arm] Pulse Oximetry 93 95 93 Oxygen Delivery Me thod Nasal Cannula Nasal Cannula Nasal Cannula Oxygen Flow Rate 3 3 3 09/09/24 13:33 09/09/24 14:45 09/09/24 15:00 Temperature Pulse Rate 65 73 66 Pulse Rate [Right Pulse Oximeter] Respiratory Rate 24 20 22 Blood Pressure Blood Pressure [Ri ght Upper Arm] Pulse Oximetry 94 89 92 Oxygen Delivery Me thod Room Air Nasal Cannula Oxygen Flow Rate 3 Hospitalist - H&P: Result Labs Labs: Short CBC 09/09/24 Range/Units 12:12 WBC 8.71 (4.50-11.00) K/uL Hgb 14.0 (12.0-16.0) gm/dL Hct 45.3 (33.0-51.0) % Plt Count 201 (140-440) K/uL BMP 09/09/24 12:12 Sodium 138 Potassium 4.1 Chloride 102 Carbon Dioxide 30 BUN 28 Creatinine 1.0 Glucose 93 Calcium 9.2 Cardiac Enzymes 09/09/24 Range/Units 12:12 Troponin I < 0.01 L (0.01-0.04) ng/mL Liver Function 09/09/24 Range/Units 12:12 Total Bilirubin 0.6 (0.1-1.5) mg/dL Direct Bilirubin 0.3 (0.0-0.5) mg/dL AST 22 (12-35) U/L ALT 17 (4-35) U/L Alkaline Phosphatase 120 (40-150) U/L Albumin 4.2 (3.3-5.0) g/dL Urine 09/09/24 Range/Units 11:40 Urine Color Yellow (Yellow) Urine Appearance Clear (Clear) Urine pH 5.5 (5.0-8.5) Ur Specific [place] 1.010 (1.000-1.030) Urine Protein Negative (Negative) Urine Glucose (UA) Negative (Negative) Imaging Chest x-ray: Attestation: I have reviewed the pertinent imaging results. Radiologist's impression: Lung volumes are moderate. Moderate pulmonary edema. No focal consolidation. No pleural effusion. No pneumothorax. No pneumomediastinum. Cardiomegaly. Mildly widened upper mediastinal contours. Bones: Normal for age. Extensive nodular skin lesions. IMPRESSION: Pulmonary edema. Cardiomegaly. No pleural effusion seen. CT scan - chest: Attestation: I have reviewed the pertinent imaging results. Radiologist's impression: Limited assessment secondary to patient`s body habitus and photon starvation artifacts. Heart and vasculature: Poor contrast bolus timing, which limits the evaluation for distal subsegmental pulmonary emboli. No central or proximal pulmonary emboli.. Mild cardiomegaly without pericardial effusion. Thoracic aorta and pulmonary artery are of normal caliber. Minimal atherosclerotic disease of the thoracic aorta. Lungs and pleura: Mild centrilobular and paraseptal emphysema. Patchy scattered ground-glass opacities in bilateral lung malhotra, predominantly in the dependent bibasilar segments Lymph nodes/mediastinum: No mediastinal, hilar, or axillary adenopathy. Upper abdomen: Cholelithiasis without acute cholecystitis. Bones: Multilevel degenerative changes of the spine. IMPRESSION: Suboptimal contrast bolus timing, limits the assessment for distal subsegmental pulmonary emboli. No central or proximal pulmonary embolism. Scattered patchy ground-glass opacities in bilateral lung malhotra, with interlobular septal thickening, concerning for pulmonary edema in the appropriate clinical settings. Cholelithiasis. Please note that all CT scans at this facility use dose modulation, iterative reconstruction, and/or weight-based dosing when appropriate to reduce radiation dose to as low as reasonably achievable. Assessment and Plan Assessment and plan (1) Hypoxia: Problem comment: -oxygen saturations 86-89% per EMR on scene, 89% in ED, 87% on the floor after ambulation -suspected in setting of acute pulmonary edema, complicated by obesity, h/o asthma, ANGELO untreated, recent influenza like illness (SUNIL) -D-dimer 0.92, BNP 486, Trop <0.01, CRP 5.6, no leukocytosis, triple swab negative, procalcitonin added, afebrile, no tachycardia/tachypnea -CXR shows pulmonary edema, cardiomegaly. CTA chest, limited study, negative for central or proximal PE, shows scattered patchy ground-glass opacities in bilateral lung malhotra with interlobular septal thickening, concerning from Pulmonary edema -does not appear to be a postviral pneumonia at this time, monitor -echocardiogram 09/2023 Final Impressions: 1. Technically limited exam. 2. Normal LV size, normal wall thickness, normal global systolic function with an estimated EF of 65 - 70%. 3. Right ventricular cavity size is mildly enlarged, global systolic RV function is normal. 4. The mitral valve is sclerotic, trace mitral regurgitation. 5. Moderately enlarged left atrium.. 6. RVSP 46 mmHg + RAP. IVC not well seen. -consider repeat if new or worsening symptoms or no resolve -has been referred to pulmonology following previous hospitalization but no follow through Status: Acute (2) Pulmonary edema: Problem comment: -continue IV diuresis as initiated in ED, hold home dose Lasix 20 mg daily -strict I&Os, daily weights Status: Acute (3) Chest wall pain: Problem comment: -posterior right side pain, worse with deep breath, movement -could be costochondritis following recent influenza like illness. No acute rash. CT without PE or focal consolidation. Renal function, UA, and u/o unremarkable -CT shows cholelithiasis, chronic, LFTs unremarkable, will obtain abdominal ultrasound Status: Acute (4) ANGELO (obstructive sleep apnea): Problem comment: -Noncompliant with CPAP. Referred for outpatient sleep study but has not followed up secondary to transportation issues Status: Acute (5) Asthma: Problem comment: -History of smoking. Quit [address] shows changes consistent with COPD. -incentive spirometry, Shannan olivares p.r.n.. Status: Acute (6) Atrial fibrillation: Problem comment: -dx 09/2023 -telemetry -continue metoprolol -has not been on a DOAC, only ASA following hospitalization October 2023, and has declined since Status: Acute (7) Hypothyroidism: Problem comment: -continue levothyroxine -TSH ordered Status: Acute (8) Neurofibromatosis, type I (von Recklinghausen's disease): Problem comment: -There is also a family history of Graf disease Status: Acute (9) Chronic stasis dermatitis: Problem comment: -In combination with moderate to severe lymphedema. Has a wound care nurse twice a week (today 09/09 would have been a visit) -consult to wound care clinic Status: Acute (10) Lymphedema: Problem comment: -Moderate to severe. Compression and elevation. Continue routine compression and dressing changes Status: Acute (11) Morbid obesity: Problem comment: -BMI 56.7 Status: Acute Total Time Spent Total Time Spent: Today I spent 75 minutes seeing the patient, discussing the patient with ER staff, reviewing Expanse and Epic notes/diagnostics, discussing the care plan with our team that includes social work, PT/OT, pharmacy, RT, longterm and documenting my impressions and plan in the medical record.
[2024-09-09 17:38] LABS: Magnesium* 1.7 mg/dL (1.5-2.6)
--- NOTE | 2024-09-09 17:45 | CRLHL7_ITS ---
For Patients: As a result of the Century Cures Act, medical imaging exams and procedure reports are released immediately into your electronic medical record. You may view this report before your referring provider. If you have questions, please contact your health care provider. Indication: Right-sided posterior pain, known cholelithiasis TECHNIQUE: Ultrasound abdomen limited. Sonographic images of the right upper quadrant were obtained using watts-scale and color Doppler images. Comparison: Chest CT 09/09/2024 FINDINGS: Gallbladder: Limited sonographic windows with echogenic area at the neck of the gallbladder. No gallbladder wall thickening. No pericholecystic fluid. Negative sonographic Grigsby`s sign. Common bile duct: 5 mm. Impression: Limited sonographic windows with cholelithiasis without sonographic evidence of cholecystitis. Dictated by Sergio Madison MD @ 09/09/2024 7:12:05 PM (Electronically Signed)
[2024-09-09 17:56] LABS: Procalcitonin* 0.07 ng/mL (<0.50)
[2024-09-09 18:14] LABS: HCO3 VBG 31 mmol/L (21-28); PCO2 VBG 57 mmHG (40-50); PO2 VBG < 30.1 mmHG (25-47)
--- NOTE | 2024-09-09 19:42 | PC.NURSE ---
Pt able to ambulate with walker to and from BR, needs assistance with getting from high fowlers to edge of bed as well as getting legs up into bed upon returning from BR. Pt states she uses and sleeps in left chair at her apartment. Upon returning from BR pt sat'ing in upper 80's returning to low 90's within 1-2 minutes. Pt rating flank pain 10/10 when earlier it was 20/10 but states no need for medication intervention at this time but rather asks for help repositioning. Lasix given per MAR in ED, pt having many trips to BR, pt refuses hat in toilet stating therefore unable to document actual urine output totals.
[2024-09-09] MEDS: hydrOXYzine pamoate 25 MG CAPSULE PO (20:57)
[2024-09-09] MEDS: ACETAMINOPHEN 325 MG TABLET PO (20:57)
[2024-09-09] MEDS: BUSPIRONE 10 MG TABLET PO (20:57)
[2024-09-09] MEDS: MAGNESIUM OXIDE 400 MG TABLET PO (20:57)
[2024-09-09] MEDS: MELATONIN 3 MG TABLET 9 MG PO (20:57)
[2024-09-09] MEDS: LIDOCAINE 5% PATCH 1 PATCH TRANSDERMA (20:58)
[2024-09-09] MEDS: ENOXAPARIN 40 MG/0.4 ML INJ SUBCUT (20:59)
[2024-09-09] MEDS: MAGNESIUM IV 2 GM/50 ML PIGGYBACK IVPB (20:59)
[2024-09-09] MEDS: 0.9 % SODIUM CHLORIDE 250 ml IV (21:00)
[2024-09-09] MEDS: CELECOXIB 100 MG CAPSULE PO (21:21)
[2024-09-09] MEDS: CLOTRIMAZOLE 1 % CREAM 1 APPLIC TOPICAL (21:22)
[2024-09-09] MEDS: SODIUM CHLORIDE 0.9 % (FLUSH) 10 ML SYRINGE 5 ML IVF (21:25)
[2024-09-10] VITALS (9 sets, daily range): BP systolic 118–134; BP diastolic 74–79; PULSE 63–74; RESP 18–20; TEMP 36.6–37.1; O2SAT 88–89
--- NOTE | 2024-09-10 05:53 | PC.NURSE ---
[id number] Pt slept well during night, needing just a bump of O2, just under 1 LPM to keep O2 sats between 88-92%, pt O2 low to mid 80's on RA while asleep. ambulating to br with walker SBA, tolerating activity fairly well. c/o body pain and right lower back pain, all chronic. Red skin with yeasty odor under Left breast and under abdominal folds, washed and dried. BLE wrapped upon admission done at facility prior to arrival, per pt, there are wounds present and wound care comes and does dressing changes every Monday and Monday, would consult in, Pt would not allow RN to unwrap legs to assess wounds, when asked what kind of wounds they were, pt stated they were like cellulitis.
[2024-09-10] MEDS: OMEPRAZOLE 20 MG CAPSULE DR 40 MG PO (06:30)
[2024-09-10] MEDS: LEVOTHYROXINE 75 MCG TABLET 150 MCG PO (06:30)
[2024-09-10 06:51] LABS: Hemoglobin* 14.9 gm/dL (12.0-16.0); Mean Corpuscular HGB Conc 31 gm/dL (32-36); Mean Corpuscular Hemoglobin 28 pg (26-34); Mean Corpuscular Volume 90 fL (80-100); Platelet Count* 204 K/uL (140-440); Red Blood Count 5.36 m/uL (4.00-5.20); White Blood Count* 9.56 K/uL (4.50-11.00)
[2024-09-10 06:53] LABS: HCO3 VBG 29 mmol/L (21-28); PCO2 VBG 44 mmHG (40-50); PO2 VBG 53.6 mmHG (25-47); pH VBG 7.428 (7.32-7.43)
[2024-09-10 06:54] LABS: Slide Review Reflex No
[2024-09-10 07:41] LABS: Chloride* 102 mmol/L (96-114); Potassium* 4.3 mmol/L (3.6-5.1); Sodium* 137 mmol/L (135-149)
[2024-09-10 07:44] LABS: Creatinine* 0.9 mg/dL (0.5-1.5); Est. Creatinine Clearance* 39.75; Estimated Glomerular Filt Rate 71 ml/min
[2024-09-10 07:45] LABS: Anion Gap 10 mEq/L (7-15); Blood Urea Nitrogen* 30 mg/dL (7-30); Calcium* 9.8 mg/dL (8.4-10.6); Carbon Dioxide* 25 mmol/L (20-32); Glucose* 103 mg/dL (60-115); Magnesium* 2.4 mg/dL (1.5-2.6)
[2024-09-10 07:47] LABS: C Reactive Protein* 5.8 mg/dL (0.5-1.0)
--- NOTE | 2024-09-10 08:24 | P.IMPN_ITS ---
Progress Note: A&P Assessment and plan (1) Hypoxia: Problem details: -oxygen saturations 86-89% per EMR on scene, 89% in ED, 87% on the floor after ambulation -suspected in setting of acute pulmonary edema (HFpEF), complicated by obesity, h/o asthma, ANGELO untreated, recent influenza like illness (SUNIL) -D-dimer 0.92, BNP 486, Trop <0.01, CRP 5.6, no leukocytosis, triple swab negative, procalcitonin added, afebrile, no tachycardia/tachypnea -CXR: pulmonary edema, cardiomegaly. CTA chest negative for central or proximal PE, + scattered patchy GGOs in B lung malhotra with interlobular septal thickening, concerning from Pulmonary edema -does not appear to be a postviral pneumonia at this time, monitor -echocardiogram 09/2023 Final Impressions: 1. Technically limited exam. 2. Normal LV size, normal wall thickness, normal global systolic function with an estimated EF of 65 - 70%. 3. Right ventricular cavity size is mildly enlarged, global systolic RV function is normal. 4. The mitral valve is sclerotic, trace mitral regurgitation. 5. Moderately enlarged left atrium.. 6. RVSP 46 mmHg + RAP. IVC not well seen. -consider repeat if new or worsening symptoms or no resolve -has been referred to pulmonology following previous hospitalization but no follow through Status: Acute (2) Pulmonary edema: Problem details: -h/o HFpEF with TTE results above -continue IV diuresis as initiated in ED, hold home dose Lasix 20 mg daily -strict I&Os, daily weights Status: Acute (3) Umbilical abnormality: Problem details: - appears to have a hernia with some skin irritation - concerning for atypical Sister Jaye Choi nodule, especially concerning in the setting of known Graf syndrome - reassuring EGD 2023, currently has a normal Hgb and BUN, defers aggressive workup at this time, will d/w PCP (Aleta) at her CORRECTION Status: Acute (4) Chest wall pain: Problem details: -posterior right side pain, worse with deep breath, movement -could be costochondritis following recent influenza like illness. No acute rash. CT without PE or focal consolidation. Renal function, UA, and u/o unremarkable -CT shows cholelithiasis, chronic, LFTs unremarkable -ab ultrasound c/w known cholelithiasis, no cholecystitis Status: Acute (5) ANGELO (obstructive sleep apnea): Problem details: -Noncompliant with CPAP. Referred for outpatient sleep study but has not followed up secondary to transportation issues Status: Acute (6) Asthma: Problem details: -History of smoking. Quit [address] shows changes consistent with COPD. -incentive spirometry, aerobika, DuoNebs p.r.n.. Status: Acute (7) Atrial fibrillation: Problem details: -dx 09/2023 -telemetry -continue metoprolol -has not been on a DOAC, only ASA following hospitalization October 2023, and has declined since Status: Acute (8) Hypothyroidism: Problem details: -continue levothyroxine -TSH ordered Status: Acute (9) Neurofibromatosis, type I (von Recklinghausen's disease): Problem details: -There is also a family history of Graf disease Status: Acute (10) Chronic stasis dermatitis: Problem details: -In combination with moderate to severe lymphedema. Has a wound care nurse twice a week (09/09 would have been a visit, missed 2/2 admission) -consult to wound care clinic Status: Acute (11) Lymphedema: Problem details: -Moderate/severe, continue compression and elevation, continue routine compression and dressing changes Status: Acute (12) Morbid obesity: Problem details: -BMI 56.7 Status: Acute Plan - per above - likely home 09/11 on home doses of diuretics if remains stable on RA Subjective Date Seen: 09/10/24 Interval history: Maggy was admitted to the hospital yesterday for acute hypoxic respiratory failure, presumably a combination of mild CHF exacerbation + untreated ANGELO. Also had R sided chest wall pain, known cholelithiasis. Since admission: - on IV Lasix and diuresing. Tapering off of supplemental oxygen. K wnl - seen by our wound care team for her PVD/lymphedema - R sided pain improving. Thinks this was a strain from coughing during recent URI - TSH 15, home dose of Levothyroxine increased from 6 days/week to 7 days/week This morning, Maggy endorses feeling better. No concerns for hospitalist team. Exam Narrative: Exam Narrative: GEN: Alert and oriented, answering questions appropriately HEENT: Normal external ears, EOMIs bilaterally, no scleral icterus CV: RRR, no concerning murmurs R: LCTA bilaterally without concerning wheezing, rales, or rhonchi Ab: Protuberant, tolerates palpation, + umbilical hernia with some skin irri tation Ext: Irritated erythematous skin of RLE c/w known stasis dermatitis Skin: Skin findings c/w Neurofibromatosis, + intertrigo of skin folds, no rash over area of discomfort R chest wall Neuro: No focal deficits or resting tremor, ambulating with walker Psych: Appropriate Const: Vital Signs, click to edit/add: Vital Signs - 24 hr 09/09/24 11:32 09/09/24 11:53 09/09/24 12:02 Temperature 98.2 F Pulse Rate 62 Pulse Rate [Pulse Oximeter] Pulse Rate [Right Pulse Oximeter] 67 Respiratory Rate 20 Blood Pressure 117/73 Blood Pressure [Le ft Arm] Blood Pressure [Ri ght Upper Arm] 114/74 Pulse Oximetry 96 89 94 Oxygen Delivery Me thod Nasal Cannula Nasal Cannula Nasal Cannula Oxygen Flow Rate 3 3 3 09/09/24 12:36 09/09/24 13:05 09/09/24 13:32 Temperature Pulse Rate 63 65 65 Pulse Rate [Pulse Oximeter] Pulse Rate [Right Pulse Oximeter] Respiratory Rate 22 20 Blood Pressure 156/78 H 134/79 Blood Pressure [Le ft Arm] Blood Pressure [Ri ght Upper Arm] Pulse Oximetry 93 95 93 Oxygen Delivery Me thod Nasal Cannula Nasal Cannula Nasal Cannula Oxygen Flow Rate 3 3 3 09/09/24 13:33 09/09/24 14:45 09/09/24 15:00 Temperature Pulse Rate 65 73 66 Pulse Rate [Pulse Oximeter] Pulse Rate [Right Pulse Oximeter] Respiratory Rate 24 20 22 Blood Pressure Blood Pressure [Le ft Arm] Blood Pressure [Ri ght Upper Arm] Pulse Oximetry 94 89 92 Oxygen Delivery Me thod Room Air Nasal Cannula Oxygen Flow Rate 3 09/09/24 15:36 09/09/24 16:02 09/09/24 16:42 Temperature 98.3 F Pulse Rate 68 65 Pulse Rate [Pulse Oximeter] Pulse Rate [Right Pulse Oximeter] Respiratory Rate 24 20 22 Blood Pressure 153/79 H 143/75 H Blood Pressure [Le ft Arm] 127/66 Blood Pressure [Ri ght Upper Arm] Pulse Oximetry 93 94 91 Oxygen Delivery Me thod Nasal Cannula Room Air Oxygen Flow Rate 3 09/09/24 16:48 02/10/25 16:48 09/09/24 20:04 Temperature 98.3 F 98.7 F Pulse Rate Pulse Rate [Pulse Oximeter] 73 Pulse Rate [Right Pulse Oximeter] Respiratory Rate 22 24 Blood Pressure Blood Pressure [Le ft Arm] 169/83 H Blood Pressure [Ri ght Upper Arm] Pulse Oximetry 91 91 87 L Oxygen Delivery Me thod Room Air Room Air Room Air Oxygen Flow Rate 3 09/09/24 20:08 09/09/24 21:00 09/09/24 23:00 Temperature Pulse Rate Pulse Rate [Pulse Oximeter] 73 Pulse Rate [Right Pulse Oximeter] Respiratory Rate 24 Blood Pressure Blood Pressure [Le ft Arm] Blood Pressure [Ri ght Upper Arm] Pulse Oximetry 91 91 Oxygen Delivery Me thod Room Air Room Air Oxygen Flow Rate 09/09/24 23:00 09/09/24 23:00 09/09/24 23:00 Temperature 98.4 F Pulse Rate 70 Pulse Rate [Pulse Oximeter] 71 Pulse Rate [Right Pulse Oximeter] Respiratory Rate 20 20 Blood Pressure Blood Pressure [Le ft Arm] 108/65 Blood Pressure [Ri ght Upper Arm] Pulse Oximetry 86 L 86 L Oxygen Delivery Ga thod Room Air Room Air Oxygen Flow Rate 09/10/24 08:17 09/10/24 08:22 Temperature 98.3 F Pulse Rate Pulse Rate [Pulse Oximeter] 72 Pulse Rate [Right Pulse Oximeter] Respiratory Rate 20 20 Blood Pressure Blood Pressure [Le ft Arm] 134/79 Blood Pressure [Ri ght Upper Arm] Pulse Oximetry 89 89 Oxygen Delivery Me thod Room Air Room Air Oxygen Flow Rate 0 Labs Labs: Laboratory Results - last 24 hr 09/09/24 09/09/24 09/09/24 11:40 12:09 12:12 WBC 8.71 RBC 5.00 Hgb 14.0 Hct 45.3 MCV 91 MCH 28 MCHC 31 L RDW Coeff of Lynn 14.7 Plt Count 201 Neut % (Auto) 77.3 H Lymph % (Auto) 7.9 L Good[place] % (Auto) 9.6 Eos % (Auto) 4.2 Baso % (Auto) 0.5 Neut # (Auto) 6.70 Lymph # (Auto) 0.70 L [place] # (Auto) 0.80 Eos # (Auto) 0.37 Baso # (Auto) 0.04 Abs Immat Gran (auto) 0.04 Imm/Tot Granulo (auto) 0.5 D-Dimer Quant (PE/DVT) 0.92 H VBG pH VBG pCO2 VBG pO2 VBG HCO3 Sodium 138 Potassium 4.1 Chloride 102 Carbon Dioxide 30 Anion Gap 6 L BUN 28 Creatinine 1.0 Estimated Creat Clear Estimated GFR 62 Glucose 93 Calcium 9.2 Magnesium 1.7 Total Bilirubin 0.6 Direct Bilirubin 0.3 AST 22 ALT 17 Alkaline Phosphatase 120 Troponin I < 0.01 L C-Reactive Protein 5.6 H NT-Pro-B Natriuret Pep 486 Total Protein 7.4 Albumin 4.2 Procalcitonin 0.07 TSH 15.900 H Urine Color Yellow Urine Appearance Clear Urine pH 5.5 Ur Specific [place] 1.010 Urine Protein Negative Urine Glucose (UA) Negative Urine Ketones Negative Urine Blood Negative Urine Nitrite Negative Urine Bilirubin Negative Urine Urobilinogen 0.2 Ur Leukocyte Esterase Negative Urine RBC 0-2 Urine WBC 0-2 Ur Squamous Epith Cells Few Amorphous Sediment Few A Urine Bacteria Few A SARS-CoV-2 (PCR) Negative SARS-CoV-2 Influenza Type A (PCR) Negative PCR FLU A Influenza Type B (PCR) Negative PCR FLU B RSV (PCR) Negative PCR RSV Lab Acknowledgement Test Added 09/09/24 09/09/24 09/09/24 12:12 16:42 18:01 WBC RBC Hgb Hct MCV MCH MCHC RDW Coeff of Lynn Plt Count Neut % (Auto) Lymph % (Auto) Good[place] % (Auto) Eos % (Auto) Baso % (Auto) Neut # (Auto) Lymph # (Auto) Good[place] # (Auto) Eos # (Auto) Baso # (Auto) Abs Immat Gran (auto) Imm/Tot Granulo (auto) D-Dimer Quant (PE/DVT) VBG pH 7.350 VBG pCO2 57 H VBG pO2 < 30.1 VBG HCO3 31 H Sodium Potassium Chloride Carbon Dioxide Anion Gap BUN Creatinine Estimated Creat Clear Estimated GFR Glucose Calcium Magnesium Total Bilirubin Direct Bilirubin AST ALT Alkaline Phosphatase Troponin I C-Reactive Protein NT-Pro-B Natriuret Pep Total Protein Albumin Procalcitonin TSH Urine Color Urine Appearance Urine pH Ur Specific [place] Urine Protein Urine Glucose (UA) Urine Ketones Urine Blood Urine Nitrite Urine Bilirubin Urine Urobilinogen Ur Leukocyte Esterase Urine RBC Urine WBC Ur Squamous Epith Cells Amorphous Sediment Urine Bacteria SARS-CoV-2 (PCR) Influenza Type A (PCR) Influenza Type B (PCR) RSV (PCR) Lab Acknowledgement Test Added Test Added 09/10/24 06:38 WBC 9.56 RBC 5.36 H Hgb 14.9 Hct 48.0 MCV 90 MCH 28 MCHC 31 L RDW Coeff of [place] Plt Count 204 Neut % (Auto) Lymph % (Auto) Good[place] % (Auto) Eos % (Auto) Baso % (Auto) Neut # (Auto) Lymph # (Auto) Good[place] # (Auto) Eos # (Auto) Baso # (Auto) Abs Immat Gran (auto) Imm/Tot Granulo (auto) D-Dimer Quant (PE/DVT) VBG pH 7.428 VBG pCO2 44 VBG pO2 53.6 H VBG HCO3 29 H Sodium 137 Potassium 4.3 Chloride 102 Carbon Dioxide 25 Anion Gap 10 BUN 30 Creatinine 0.9 Estimated Creat Clear 39.75 Estimated GFR 71 Glucose 103 Calcium 9.8 Magnesium 2.4 Total Bilirubin Direct Bilirubin AST ALT Alkaline Phosphatase Troponin I C-Reactive Protein 5.8 H NT-Pro-B Natriuret Pep Total Protein Albumin Procalcitonin TSH Urine Color Urine Appearance Urine pH Ur Specific [place] Urine Protein Urine Glucose (UA) Urine Ketones Urine Blood Urine Nitrite Urine Bilirubin Urine Urobilinogen Ur Leukocyte Esterase Urine RBC Urine WBC Ur Squamous Epith Cells Amorphous Sediment Urine Bacteria SARS-CoV-2 (PCR) Influenza Type A (PCR) Influenza Type B (PCR) RSV (PCR) Lab Acknowledgement
[2024-09-10] MEDS: FERROUS SULFATE 325 MG TABLET PO (08:28)
[2024-09-10] MEDS: METOPROLOL SUCCINATE (XL) 50 MG TAB PO (08:30)
[2024-09-10] MEDS: FUROSEMIDE 10 MG/ML inj 40 MG IVP ×2 (08:30→14:08)
[2024-09-10] MEDS: CETIRIZINE HCL 10 MG TABLET PO (08:30)
[2024-09-10] MEDS: CITALOPRAM HYDROBROMIDE 20 MG TABLET 30 MG PO (08:30)
[2024-09-10] MEDS: BUSPIRONE 10 MG TABLET PO ×2 (08:30→20:45)
[2024-09-10] MEDS: ASPIRIN 81 MG TAB.CHEW PO (08:30)
[2024-09-10] MEDS: CLOTRIMAZOLE 1 % CREAM 1 APPLIC TOPICAL ×2 (08:31→20:46)
[2024-09-10] MEDS: SODIUM CHLORIDE 0.9 % (FLUSH) 10 ML SYRINGE 5 ML IVF ×2 (08:31→21:30)
[2024-09-10] MEDS: CELECOXIB 100 MG CAPSULE PO ×2 (09:02→20:45)
--- NOTE | 2024-09-10 09:09 | NUTR.NU ---
RDN with nutrition screen related to positive skin risk. Patient admitted for hypoxia and PEs. Medical history significant for morbid obesity, untreated ANGELO, lymphedema, chronic venous stasis, and hypothyroidism. Patient lives at [facility]. Current weight 345 lb 8oz; height 5ft; BMI 67.5 kg/m2. Per weight history, patient has gained weight within the last year. Current diet is Regular. Dinner 2/10 was 75%, which is adequate. Per nursing, patient has warts all over body. No nutrition interventions at this time with adequate intakes and no weight loss recently. RDN will continue to monitor.
--- NOTE | 2024-09-10 11:01 | RESP.RT ---
Pt seen this AM. Very sleepy. 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 Pt does have diagnosed ANGELO, non compliant with treatment, for a variety of reasons per pt. Continue with IS, Sitting up and chair, and mobilizing at her baseline.
--- NOTE | 2024-09-10 11:10 | P.IMCN_ITS ---
Date of Consult Consult date: 09/10/24 Requesting Physician: Hospitalist Primary Care Provider: Kylah Beltran MD Consult Narrative Reason for consult: patient reported wound to LLE Narrative: Maggy Carroll is a 64 year old female. Patient lying comfortably in bed. Shares that she has known chronic lymphedema. That a home health nurse comes to her 2-3 times a week to complete compression wraps. Patient states she does not have reuse a bowl compression wraps, that she washes in reuse is old short stretch wraps. Both of her calves are wrapped with short stretch wrap, per patient this was last changed 5 days ago by her home health nurse. Patient is morbidly obese with known history of lymphedema. Patient does endorse she is not able to fully visualize her legs so she thought there were maybe a few areas open on her left calf, but wasn't confident about that. Her current lymphedema management has included the use of well-worn short stretch wraps with Kerlix underneath. To keep the wraps from falling she uses thick, abrasive, Medipore tape to anchor the proximal end of the wrap. Which seems to have understandably caused dermatitis to her left lower extremity near proximal pre-tibal area and distal anterior thigh. Nothing open on the right lower extremity, no evidence of dermatitis to the side. but again it appears Review of Systems Status of ROS: Reports: 6 or more systems reviewed and unremarkable except as noted in History and below [facility] Medical History (Updated 09/10/24 @ 15:41 by Alva Cordero BEAUTICIAN APPRENTICE) Osteoarthritis ?M19.90 - Unspecified osteoarthritis, unspecified site (ICD-10) Cholelithiasis ?K80.20 - Calculus of gallbladder without cholecystitis without obstruction (ICD-10) Morbid obesity ?E66.01 - Morbid (severe) obesity due to excess calories (ICD-10) Atrial fibrillation ?I48.91 - Unspecified atrial fibrillation (ICD-10) ANGELO (obstructive sleep apnea) ?G47.33 - Obstructive sleep apnea (adult) (pediatric) (ICD-10) Asthma ?J45.909 - Unspecified asthma, uncomplicated (ICD-10) Neurofibromatosis, type I (von Recklinghausen's disease) ?Q85.01 - Neurofibromatosis, type 1 (ICD-10) Hypothyroidism ?E03.9 - Hypothyroidism, unspecified (ICD-10) Major depression ?F32.9 - Major depressive disorder, single episode, unspecified (ICD-10) Chronic anxiety ?F41.9 - Anxiety disorder, unspecified (ICD-10) Lymphedema ?I89.0 - Lymphedema, not elsewhere classified (ICD-10) Chronic stasis dermatitis ?I87.2 - Venous insufficiency (chronic) (peripheral) (ICD-10) Surgical History H/O breast biopsy ?Z98.890 - Other specified postprocedural states (ICD-10) Status post excisional biopsy ?Z98.890 - Other specified postprocedural states (ICD-10) Cataract ?H26.9 - Unspecified cataract (ICD-10) Social History Narrative: Lives alone in [place]. 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 Nonsmoker. Drinks weekly. Never . No children. she designates Brooklyn Guo, friend, as emergency contact. She has a Uncle Rene who would also be contacted. Does not drive. What is your current living situation?: I presently have a place to live Problems where you live: no known problems Problems where you live details: n/a In the past 12 months, utilities in danger of being shut off: no In past 12 months, lack of transportation kept you from medical appts, meetings, work, or getting things needed for daily living: yes In the past 12 mos, have been you worried that your food would run out before you had money to buy more?: never true In the past 12 mos, the food you bought just didn't last and you didn't have money to buy more?: never true Highest level of school completed/degree received: some college, no degree Smoking Status: Former smoker Do you use any of these nicotine containing products: None Second hand tobacco smoke exposure: No How often do you have a drink containing alcohol: never AUDIT-C Alcohol total score: 0 Non-prescribed substance use: denies use Caffeine: Yes (soda) How often does anyone, including family, friends and others, physically hurt you : never How often does anyone, including family, friends and others, insult or talk down to you: never How often does anyone, including family, friends and others, threaten you with harm: never How often does anyone, including family, friends and others, scream or curse at you: never service: No Health Related Social Needs: transportation insecurity (Z59.82) Meds Home Medications and Allergies Home Medications ?Medication ?Instructions ?Recorded ?Confirmed ?Type acetaminophen 325 mg tablet 650 mg PO Q6H PRN 10/27/23 09/09/24 History buspirone 10 mg tablet 10 mg PO BID 10/27/23 09/09/24 History cetirizine 10 mg tablet 10 mg PO DAILY 10/27/23 09/09/24 History cholecalciferol (vitamin D3) 125 125 mcg PO DAILY 10/27/23 09/09/24 History mcg (5,000 unit) capsule citalopram 10 mg tablet 10 mg PO DAILY 10/27/23 09/09/24 History citalopram 20 mg tablet 20 mg PO DAILY 10/27/23 09/09/24 History hydroxyzine HCl 25 mg tablet 25 mg PO TID PRN 10/27/23 09/09/24 History ipratropium 0.5 mg-albuterol 3 mg 3 ml inhalation Q6H PRN 10/27/23 09/09/24 History (2.5 mg base)/3 mL nebulization soln melatonin 10 mg capsule 10 mg PO HS 10/27/23 09/09/24 History omeprazole 40 mg capsule,delayed 40 mg PO DAILY 10/27/23 09/09/24 History release taurine 500 mg capsule (Pure 1,000 mg PO DAILY 10/27/23 09/09/24 History Taurine) valerian root 500 mg capsule 500 mg PO HS 10/27/23 09/09/24 History aspirin 81 mg chewable tablet 1 tab PO DAILY 09/09/24 09/09/24 History benzonatate 100 mg capsule 100 mg PO 3XD PRN cough 09/09/24 09/09/24 History calcium carbonate (Antacid Ext Str 2 tab PO DAILY 09/09/24 09/09/24 History (calcium carb)) celecoxib 100 mg capsule 100 mg PO BID 09/09/24 09/09/24 History clotrimazole 1 % topical cream 1 applic topical BID 09/09/24 09/09/24 History furosemide 20 mg tablet 20 mg PO QAM 09/09/24 09/09/24 History magnesium oxide 400 mg (241.3 mg 400 mg PO HS 09/09/24 09/09/24 History magnesium) tablet pseudoephedrine HCl 30 mg tablet 30 mg PO Q6H PRN 09/09/24 09/09/24 History silver sulfadiazine 1 % topical 1 applic topical DIRECTED 09/09/24 09/09/24 History cream (SSD) sodium chloride 0.65 % nasal spray 2 spray intranasal QID PRN cough 09/09/24 09/09/24 History aerosol (Deep Sea Nasal) Allergies Allergy/AdvReac Type Severity Reaction Status Date / Time Penicillins Allergy Unknown Verified 09/09/24 15:41 Exam Narrative: Exam Narrative: General:NAD, alert Pulmonary: Symmetrical rise, speaking in full sentences BLE: hyper pigmentation, hyperplasia, hyperkeratosis left greater than right no open ulcerations/wounds. There is skin break down/dermatitis to left lower extremity, which is patterned in nature, consistent where Kerlix makes contact with's skin. Kerlix is abrasive and should not be placed on to patient's skin. Additional area of dermatitis to distal anterior thigh which correlates with abrasive strong adhesive tape that was on patient's skin. Per patient which is use to hold up her compression. Feet: warm, PT/DP pedal pulses he strong, palpable bilaterally Psych: normal affect Const: Vital Signs, click to edit/add: Vital Signs - 24 hr 09/09/24 11:32 09/09/24 11:53 09/09/24 12:02 Temperature 98.2 F Pulse Rate 62 Pulse Rate [Pulse Oximeter] Pulse Rate [Right Pulse Oximeter] 67 Respiratory Rate 20 Blood Pressure 117/73 Blood Pressure [Le ft Arm] Blood Pressure [Ri ght Upper Arm] 114/74 Pulse Oximetry 96 89 94 Oxygen Delivery Me thod Nasal Cannula Nasal Cannula Nasal Cannula Oxygen Flow Rate 3 3 3 09/09/24 12:36 09/09/24 13:05 09/09/24 13:32 Temperature Pulse Rate 63 65 65 Pulse Rate [Pulse Oximeter] Pulse Rate [Right Pulse Oximeter] Respiratory Rate 22 20 Blood Pressure 156/78 H 134/79 Blood Pressure [Le ft Arm] Blood Pressure [Ri ght Upper Arm] Pulse Oximetry 93 95 93 Oxygen Delivery Me thod Nasal Cannula Nasal Cannula Nasal Cannula Oxygen Flow Rate 3 3 3 09/09/24 13:33 09/09/24 14:45 09/09/24 15:00 Temperature Pulse Rate 65 73 66 Pulse Rate [Pulse Oximeter] Pulse Rate [Right Pulse Oximeter] Respiratory Rate 24 20 22 Blood Pressure Blood Pressure [Le ft Arm] Blood Pressure [Ri ght Upper Arm] Pulse Oximetry 94 89 92 Oxygen Delivery Me thod Room Air Nasal Cannula Oxygen Flow Rate 3 09/09/24 15:36 09/09/24 16:02 09/09/24 16:42 Temperature 98.3 F Pulse Rate 68 65 Pulse Rate [Pulse Oximeter] Pulse Rate [Right Pulse Oximeter] Respiratory Rate 24 20 22 Blood Pressure 153/79 H 143/75 H Blood Pressure [Le ft Arm] 127/66 Blood Pressure [Ri ght Upper Arm] Pulse Oximetry 93 94 91 Oxygen Delivery Me thod Nasal Cannula Room Air Oxygen Flow Rate 3 09/09/24 16:48 09/09/24 16:48 09/09/24 20:04 Temperature 98.3 F 98.7 F Pulse Rate Pulse Rate [Pulse Oximeter] 73 Pulse Rate [Right Pulse Oximeter] Respiratory Rate 22 24 Blood Pressure Blood Pressure [Le ft Arm] 169/83 H Blood Pressure [Ri ght Upper Arm] Pulse Oximetry 91 91 87 L Oxygen Delivery Me thod Room Air Room Air Room Air Oxygen Flow Rate 3 09/09/24 20:08 09/09/24 21:00 09/09/24 23:00 Temperature Pulse Rate Pulse Rate [Pulse Oximeter] 73 Pulse Rate [Right Pulse Oximeter] Respiratory Rate 24 Blood Pressure Blood Pressure [Le ft Arm] Blood Pressure [Ri ght Upper Arm] Pulse Oximetry 91 91 Oxygen Delivery Me thod Room Air Room Air Oxygen Flow Rate 09/09/24 23:00 09/09/24 23:00 09/09/24 23:00 Temperature 98.4 F Pulse Rate 70 Pulse Rate [Pulse Oximeter] 71 Pulse Rate [Right Pulse Oximeter] Respiratory Rate 20 20 Blood Pressure Blood Pressure [Le ft Arm] 108/65 Blood Pressure [Ri ght Upper Arm] Pulse Oximetry 86 L 86 L Oxygen Delivery Me thod Room Air Room Air Oxygen Flow Rate 09/10/24 07:15 09/10/24 08:17 09/10/24 08:22 Temperature 98.3 F Pulse Rate 63 Pulse Rate [Pulse Oximeter] 72 Pulse Rate [Right Pulse Oximeter] Respiratory Rate 20 20 Blood Pressure Blood Pressure [Le ft Arm] 134/79 Blood Pressure [Ri ght Upper Arm] Pulse Oximetry 89 89 Oxygen Delivery Me thod Room Air Room Air Oxygen Flow Rate 0 09/10/24 08:24 Temperature Pulse Rate Pulse Rate [Pulse Oximeter] 68 Pulse Rate [Right Pulse Oximeter] Respiratory Rate Blood Pressure Blood Pressure [Le ft Arm] Blood Pressure [Ri ght Upper Arm] Pulse Oximetry Oxygen Delivery Me thod Oxygen Flow Rate Documenting provider has reviewed patient's vital signs: yes Labs Labs: Short CBC 09/09/24 09/10/24 Range/Units 12:12 06:38 WBC 8.71 9.56 (4.50-11.00) K/uL Hgb 14.0 14.9 (12.0-16.0) gm/dL Hct 45.3 48.0 (33.0-51.0) % Plt Count 201 204 (140-440) K/uL BMP 09/09/24 09/10/24 12:12 06:38 Sodium 138 137 Potassium 4.1 4.3 Chloride 102 102 Carbon Dioxide 30 25 BUN 28 30 Creatinine 1.0 0.9 Glucose 93 103 Calcium 9.2 9.8 Cardiac Enzymes 09/09/24 Range/Units 12:12 Troponin I < 0.01 L (0.01-0.04) ng/mL Liver Function 09/09/24 Range/Units 12:12 Total Bilirubin 0.6 (0.1-1.5) mg/dL Direct Bilirubin 0.3 (0.0-0.5) mg/dL AST 22 (12-35) U/L ALT 17 (4-35) U/L Alkaline Phosphatase 120 (40-150) U/L Albumin 4.2 (3.3-5.0) g/dL Urine 09/09/24 Range/Units 11:40 Urine Color Yellow (Yellow) Urine Appearance Clear (Clear) Urine pH 5.5 (5.0-8.5) Ur Specific Shiner 1.010 (1.000-1.030) Urine Protein Negative (Negative) Urine Glucose (UA) Negative (Negative) Assessment and Plan Assessment and plan (1) Morbid obesity: Problem comment: -BMI 56.7 Status: Acute (2) Lymphedema: Problem comment: -Moderate/severe, continue compression and elevation, continue routine compression and dressing changes Status: Acute (3) Chronic stasis dermatitis: Problem comment: -In combination with moderate to severe lymphedema. Status: Acute Plan Wound Care Orders: * clorahexadine scrub to LLE one time- (nursing can find this at the bedside). * Cleanse leg afterwards with the unit approved cleanser. * To left calf: Circumferentially apply xeroform+ medihoney directly to skin. cover with abd. * Apply compression bilaterally to LLE, okay to use double layer of tubi-folding machine tender G until seen by OT for a longer term compression solution. * Apply zinc barrier ointment to proximal dermatitis on thigh. * Dressings at bedside. Patient advised to avoid utilizing tape to hold up her compression. Discussed with patient that if her compression is not staying in place it is not right type for her. Encouraged that when she is on outpatient she be seen in lymphedema Clinic and have custom compression made no open ulcerations or wounds. Skin breakdown to LLE is r/t to her abrasive compression applications at home. Wounds services will sign-off, but recommend patient be seen by OT for lymphedema management. Total Time Spent Total Time Spent: 40
--- NOTE | 2024-09-10 13:02 | PC.SOCIAL ---
Addendum entered by MARCELINO Manzo 09/10/24 15:41: Discharge planning: structural steel worker spoke to [employer] [place] at [facility] in [place] this afternoon. structural steel worker explained that pt should be ready for discharge back to [facility] tomorrow(09/11/24). Megha shared that if she could be back sooner rather than later, ideally before lunch, that would be best for them. structural steel worker sent Megha updated progress notes/medication list to fax number #[phone]. Social work to follow-up as needed. Original Note: Discharge planning: structural steel worker met with pt today in her room. Pt shared that she lives at [facility]. Pt gets assistance with bathing, toileting, meals, medication administration, cleaning, laundry and also has a pendant that she wears that she can press if more assistance is needed. Pt also receives home health shelter twice a week on Mondays and for wound care checks and dressing changes through [facility] Pt states that she would like to go back to her [facility] at discharge from the hospital, but states that she does not have a ride back there. structural steel worker will look into her insurance and non-emergent EMS transport. Pt gave this worker permission to reach out to the head nurse at [facility], UTE Cleveland, about pt's discharge planning. Social work to follow-up as needed.
[2024-09-10] MEDS: ACETAMINOPHEN 325 MG TABLET PO (15:39)
--- NOTE | 2024-09-10 18:54 | PC.NURSE ---
End of Shift: Patient pleasant and cooperative, A&O. VSS, afebrile. SpO2 maintained above 88% on RA. Patient reports pain on her lower back this shift, managed with PRN medication, see SEP. Patient refused lunch this shift due to having a late breakfast. 1A with walker. Tele: NSR. ?
[2024-09-10] MEDS: LIDOCAINE 5% PATCH 1 PATCH TRANSDERMA (20:44)
[2024-09-10] MEDS: MELATONIN 3 MG TABLET 9 MG PO (20:45)
[2024-09-10] MEDS: MAGNESIUM OXIDE 400 MG TABLET PO (20:45)
[2024-09-10] MEDS: hydrOXYzine pamoate 25 MG CAPSULE PO (20:45)
[2024-09-10] MEDS: ENOXAPARIN 40 MG/0.4 ML INJ SUBCUT (20:46)
--- NOTE | 2024-09-11 05:25 | PC.NURSE ---
End of shift report [id number]: ALert and oriented x 4. Pleasant and cooperative with cares. Patient denies any shortness of breath or chest pain. Pain to right mid and low back reported, pain managed with repositioning, lidocaine patch and Aqua-K pad. BLE edema, currently has LLE wrapped, patient is unable to tolerate RLE to be wrapped at this time. Patient has redness under bilateral breasts, denies pain to the areas. Cleansed well, dried and clortrimazole cream applied. Transfers and ambulates with SBA, utilizes walker for ambulation.
[2024-09-11] MEDS: LEVOTHYROXINE 75 MCG TABLET 150 MCG PO (05:56)
[2024-09-11] MEDS: hydrOXYzine pamoate 25 MG CAPSULE PO (05:56)
[2024-09-11] MEDS: OMEPRAZOLE 20 MG CAPSULE DR 40 MG PO (05:56)
[2024-09-11] MEDS: ACETAMINOPHEN 325 MG TABLET PO (05:59)
[2024-09-11 06:14] LABS: Hematocrit 46.2 % (33.0-51.0); Hemoglobin* 14.4 gm/dL (12.0-16.0); Mean Corpuscular HGB Conc 31 gm/dL (32-36); Mean Corpuscular Hemoglobin 28 pg (26-34); Mean Corpuscular Volume 90 fL (80-100); Platelet Count* 202 K/uL (140-440); Red Blood Count 5.13 m/uL (4.00-5.20)
[2024-09-11 06:20] LABS: Slide Review Reflex No
[2024-09-11 06:21] LABS: Chloride* 99 mmol/L (96-114); Potassium* 3.4 mmol/L (3.6-5.1); Sodium* 138 mmol/L (135-149)
[2024-09-11 06:24] LABS: Creatinine* 0.9 mg/dL (0.5-1.5); Est. Creatinine Clearance* 39.75; Estimated Glomerular Filt Rate 71 ml/min
[2024-09-11 06:25] LABS: Anion Gap 9 mEq/L (7-15); Blood Urea Nitrogen* 35 mg/dL (7-30); Calcium* 9.8 mg/dL (8.4-10.6); Carbon Dioxide* 30 mmol/L (20-32); Glucose* 99 mg/dL (60-115)
[2024-09-11 06:28] LABS: C Reactive Protein* 5.2 mg/dL (0.5-1.0)
[2024-09-11 07:53] VITALS: BP 121/70; PULSE 69; RESP 20; TEMP 36.8; O2SAT 88
[2024-09-11 07:58] VITALS: RESP 20; O2SAT 88
--- NOTE | 2024-09-11 08:59 | PM.DS1 ---
DS: Providers Provider Date Seen: 09/11/24 Date of admission: 09/09/24 16:42 Primary care physician: [facility] Admitting Clinician: Adam Ash MD Consults: OT, PT, SW, Wound Care Attending Physician on discharge: Nataliia Wall MD Date of Discharge: 09/11/24 DS: Diagnosis Discharge Diagnosis (1) Hypoxia: Status: Acute Problem details: -oxygen saturations 86-89% per EMR on scene, 89% in ED, 87% on the floor after ambulation -suspected in setting of acute pulmonary edema (HFpEF), complicated by obesity, h/o asthma, ANGELO untreated, recent influenza like illness (SUNIL) -D-dimer 0.92, BNP 486, Trop <0.01, CRP 5.6, no leukocytosis, triple swab negative -CXR: pulmonary edema, cardiomegaly -CTA chest: negative for central or proximal PE, + scattered patchy GGOs in B lung malhotra with interlobular septal thickening, concerning from Pulmonary edema, no PNA -outpatient echocardiogram 09/2023 c/w HFpEF (results below) -able to taper off of daytime supplemental oxygen during stay, mild hypoxia overnight with rapid return to baseline, recommend outpatient Sleep Study Final Impressions: 1. Technically limited exam. 2. Normal LV size, normal wall thickness, normal global systolic function with an estimated EF of 65 - 70%. 3. Right ventricular cavity size is mildly enlarged, global systolic RV function is normal. 4. The mitral valve is sclerotic, trace mitral regurgitation. 5. Moderately enlarged left atrium.. 6. RVSP 46 mmHg + RAP. IVC not well seen. -consider repeat if new or worsening symptoms or no resolve -has been referred to pulmonology following previous hospitalization but no follow through (2) Lymphedema: Status: Acute Problem details: -Moderate/severe, continue compression and elevation, continue routine compression and dressing changes (3) Chronic stasis dermatitis: Status: Acute Problem details: -In combination with moderate to severe lymphedema, continue outpatient Wound Care (4) Atrial fibrillation: Status: Acute Problem details: -dx 09/2023 -telemetry revealed no concerning rhythms during stay -continued home Metoprolol during stay -has not been on a DOAC, only ASA following hospitalization October 2023, and has declined since (5) Cholelithiasis: Status: Acute Problem details: -noted on current CT as well as previous CT -LFTs unremarkable, u/s consistent with same (no acute cholecystitis), tolerated regular diet without symptoms (6) Umbilical abnormality: Status: Acute Problem details: - appears to have a hernia with some skin irritation - concerning for atypical Sister Jaye Choi nodule, especially concerning in the setting of known Graf syndrome, ddx includes irritated neurofibroma - reassuring EGD 2023, currently has a normal Hgb and BUN, defers aggressive workup at this time, will d/w PCP ([facility]) at her [facility] (7) Hypothyroidism: Status: Acute Problem details: -continue levothyroxine -TSH 15, recommend outpatient recheck 3-4 weeks (8) Neurofibromatosis, type I (von Recklinghausen's disease): Status: Acute Problem details: -noted, + family h/o Graf syndrome (9) ANGELO (obstructive sleep apnea): Status: Acute Problem details: -Noncompliant with CPAP. Referred for outpatient sleep study but has not followed up 2/2 transportation issues (10) Asthma: Status: Acute Problem details: -History of smoking remotely; previous imaging exhibits changes c/w COPD -incentive spirometry, aerobika, DuoNebs prn (11) Pulmonary edema: Status: Acute Problem details: -h/o HFpEF with TTE results reviewed -treated with IV Furosemide (40mg BID) with + diuresis and improvement in breathing/hypoxia -upon discharge will increase home Furosemide dose from 20mg once daily --> 20mg BID, close PCP f/u (12) Chest wall pain: Status: Acute Problem details: -posterior right side pain, worse with deep breath, movement - IMPROVED during stay -ddx: MSK/costochondritis after recent URI/coughing, no rash/skin findings, reassuring CXR and CT. Renal function, UA, and u/o unremarkable -CT shows chronic cholelithiasis, u/s also reassuring, LFTs unremarkable DS: Summary Hospital Course Hospital Course: Maggy was admitted to the hospital on 09/09/24 for acute hypoxic respiratory failure, presumably a combination of mild CHF exacerbation, recent URI recovery, + untreated ANGELO. Also presented with R sided chest wall pain. During stay: - treated with IV Lasix for diuresis, tapered off of supplemental oxygen to RA. Potassium mildly low on day of discharge, supplemented with close outpatient f/u - seen by our wound care team for her PVD/lymphedema, will continue outpatient HH for management - R sided pain, improved. Thinks this was a strain from coughing during recent URI (workup included no acute R sided abnormalities on CXR or CT, reassuring RUQ u/s, reassuring skin exam) - TSH 15, home dose of Levothyroxine increased from 6 days/week to 7 days/week Medically appropriate for discharge home ([facility]) on 09/11/24 with close PCP f/u ([facility]). Status at Discharge Functional status at discharge: uses cane/walker Overall status at discharge: patient is progressing back to baseline Time Spent with Patient Time attestation: Total time spent providing and/or coordinating discharge services: Time spent: Greater than 30 minutes Specific discharge activities: Medication reconciliation, discharge planning with multidisciplinary team, reviewing plan of care with patient Exam Narrative: Exam Narrative: GEN: Alert and oriented, answering questions appropriately HEENT: EOMIs bilaterally, no scleral icterus CV: RRR, no concerning murmurs R: No tachypnea, no rales or wheezing Ext: Irritated erythematous skin of BLE (R>L) c/w known stasis dermatitis, lymphedema Skin: Skin findings c/w Neurofibromatosis Neuro: No focal deficits or resting tremor, ambulating with walker Psych: Appropriate Const: Vital Signs, click to edit/add: Vital Signs - 24 hr 09/10/24 15:01 09/10/24 15:43 09/10/24 15:44 Temperature 98.7 F Pulse Rate 70 Pulse Rate [Pulse Oximeter] 70 Respiratory Rate 18 18 Blood Pressure [Le ft Arm] 127/74 Pulse Oximetry 88 88 Oxygen Delivery Me thod Room Air Room Air Oxygen Flow Rate 09/10/24 15:45 09/10/24 23:00 09/10/24 23:00 Temperature Pulse Rate 66 Pulse Rate [Pulse Oximeter] 70 74 Respiratory Rate 18 18 Blood Pressure [Le ft Arm] Pulse Oximetry Oxygen Delivery Me thod Oxygen Flow Rate 09/10/24 23:00 09/10/24 23:00 09/11/24 07:53 Temperature 97.8 F 98.3 F Pulse Rate Pulse Rate [Pulse Oximeter] 74 69 Respiratory Rate 18 18 20 Blood Pressure [Le ft Arm] 118/78 121/70 Pulse Oximetry 89 89 88 Oxygen Delivery Me thod Room Air Room Air Room Air Oxygen Flow Rate 09/11/24 07:58 Temperature Pulse Rate Pulse Rate [Pulse Oximeter] Respiratory Rate 20 Blood Pressure [Le ft Arm] Pulse Oximetry 88 Oxygen Delivery Me thod Room Air Oxygen Flow Rate 0 DS: Data Data Completed and Pending Completed studies during hospitalization: Procedures Excision of Duodenum, Via Natural or Artificial Opening Endoscopic, Diagnostic (10/27/23) Excision of Large Intestine, Via Natural or Artificial Opening Endoscopic, Diagnostic (10/27/23) Excision of Stomach, Pylorus, Via Natural or Artificial Opening Endoscopic, Diagnostic (10/27/23) Inspection of Lower Intestinal Tract, Via Natural or Artificial Opening Endoscopic (10/27/23) Labs on day of discharge: Labs from last 24 hours 09/11/24 05:42 WBC 8.60 RBC 5.13 Hgb 14.4 Hct 46.2 MCV 90 MCH 28 MCHC 31 L Plt Count 202 Sodium 138 Potassium 3.4 L Chloride 99 Carbon Dioxide 30 Anion Gap 9 BUN 35 H Creatinine 0.9 Estimated Creat Clear 39.75 Estimated GFR 71 Glucose 99 Calcium 9.8 C-Reactive Protein 5.2 H Discharge Plan Discharge Disposition: [facility] Date of Admission: 09/09/24 16:42 Attending Provider on Discharge: Nataliia Wall Consulting Providers: Luisa Chiang; Alva Cordero Primary Care Provider: Kylah Beltran Condition: Stable Discharge Medications: New furosemide 40 mg tablet 40 mg PO DAILY Qty: 30 0RF Rx Instructions: dose increase potassium chloride 10 mEq capsule, extended release 10 meq PO DAILY Qty: 30 0RF levothyroxine [Synthroid] 75 mcg Tablet 150 mcg PO DAILY@0700 Qty: 30 0RF Rx Instructions: DAILY (previously only taking 6d/week) Continued cetirizine 10 mg tablet 10 mg PO DAILY citalopram 10 mg tablet 10 mg PO DAILY Patient Comments: 30 MG TOTAL omeprazole 40 mg capsule,delayed release(DR/EC) 40 mg PO DAILY citalopram 20 mg tablet 20 mg PO DAILY Patient Comments: 30 MG TOTAL buspirone 10 mg tablet 10 mg PO BID hydroxyzine HCl 25 mg tablet 25 mg PO TID PRN cholecalciferol (vitamin D3) 125 mcg (5,000 unit) capsule 125 mcg PO DAILY acetaminophen 325 mg tablet 650 mg PO Q6H PRN ipratropium-albuterol 0.5 mg-3 mg(2.5 mg base)/3 mL solution for nebulization 3 ml inhalation Q6H PRN melatonin 10 mg capsule 10 mg PO HS Pure Taurine 500 mg capsule 1,000 mg PO DAILY valerian root 500 mg capsule 500 mg PO HS ferrous sulfate 325 mg (65 mg iron) tablet 325 mg PO DAILY Qty: 100 3RF metoprolol succinate 50 mg tablet extended release 24 hr 50 mg PO DAILY Qty: 90 1RF benzonatate 100 mg capsule 100 mg PO 3XD PRN (Reason: cough) aspirin 81 mg tablet,chewable 1 tab PO DAILY Antacid Ext Str (calcium carb) 300 mg (750 mg) tablet,chewable 2 tab PO DAILY celecoxib 100 mg capsule 100 mg PO BID clotrimazole 1 % cream 1 applic topical BID silver sulfadiazine [SSD] 1 % cream 1 applic topical DIRECTED magnesium oxide 400 mg (241.3 mg magnesium) tablet 400 mg PO HS Deep Sea Nasal 0.65 % aerosol,spray 2 spray INTRANASAL QID PRN (Reason: cough) pseudoephedrine HCl 30 mg tablet 30 mg PO Q6H PRN Discontinued levothyroxine [Synthroid] 150 mcg tablet 150 mcg PO DAILY Qty: 30 0RF Patient Comments: SKIP MONDAY Rx Instructions: Take 1 tablet 6 days a week. Skip 1 day a week. furosemide 20 mg tablet 20 mg PO QAM Discharge Orders: Discharge Order (Routine); Ordered 09/11/24 Ordered By: Nataliia Wall Additional Instructions: Medication changes: INCREASE FUROSEMIDE from 20 --> 40mg daily. This may need to be increased again, make sure your health care team is monitoring your oxygen saturations and fluid balance. ADD Potassium supplementation once/day (Furosemide can decrease your potassium) Take your Synthroid EVERY day instead of 6d/week Check potassium and kidney function next week. Keep an eye on your belly button, could be an irritated nodule or an atypical lymph node. Good idea to consider a sleep study or Pulmonology f/u. Activity Level: Activity as Tolerated Discharge Diet: Regular and Heart Healthy (2 gm sodium, low fat) Follow Up Appointments: Kylah Beltran MD [Primary Care Provider] - Provider,Not a Local [Non-Staff] - (Patient seen by [facility] at her facility. Recommend that someone from that group sees her within a week. ) Forms: [facility] Info Instructions Wound Care: [facility] (twice weekly wound care visits with RN) Admit to: Assisted Living Discharge Potential: Poor Length of Stay: >90 days Can use facility standing orders?: Yes Code Status: DNR/DNI Oxygen: No Urinary Catheter: No Lab Orders: BMP in 7-10 days Orders are good >30 days: Yes Signature: Nataliia Wall MD
[2024-09-11 09:12] VITALS: PULSE 73
[2024-09-11] MEDS: POTASSIUM BICARB 25 MEQ EFFERVESCENT TAB 50 MEQ PO (09:33)
[2024-09-11] MEDS: CLOTRIMAZOLE 1 % CREAM 1 APPLIC TOPICAL (09:33)
[2024-09-11] MEDS: CITALOPRAM HYDROBROMIDE 20 MG TABLET 30 MG PO (09:34)
[2024-09-11] MEDS: ASPIRIN 81 MG TAB.CHEW PO (09:34)
[2024-09-11] MEDS: CETIRIZINE HCL 10 MG TABLET PO (09:34)
[2024-09-11] MEDS: METOPROLOL SUCCINATE (XL) 50 MG TAB PO (09:34)
[2024-09-11] MEDS: BUSPIRONE 10 MG TABLET PO (09:34)
[2024-09-11] MEDS: FUROSEMIDE 10 MG/ML inj 40 MG IVP (09:35)
[2024-09-11] MEDS: CELECOXIB 100 MG CAPSULE PO (09:37)
[2024-09-11] MEDS: SODIUM CHLORIDE 0.9 % (FLUSH) 10 ML SYRINGE 5 ML IVF (09:38)
[2024-09-11] MEDS: FERROUS SULFATE 325 MG TABLET PO (09:38)
--- NOTE | 2024-09-11 11:40 | PC.SOCIAL ---
Discharge planning: Pt will discharge back to [facility] in [place] this morning via non-emergent EMS transport. land surveying survey worker did talk to the pt about the possibility of her insurance not covering the transportation cost(pt has MA so the cost will most likely be covered). Pt did sign the non-emergent transportation wheelchair form. Cost of the transportation if insurance does not cover it would be $225.00([id number]= 225). Discharge orders were faxed to [facility] at fax #[phone] by the charge nurse on duty and nurse to nurse report was completed. land surveying survey worker also faxed resumption of care orders to [facility] whom the pt has long term for wound care/checks services through. Social work to follow-up as needed.
--- NOTE | 2024-09-11 11:44 | PC.NURSE ---
Pt alert and oriented. Pt had no complaints of pain. Pt up with SBA with walker and gait belt. Pt discharging back to [facility]. Nurse to Nurse report done with Iris UNGER and Megha UNGER. IV removed; catheter intact. VS WNL on RA. EMS transfered Pt.
== END 2024-09-11 10:28 | DRG 291 ==
LOC: ED 15:33 → MEDSURG 15:59
PROVIDERS: Admitting Provider Physician Assistant; Emergency Provider Family Medicine; PCP Family Medicine; Visit Provider Family Medicine
DX: I50.33 Acute on chronic diastolic (congestive) heart failure (principal); J96.01 Acute respiratory failure with hypoxia; Z68.43 Body mass index [BMI] 50.0-59.9, adult; L97.921 Non-pressure chronic ulcer of unspecified part of left lower leg limited to breakdown of skin; L97.911 Non-pressure chronic ulcer of unspecified part of right lower leg limited to breakdown of skin; G47.33 Obstructive sleep apnea (adult) (pediatric); I89.0 Lymphedema, not elsewhere classified; I87.2 Venous insufficiency (chronic) (peripheral); Z91.199 Patient's noncompliance with other medical treatment and regimen due to unspecified reason; R07.89 Other chest pain; I48.91 Unspecified atrial fibrillation; Q85.01 Neurofibromatosis, type 1; E66.01 Morbid (severe) obesity due to excess calories; K42.9 Umbilical hernia without obstruction or gangrene; J45.909 Unspecified asthma, uncomplicated; K80.20 Calculus of gallbladder without cholecystitis without obstruction; E03.9 Hypothyroidism, unspecified; Z87.891 Personal history of nicotine dependence; Z59.82 Transportation insecurity
CPT/HCPCS: 36415; 71046; 71275; 76705; 80048; 80076; 81001; 82803; 83735; 83880; 84145; 84443; 84484; 85025; 85027; 85379; 86140; 87086; 87631; 97116; 97162; 97165; 97530; 97535; 99284; 99285; A9270; J1650; J1940; J3475; J7050; Q9967

== ENCOUNTER 2024-09-11 10:18 | Outpatient (CLI) | payer OTHER, SELFPAY | END 2024-09-11 10:19 | disposition home or self-care (01) | PROVIDERS: PCP Family Medicine; Visit Provider Student in an Organized Health Care Education/Training Program | DX: R09.02 Hypoxemia (principal); J81.1 Chronic pulmonary edema; R07.89 Other chest pain | CPT/HCPCS: A0425; A0428 ==